=== PATIENT | male | born 1955 | race Caucasian/White ===

== ENCOUNTER 2019-04-22 21:56 | Emergency (ER) | payer MEDICARE, MEDICAID, SELFPAY ==
[2019-04-22 21:57] VITALS: BP 155/96; PULSE 103; PULSE 107; RESP 22; TEMP 36.5; O2SAT 93; O2SAT 95; BMI 39.9
--- NOTE | 2019-04-22 22:05 | EKG12_ITS ---
Test Reason : SOB Blood Pressure : / mmHG Vent. Rate : 100 BPM Atrial Rate : 100 BPM P-R Int : 168 ms QRS Dur : 132 ms QT Int : 364 ms P-R-T Axes : 048 -68 015 degrees QTc Int : 469 ms Normal sinus rhythm Possible Left atrial enlargement Right bundle branch block Left anterior fascicular block Bifascicular block Abnormal ECG Confirmed by KRAIG SINGH ([id number]), web editor ANTOINE GURROLA ([id number]) on 04/27/2019 9:21:57 AM Referred By: CHRISTIAN Confirmed By:KRAIG SINGH
[2019-04-22 22:07] VITALS: BP 149/102; PULSE 98; RESP 18; TEMP 36.5; O2SAT 94
--- NOTE | 2019-04-22 22:12 | NURSING ---
PT STATES HE IS HOMELESS AT THIS TIME AND HAS NOT BEEN TAKING HIS HOME MEDICATIONS. IS UNSURE OF EXACTLY WHICH MEDIATIONS HE IS PRESCRIBED
--- NOTE | 2019-04-22 22:27 | RAD_ITS ---
STUDY: X-RAY CHEST REASON FOR EXAM: Male, 63 years old. sob with cough and just not feeling well x 2 days TECHNIQUE: PA and lateral COMPARISON: None. FINDINGS: There is no demonstrated pleural abnormality. There is scattered mild pulmonary scarring. Normal size heart. Normal mediastinum and kathia. Normal visualized pulmonary arteries. Normal visualized aortic arch and descending thoracic aorta. Normal visualized thoracic spine. Normal visualized ribs, clavicles, and shoulders. There is no demonstrated abnormality of the visualized soft tissue structures of the upper abdomen. RAD/Chest PA and Lateral IMPRESSION: Scattered mild pulmonary scarring Electronically Signed: Hector Wu, at 22:57 EDT Tel , Service support ,
--- NOTE | 2019-04-22 22:33 | ED.VISSUMM ---
- ER Visit Summary Date of Service: 04/22/19 Chief Complaint: Cough History of Present Illness: The patient is a 63 M history of CAD with a prior CABG. History of COPD and diet-controlled diabetes. He states the last 2 days has had nonproductive cough. Chills. No fever. And today developed nausea, vomiting and diarrhea. Denies any chest pain. No leg pain or swelling. No hemoptysis. Physical Examination: Older male no acute distress vital signs stable afebrile. Pulse ox 95% on room air no signs of hypoxia. H EENT exam unremarkable. Moist posterior pharynx. No erythema or exudate. Neck nontender no JVD. No lymphadenopathy. Lungs dry cough but no rales, rhonchi or wheezing. Equal symmetrical. Heart regular rhythm rate about 100 no murmur. Abdomen soft and nontender. Normal bowel sounds no peritoneal signs. Patient is moving all 4 extremities are neurovascular intact. Calves are nontender without edema or cords. Neurologically is awake and alert with no focal motor deficits. Test Results: EKG shows a normal sinus rhythm rate of 100 no signs of AL or ischemia. Patient does have a right bundle branch block. Chest x-ray AP and lateral 2 views read by myself shows no acute abnormality. Normal cardiac silhouette. No significant cardiomegaly. No congestive heart failure. No infiltrate. Emergency Department Course and Treatment: History and exam are consistent with a viral URI. He is a cough but he also has nausea, vomiting and diarrhea. Clinically does not look dehydrated. I do not think he needs labs. Treatment Plan: Zofran as needed for nausea. Fluids and rest. Follow-up with his doctor if not improving. At this time I do not feel he needs any antibiotics. Disposition: Discharge Impression: Acute viral URI (viral syndrome) This note was generated with [email or web address] dictation software. It may contain incorrect words, spelling, and punctuation that were not noted in review of the chart prior to signing ED Disposition - Plan for ED Patient: Referrals: Hector Head DO [Primary Care Provider] -
--- NOTE | 2019-04-22 22:37 | ED.DEP ---
ED Disposition - Plan for ED Patient: Disposition: Home or Assisted Living Instructions: BRONCHITIS, No Antibiotic (Adult) Prescriptions: Ondansetron [Zofran Odt] 4 mg PO Q8H PRN PRN #7 tab PRN Reason: Nausea Prescription Printed Referrals: Hector Head DO [Primary Care Provider] - 3-5 Days if not improving Additional Instructions: Plenty of fluids and rest. [id number] cough syrup as needed. Zofran as needed for nausea. Follow-up with your doctor if not improving. Return to the ER if you are feeling worse
[2019-04-22 22:44] VITALS: BP 157/75; PULSE 102; RESP 17; O2SAT 97
== END 2019-04-22 22:50 | disposition home or self-care (01) ==
PROVIDERS: Emergency Provider Emergency Medicine; PCP Preventive Medicine Occupational Medicine
DX: J06.9 Acute upper respiratory infection, unspecified (principal); I25.10 Atherosclerotic heart disease of native coronary artery without angina pectoris; Z95.1 Presence of aortocoronary bypass graft
CPT/HCPCS: 71046; 93005; 99282

== ENCOUNTER 2019-05-17 18:28 | Inpatient (IN) | payer MEDICARE, MEDICAID, SELFPAY ==
[2019-05-17] VITALS (12 sets, daily range): BP systolic 94–116; BP diastolic 59–85; PULSE 67–84; RESP 13–23; TEMP 35.8–36.9; O2SAT 62–98; BMI 35.9; BMI 34.1
--- NOTE | 2019-05-17 18:31 | EKG12_ITS ---
Test Reason : OVERDOSE Blood Pressure : / mmHG Vent. Rate : 081 BPM Atrial Rate : 081 BPM P-R Int : 188 ms QRS Dur : 130 ms QT Int : 462 ms P-R-T Axes : 067 -64 032 degrees QTc Int : 536 ms Normal sinus rhythm Right bundle branch block Left anterior fascicular block Bifascicular block Abnormal ECG Confirmed by LEXIE MENDOZA, MATEO ([id number]), research editor ANTOINE GURROLA ([id number]) on 05/19/2019 9:36:00 AM Referred By: RAQUEL Confirmed By:ROSALIE OWEN MD
--- NOTE | 2019-05-17 18:33 | ED.VIS.GEN ---
History of Present Illness Chief Complaint: Unresponsive Informant: Patient Onset: Today Context: - - unknown onset Timing: Lasts - until Narcan given by EMS Quality: lethargic/unresponsive Current Severity: gone Maximum Severity: Severe Relieved by: narcan Narrative: Patient admits to snorting heroin prior to eating a sandwich today. Apparently while eating the sandwich he lost consciousness. Patient does remember snorting heroin, does not remember much else. Paramedics gave him 4 mg total of Narcan intranasally, after they saw his only eye was pinpoint. As a result he woke up. Patient denies complaints right now. He is difficult to understand since he is edentulous. He states he did not mean to do heroin; he thought he was doing methamphetamine, as he states he is now upset with his drug dealer. Past Medical History - Allergies and Home Meds Allergies/Adverse Reactions: Allergies Penicillins [PCN] Allergy (Verified 05/17/19 18:33) Rash Primary Care Physician: Hector Head DO [Primary Care Provider] - Smoking Status: Former smoker Drugs: Heroin Review of Systems ROS: Unable to Obtain - limited due to lethargy and edentulous ENT: Denies: Rhinorrhea, Sore throat Cardiovascular: Denies: Chest pain Respiratory: Denies: Dyspnea, Cough, Sputum Gastrointestinal: Denies: Abdominal pain, Nausea, Diarrhea Musculoskeletal: Denies: Neck pain, Back pain, Extremity Pain Neurological: Denies: Headache, Weakness, Numbness Physical Exam Vital Signs/Narrative: Vital Signs Temp Pulse Resp BP Pulse Ox 05/17/19 18:29 96.5 F L 84 18 94/59 L 62 Inital Vital Signs reviewed: Yes General: Well nourished, Well developed, Obese, Unkempt, No Acute Distress Head: Normocephalic, Atraumatic Eyes: - - Right eye pupil pinpoint ENT: Moist mucous membranes - With evidence of emesis/bits of food in his mouth and posterior oropharynx. Airway patent, no stridor, no respiratory distress. No trismus., No rhinorrhea Neck: Supple, Nontender, No lymphadenopathy Cardiovascular: Regular rate, Regular rhythm, No murmurs. Negative for: Tachycardia Respiratory: No distress, Chest nontender, Rales - Coarse breath sounds bilaterally, equal. Trachea midline. Abdomen: Soft, Nontender, Nondistended, Normal bowel sounds Extremities: Nontender, No edema Skin: Normal color, No rash, No Trauma Neurological: Alert, Oriented x3, Cranial nerves II-XII grossly intact, Normal Strength, Normal Sensation, Lethargic - Slightly Psychological: Normal affect, Normal Mood Diagnostic/Tx/Re-eval Impressions Chest X-Ray 05/17/19 18:55 IMPRESSION: Normal x-ray examination of the chest. Electronically Signed: Francois DO Esteban at 19:47 EDT Tel [phone], Service support , 05/17/19 18:55 Chest 1 View (Portable) [RAD] Stat Laboratory Results 05/17/19 05/17/19 05/17/19 18:40 18:40 18:40 WBC 6.8 RBC 4.88 Hgb 14.5 Hct 46.8 MCV 95.9 H MCH 29.7 MCHC 31.0 L RDW Std Deviation 50.8 H RDW Coeff of Julianne 14.4 Plt Count 239 MPV 12.3 H Immature Gran % (Auto) 0.300 Neut % (Auto) 39.5 L Lymph % (Auto) 36.9 [place] % (Auto) 15.5 H Eos % (Auto) 6.2 H Baso % (Auto) 1.6 H Absolute Neuts (auto) 2.7 Absolute Lymphs (auto) 2.50 Nucleated RBC % 0 Sodium 141 Potassium 3.2 L Chloride 105 Carbon Dioxide 31.0 Anion Gap 5 BUN 29 H Creatinine 2.06 H Estim Creat Clear Calc 36.91 Est GFR (MDRD) Af Amer 42 L Est GFR (MDRD) Non-Af 35 L BUN/Creatinine Ratio 14.1 Glucose 208 H Calcium 9.0 Troponin I 0.032 Ethyl Alcohol < 3.0 - Rhythm Strip Rhythm Strip: Sinus Rhythm Rate: 81 Ectopy: None - EKG Initial EKG Interpretation: Sinus Rhythm, No Acute Injury Pattern, RBBB, LAFB Prior: Unchanged - Medical Decision Making Soon after the initial evaluation patient became more lethargic and more hypoxic into the 60s. He was given 2 mg intranasal of Narcan, prior to the IV being placed. He became more alert and did not require any more Narcan throughout his ED stay for the next 2.5 hours. Labs and chest x-ray are above. We took him off of the oxygen, he quickly desatted down to 79%. He required a nonrebreather to stay at or above 90%. Given all that I suspect he probably aspirated as there is evidence of emesis in his mouth upon arrival. It is not showing up on chest x-ray. Plan is for admission and further treatment. - Critical Care Time Critical care time (excluding procedures): 30-74 minutes - 30 min, Including time spent:, Discussing w/Patient &/or Family/Documentation Billing Clerk, Discussing w/Consultants, Arranging Admission or Transfer, Performing Direct Patient Care at Bedside ED Disposition - Plan for ED Patient: Disposition: Acute Care Hospital [facility] Diagnosis: Accidental heroin overdose, Hypoxemia, Aspiration of gastric contents Referrals: Hectro Head DO [Primary Care Provider] -
[2019-05-17] MEDS: Naloxone 2 MG/2 ML Syringe NS (18:35)
--- NOTE | 2019-05-17 18:55 | RAD_ITS ---
STUDY: X-RAY CHEST REASON FOR EXAM: Male, 63 years old. Unresponsive TECHNIQUE: Frontal view COMPARISON: April 22, 2019 FINDINGS: The lungs are clear and expanded. There is no demonstrated pleural abnormality. Normal size heart. Normal mediastinum and kathia. Normal visualized pulmonary arteries. Normal visualized aortic arch and descending thoracic aorta. Normal visualized thoracic spine. Normal visualized ribs, clavicles, and shoulders. There is no demonstrated abnormality of the visualized soft tissue structures of the upper abdomen. RAD/Chest 1 View (Portable) IMPRESSION: Normal x-ray examination of the chest. Electronically Signed: Francois Orellana DO at 19:47 EDT Tel [phone], Service support ,
[2019-05-17 19:04] LABS: Absolute Neutrophil Count 2.7 X10^3/uL (2.0-7.7); Basophil# 0.11 X10^3/uL; Basophil% 1.6 % (0-1); Eosinophil# 0.42 X10^3/uL; Eosinophils% 6.2 % (0-5); Hematocrit 46.8 % (40-54); Hemoglobin 14.5 g/dL (13.0-16.5); Lymphocyte % 36.9 % (19-41); Mean Corpuscular Hgb 29.7 pg (27.0-32.0); Mean Corpuscular Volume 95.9 fL (80-94); Mean Platelet Vol. 12.3 fl (6.2-12.0); Monocyte# 1.05 X10^3/uL; Monocyte% 15.5 % (0-10); NRBC Flagged by Analyzer 0 % (0-5); Neutrophil # 2.67 X10^3/uL (2.7-7.7); Neutrophil % 39.5 % (47-70); Platelet Count 239 K/mm3 (150-450); RBC Distribution Width CV 14.4 % (11.6-14.6); RBC Distribution Width SD 50.8 fl (35.1-43.9); Red Blood Count 4.88 M/mm3 (4.6-6.2); White Blood Count 6.8 K/mm3 (4.4-11.0)
[2019-05-17 19:19] LABS: Anion Gap 5 (5-15); BUN 29 mg/dL (7-18); BUN/Creat Ratio 14.1 RATIO (10-20); Chloride 105 mmol/L (98-107); Creatinine, Serum 2.06 mg/dL (0.70-1.30); EST Glomerular Filtration Rate 35 mL/min (>60); Est Glom Filt Rate - Afr Amer 42 mL/min (>60); Estimated Creatinine Clearance 36.91 ml/min; Glucose 208 mg/dL (74-106); Potassium 3.2 mmol/L (3.5-5.1); Sodium Level 141 mmol/L (136-145)
[2019-05-17 19:32] LABS: Alcohol, Blood (Medical)-Serum < 3.0 mg/dL
--- NOTE | 2019-05-17 21:18 | ED.RN ---
pt consented to giving his car keys to his sister as she states his windows are down.
--- NOTE | 2019-05-17 21:19 | HP.PCM_ITS ---
Problem List (1) Acute respiratory failure with hypoxia Status: Acute (2) Aspiration of gastric contents Status: Acute Qualifiers: Encounter type: initial encounter Qualified Code(s): T17.910A - Gastric contents in respiratory tract, part unspecified causing asphyxiation, initial encounter (3) Accidental heroin overdose Status: Acute Qualifiers: Encounter type: initial encounter Qualified Code(s): T40.1X1A - Poisoning by heroin, accidental (unintentional), initial encounter (4) KAYLEIGH (acute kidney injury) Status: Acute (5) Hypokalemia Status: Acute (6) Hyperglycemia Status: Acute (7) Chronic pain syndrome Status: Chronic (8) Former tobacco use Status: Chronic (9) Polysubstance abuse Status: Chronic History of Present Illness Date of Admission: 05/17/19 Chief Complaint: LOC, Aspiration The patient is a 63 y/o M w/ PMHx: Chronic Pain Syndrome with Neuropathy, Polysubstance abuse, Former Tobacco use, 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 He states he does not normally use cocaine. Work-up in the ED included T 96.5, heart rate 84, BP 94/59, respiratory rate 18, initially 62% on room air with improvement to 92% on a nonrebreather, BC with WBC 6.8, hemoglobin 14.5, platelet 239 with no evidence of left shift, BMP with potassium 3.2, BUN/creatinine 29/2.06, glucose 2 8, troponin 0 0.032, ethyl alcohol less than 3, x-ray with no acute cardiopulmonary findings, EKG with sinus rhythm with right bundle branch block and a left anterior fascicular block with no acute evidence of ischemia. In the ED patient administered additional Narcan therapy. Past Medical History Past Medical History (Chronic Problems): Chronic Problems Chronic pain syndrome (Chronic) Former tobacco use (Chronic) Polysubstance abuse (Chronic) Allergies Penicillins [PCN] Allergy (Verified 05/17/19 18:33) Rash Home Medications: Ambulatory Orders Medication Instructions Recorded Gabapentin [Neurontin] 300 mg PO BID 04/22/19 Surgical History: - - Tonsillectomy, cholecystectomy, left eye surgery following trauma. Psychiatric History: Anxiety, Depression Lives: Friends Smoking Status: Former smoker Tobacco Use: Non-smoker Alcohol: None Drugs: - - Methampetamines, denies heroin but recent usage (snorted) - *Family History Maternal History Items: - - Patient notes a maternal family history of cancer, unclear type. Paternal History Items: - - Patient states he does not know his father well but denies any market heart disease, diabetes or cancer to his knowledge. Review of Systems Constitutional: Reports: Anorexia, Malaise, Weakness, Fatigue. 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 HEENT: Denies: Head Aches, Sinus Congestion, Sinus Drainage Cardiovascular: Reports: Syncope. Denies: Chest Pain, Chest Pressure, Chest Tightness, Light Headedness, Palpitations Respiratory: Reports: Shortness of Breath, Shortness of breath at rest, Shortness of breath upon exertion. Denies: Cough, Sputum production Gastrointestinal: Denies: Abdominal Pain, Nausea, Vomiting Genitourinary: Denies: Dysuria Musculoskeletal: Reports: Back Pain, Joint Pain. Denies: Joint Tenderness Skin: Denies: Rash, Wounds Neurological: Denies: Numbness, Tingling, Focal weakness Psychiatric: Reports: Anxiety, Depression. Denies: Homicidal Ideations, Suicidal Ideations Hematologic/ Lymphatic: Denies: Easy Bruising, Easy Bleeding VTE Information - Inpt Only VTE Present on Admission: No VTE Mechan Device Prophylaxis: SCD's VTE Pharm Prophylaxis ordered?: Yes Patient Problems: Active and Suspected Problems Accidental heroin overdose (Acute) Hypoxemia (Acute) Aspiration of gastric contents (Acute) Acute respiratory failure with hypoxia (Acute) KAYLEIGH (acute kidney injury) (Acute) Hypokalemia (Acute) Hyperglycemia (Acute) Subjective: Seated upright in ED bed, fatigued appearance, notes still dyspneic sensation. Objective: Physical Examination: General: Awakens to stimuli, intermittently alert, lethargic but answering questions although slow response, oriented to self, place and some recent events, remains cooperative, seated upright in the ED bed, no obvious respiratory distress but remains on nonrebreather with significant hypoxia with attempted removal. Skin: normal color, turgor, no icterus, cyanosis. HEENT: AT/NC, EOM right eye intact, left eye globe status post trauma, right pupil round and reactive, dry MM, no carotid bruits or JVD noted. Lungs: Significantly reduced breath sounds throughout, greater bases, mildly decreased effort, nonrebreather in place with no evidence of obvious distress, no rales, ronchi or wheezing. Heart: Regular rate and rhythm; no gallop, rub audible. Abdomen: soft, obese, NTTP, ND, normal BS, no HSM. Extremities: no cyanosis, clubbing, or edema. Neurological: Awakens to stimuli, intermittently alert, lethargic but answering questions although slow response, oriented to self, place and some recent events, remains cooperative, seated upright in the ED bed, no obvious respiratory distress but remains on nonrebreather with significant hypoxia with attempted removal, cognitive function suspected reduced from baseline intact; pupils equally reactive to light and accomodation; cranial nerves II-XII grossly normal, moving all 4 extremities, no focal deficits, strength moderately to severely globally Mari[place] secondary to acute presentation. Psychiatric: affect appears flat, lethargic, no acute evidence of depressive or anxiety feelings. - Physical Exam Vitals/I&O's: Vital Signs Temp Pulse Resp BP Pulse Ox 96.5 F L 72 15 95/72 92 05/17/19 18:29 05/17/19 20:01 05/17/19 20:01 05/17/19 20:01 05/17/19 20:01 Oxygen Flow Rate (L/min) 15 Oxygen Delivery Method Non-Rebreather Weight: 250 lb 3.594 oz Body Mass Index (BMI) 35.9 Laboratory Results 05/17/19 18:40: WBC 6.8, RBC 4.88, Hgb 14.5, Hct 46.8, MCV 95.9 H, MCH 29.7, MCHC 31.0 L, RDW Std Deviation 50.8 H, RDW Coeff of Julianne 14.4, Plt Count 239, MPV 12.3 H, Immature Gran % (Auto) 0.300, Neut % (Auto) 39.5 L, Lymph % (Auto) 36.9, [place] % (Auto) 15.5 H, Eos % (Auto) 6.2 H, Baso % (Auto) 1.6 H, Absolute Neuts (auto) 2.7, Absolute Lymphs (auto) 2.50, Nucleated RBC % 0 05/17/19 18:40: Sodium 141, Potassium 3.2 L, Chloride 105, Carbon Dioxide 31.0, Anion Gap 5, BUN 29 H, Creatinine 2.06 H, Estim Creat Clear Calc 36.91, Est GFR (MDRD) Af Amer 42 L, Est GFR (MDRD) Non-Af 35 L, BUN/Creatinine Ratio 14.1, Glucose 208 H, Calcium 9.0, Troponin I 0.032 05/17/19 18:40: Ethyl Alcohol < 3.0 Assessment/Plan All Active Problems Accidental heroin overdose (Acute) Hypoxemia (Acute) Aspiration of gastric contents (Acute) Acute respiratory failure with hypoxia (Acute) KAYLEIGH (acute kidney injury) (Acute) Hypokalemia (Acute) Hyperglycemia (Acute) The patient is a 63 y/o M w/ PMHx: Chronic Pain Syndrome with Neuropathy, Polysubstance abuse, Former Tobacco use, 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 He states he does not normally use cocaine. 1. Acute hypoxic respiratory failure secondary to Aspiration with suspected pneumonitis with syncopal event secondary to polysubstance abuse: Will admit to ICU, maintain on oxygen with wean as tolerated to room air, continue ATC duonebs, PRN albuterol, maintained on IV Rocephin and Flagyl given allergy history with repeat chest x-ray in a.m., HOB, IS parameters, given removal of NRB with hypoxia will maintain in the ICU to be cautious, obtain ICU consultation. 2. Suspected Acute kidney injury: Secondary to acute presentation with aspiration, polysubstance abuse with LOC,. Admission BUN/Cr 29/2.06 with creatinine clearance 36.91, prior baseline creatinine noted to be 1.0 but timeline lengthy thus could have component of underlying chronic kidney disease. Will hydrate, hold nephrotoxic medications and repeat chemistry in AM. If no improvement would plan FeNa, renal ultrasound assessment. 3. Polysubstance Abuse: Urine drug screen requested, unremarkable ethyl alcohol level, will obtain hepatitis and HIV panel. 4. Hypokalemia: Admission K+ 3.2, magnesium requested, supplementation given, repeat level in AM. 5. Former tobacco use: Encouraged continued tobacco cessation. 6. Chronic Pain Syndrome with Neuropathy: We will continue patient home gabapentin regimen with alterations given #2. 7. Hyperglycemia: Unclear if diabetic, will obtain hemoglobin A1c and in interim maintain on every 6 hours Accu-Cheks with insulin sliding scale as n.p.o. currently until respiratory status improves. 8. DVT prophylaxis: SCDs, Lovenox. Inpatient E&M: [id number] Init Hosp L3
[2019-05-17 22:40] LABS: Magnesium 2.3 mg/dL (1.6-2.6)
[2019-05-17] MEDS: 0.9% Normal Saline 1,000 ML 150 ML IV (22:46)
[2019-05-17] MEDS: Gabapentin 300 MG Capsule PO (22:47)
[2019-05-17 23:01] LABS: Hemoglobin A1c 6.6 % (4.2-6.3)
[2019-05-17 23:17] LABS: HIV - WCH Non-Reactive (Nonreactive)
[2019-05-17] MEDS: metroNIDAZOLE 500 MG/100 ML BAG 100 MG IV (23:26)
[2019-05-17] MEDS: Insulin Lispro 100 UNIT/ML INSULN.PEN SC (23:33)
[2019-05-17 23:40] LABS: Bedside Glucose 164 mg/dL (70-110)
[2019-05-18] VITALS (33 sets, daily range): BP systolic 85–124; BP diastolic 55–81; PULSE 81–98; RESP 12–21; TEMP 36.6–37.7; O2SAT 89–99
[2019-05-18 03:58] LABS: Absolute Lymphocyte Count 0.19 X10^3/uL (0.83-4.51); Absolute Neutrophil Count 7.8 X10^3/uL (2.0-7.7); Basophil# 0.03 X10^3/uL; Basophil% 0.3 % (0-1); Eosinophil# 0.03 X10^3/uL; Eosinophils% 0.3 % (0-5); Hematocrit 44.2 % (40-54); Hemoglobin 13.6 g/dL (13.0-16.5); Lymphocyte # 0.19 X10^3/ul (4.0); Lymphocyte % 2.2 % (19-41); Mean Corp Hgb Conc 30.8 g/dL (32-36); Mean Corpuscular Hgb 29.3 pg (27.0-32.0); Mean Corpuscular Volume 95.3 fL (80-94); Mean Platelet Vol. 11.8 fl (6.2-12.0); Monocyte# 0.53 X10^3/uL; Monocyte% 6.2 % (0-10); NRBC Flagged by Analyzer 0 % (0-5); Neutrophil # 7.78 X10^3/uL (2.7-7.7); Neutrophil % 90.8 % (47-70); POSITIVE DIFFERENTIAL YES; Platelet Count 187 K/mm3 (150-450); RBC Distribution Width CV 14.7 % (11.6-14.6); RBC Distribution Width SD 51.8 fl (35.1-43.9); Red Blood Count 4.64 M/mm3 (4.6-6.2); White Blood Count 8.6 K/mm3 (4.4-11.0)
[2019-05-18 04:07] LABS: Differential Indicated SCAN CRITERIA MET
[2019-05-18 04:44] LABS: ALB/GLOB Ratio 1.2 RATIO (0.9-2.4); AST(SGOT) 37 U/L (15-37); Alanine Aminotransfer ALT/SGPT 39 U/L (16-61); Albumin, Serum 3.8 g/dL (3.2-5.0); Alkaline Phosphatase 53 U/L (45-117); Anion Gap 5 (5-15); BUN 31 mg/dL (7-18); BUN/Creat Ratio 18.9 RATIO (10-20); Calcium,Total 8.4 mg/dL (8.5-10.1); Chloride 106 mmol/L (98-107); Creatinine, Serum 1.64 mg/dL (0.70-1.30); EST Glomerular Filtration Rate 45 mL/min (>60); Est Glom Filt Rate - Afr Amer 54 mL/min (>60); Estimated Creatinine Clearance 47.83 ml/min; Globulin 3.2 g/dL (2.2-4.2); Glucose 163 mg/dL (74-106); Sodium Level 141 mmol/L (136-145)
[2019-05-18] MEDS: 0.9% Normal Saline 1,000 ML 150 ML IV ×2 (05:18→17:56)
[2019-05-18] MEDS: metroNIDAZOLE 500 MG/100 ML BAG 100 MG IV (05:18)
[2019-05-18 05:25] LABS: Bedside Glucose 149 mg/dL (70-110)
--- NOTE | 2019-05-18 05:55 | RAD_ITS ---
STUDY: X-RAY CHEST REASON FOR EXAM: Male, 63 years old patient with dyspnea and cough. TECHNIQUE: Single AP portable view of the chest. COMPARISON: May 17, 2019. FINDINGS: Cardiac monitoring leads are present. The lungs are hyperexpanded. There is interstitial thickening present in both lungs. There are patchy bilateral basilar airspace consolidations and atelectasis. There is no demonstrated pleural abnormality. Normal size heart. Normal mediastinum and kathia. Normal visualized pulmonary arteries. Normal visualized aortic arch and descending thoracic aorta. Normal visualized thoracic spine. Normal visualized ribs, clavicles, and shoulders. There is no demonstrated abnormality of the visualized soft tissue structures of the upper abdomen. RAD/Chest 1 View (Portable) IMPRESSION: Increasing bilateral basilar patchy airspace disease and/or atelectasis. Electronically Signed: Avril Brambila MD at 5:17 EDT , Service support ,
--- NOTE | 2019-05-18 07:34 | PCM.CON.CC ---
Reason for Consult Date of Consultation: 05/18/19 Reason for Consultation: Acute hypoxemic respiratory failure History of Present Illness: The patient is a 63-year-old male, with a history as outlined below, who presented to the emergency department on May 16 after having become unconscious after ingesting heroin. There was concern that at the time the patient became nonresponsive that he may have aspirated on a sandwich that he was attempting to eat. EMS did provide the patient 4 mg of Narcan intranasally in route to the hospital. Shortly after his arrival to the emergency department, there is documentation that he became more lethargic and again required additional Narcan in the ED. There was also documentation that the patient had emesis in his mouth upon arrival. The patient reported to me that he does have a history of occasional methamphetamine use and believed that he was utilizing meth yesterday, rather than heroin. He denies a history of heroin dependency. He does have a prior tobacco abuse history. The patient denies a history of venous thromboembolic disease. He does report a known history of obstructive sleep apnea, for which he is noncompliant with the use of nocturnal Pap therapy. The patient is also apparently homeless and lives in a van in a friend's driveway. On presentation to the emergency department, the patient was noted to be afebrile, but did have a presenting blood pressure of 94/59 mmHg. The patient was hypoxemic on room air, requiring a nonrebreather. Laboratory evaluation revealed no evidence of a leukocytosis. Chemistry profile revealed a potassium of 3.2 along with a creatinine of 2.06. Troponin was negative. The patient's initial plain film chest x-ray was largely unremarkable without focal infiltrate or consolidation. The patient was placed on a Ventimask and administered antimicrobials. He was then admitted to the medical intensive care unit for further management. Past Medical History Past Medical History (Chronic Problems): Chronic Problems Chronic pain syndrome (Chronic) Former tobacco use (Chronic) Polysubstance abuse (Chronic) Allergies Penicillins [PCN] Allergy (Verified 05/17/19 18:33) Rash Home Medications: Ambulatory Orders Medication Instructions Recorded Gabapentin [Neurontin] 300 mg PO BID 04/22/19 Aspirin [Aspir 81] 81 mg PO 05/18/19 Escitalopram Oxalate [Lexapro] 20 mg PO DAILY 05/18/19 Finasteride 5 mg PO 05/18/19 Meloxicam 15 mg PO 05/18/19 Omeprazole 40 mg PO 05/18/19 Pravastatin [Pravachol] 40 mg PO QHS 05/18/19 Valsartan-Hctz 320-25 mg Tab PO DAILY 05/18/19 Surgical History: - - Tonsillectomy, cholecystectomy, left eye surgery following trauma. Psychiatric History: Anxiety, Depression Lives: Friends Smoking Status: Former smoker Tobacco Use: Non-smoker Alcohol: None Drugs: - - Methampetamines, denies heroin but recent usage (snorted) - *Family History Maternal History Items: - - Patient notes a maternal family history of cancer, unclear type. Paternal History Items: - - Patient states he does not know his father well but denies any market heart disease, diabetes or cancer to his knowledge. Review of Systems Constitutional: Denies: Chills, Fever Eyes: Denies: Blurred vision, Double vision HEENT: Denies: Head Aches, Sinus Congestion, Sinus Drainage Cardiovascular: Denies: Chest Pain, Palpitations Respiratory: Reports: Cough, Shortness of Breath, Sputum production, Wheezing Gastrointestinal: Denies: Abdominal Pain, Nausea, Vomiting Genitourinary: Denies: Dysuria Musculoskeletal: Reports: Shoulder Pain Skin: Denies: Rash, Wounds Neurological: Denies: Numbness, Tingling, Focal weakness Psychiatric: Denies: Anxiety, Depression, Homicidal Ideations, Suicidal Ideations Hematologic/ Lymphatic: Denies: Easy Bruising, Easy Bleeding Patient Problems: Active and Suspected Problems Accidental heroin overdose (Acute) Hypoxemia (Acute) Aspiration of gastric contents (Acute) Acute respiratory failure with hypoxia (Acute) KAYLEIGH (acute kidney injury) (Acute) Hypokalemia (Acute) Hyperglycemia (Acute) Objective: The patient's most recent lab work, culture data and imaging studies have all been personally reviewed. - Physical Exam Vitals/I&O's: Vital Signs Temp Pulse Resp BP Pulse Ox 98.8 F 90 16 107/64 92 05/18/19 04:00 05/18/19 07:00 05/18/19 07:00 05/18/19 07:00 05/18/19 07:00 Oxygen Flow Rate (L/min) 12 Oxygen Delivery Method Venturi Mask Weight: 245 lb 2.464 oz Body Mass Index (BMI) 34.1 Intake and Output for Last 24 Hours 05/16/19 05/17/19 05/18/19 23:59 23:59 23:59 Intake Total 250 / 250 1032.5 / 1032.5 Balance 250 / 250 1032.5 / 1032.5 General: Alert, No apparent distress HEENT: Atraumatic, PERRLA, Normocephalic Oral: No Gingival or Mucosal Lesions/ Ulcerations Neck: Supple, No Nodes, Trachea Midline Lungs: No rhonchi, No rales, Diminished, Wheezes Cardiovascular: Regular rate, Regular Rhythm, Normal S1, Normal S2, No murmurs Abdomen: Bowel Sounds Present, Soft, Non Tender, Obese Extremities: No clubbing, No cyanosis, No edema Skin: No breakdown Musculoskeletal: No Muscle Wasting Lymphatic: No Cervical, Supraclavicular, or Inguinal Adenopathy Neurological: - - No focal neurological deficits. Psych/Mental Status: Normal Affect, Appropriate Labs (Last 48 Hours) 05/17/19 05/17/19 05/17/19 18:40 18:40 18:40 WBC 6.8 RBC 4.88 Hgb 14.5 Hct 46.8 MCV 95.9 H MCH 29.7 MCHC 31.0 L RDW Std Deviation 50.8 H RDW Coeff of Julianne 14.4 Plt Count 239 MPV 12.3 H Immature Gran % (Auto) 0.300 Neut % (Auto) 39.5 L Lymph % (Auto) 36.9 Bell % (Auto) 15.5 H Eos % (Auto) 6.2 H Baso % (Auto) 1.6 H Absolute Neuts (auto) 2.7 Absolute Lymphs (auto) 2.50 Nucleated RBC % 0 Differential Comment Sodium 141 Potassium 3.2 L Chloride 105 Carbon Dioxide 31.0 Anion Gap 5 BUN 29 H Creatinine 2.06 H Estim Creat Clear Calc 36.91 Est GFR (MDRD) Af Amer 42 L Est GFR (MDRD) Non-Af 35 L BUN/Creatinine Ratio 14.1 Glucose 208 H Hemoglobin A1c Calcium 9.0 Magnesium Total Bilirubin AST ALT Alkaline Phosphatase Troponin I 0.032 Total Protein Albumin Globulin Albumin/Globulin Ratio Ethyl Alcohol < 3.0 Hepatitis A IgM Ab Hepatitis A Ab Total Hep Bs Antigen Hep B Core Total Ab Hep B Core IgM Ab HIV 1&2 Antibody POC Glucose 05/17/19 05/17/19 05/17/19 18:40 18:40 18:40 WBC RBC Hgb Hct MCV MCH MCHC RDW Std Deviation RDW Coeff of Julianne Plt Count MPV Immature Gran % (Auto) Neut % (Auto) Lymph % (Auto) Bell % (Auto) Eos % (Auto) Baso % (Auto) Absolute Neuts (auto) Absolute Lymphs (auto) Nucleated RBC % Differential Comment Sodium Potassium Chloride Carbon Dioxide Anion Gap BUN Creatinine Estim Creat Clear Calc Est GFR (MDRD) Af Amer Est GFR (MDRD) Non-Af BUN/Creatinine Ratio Glucose Hemoglobin A1c 6.6 H Calcium Magnesium 2.3 Total Bilirubin AST ALT Alkaline Phosphatase Troponin I Total Protein Albumin Globulin Albumin/Globulin Ratio Ethyl Alcohol Hepatitis A IgM Ab Pending Hepatitis A Ab Total Pending Hep Bs Antigen Pending Hep B Core Total Ab Pending Hep B Core IgM Ab Pending HIV 1&2 Antibody POC Glucose 05/17/19 05/17/19 05/18/19 18:40 23:29 03:30 WBC 8.6 RBC 4.64 Hgb 13.6 Hct 44.2 MCV 95.3 H MCH 29.3 MCHC 30.8 L RDW Std Deviation 51.8 H RDW Coeff of Julianne 14.7 H Plt Count 187 MPV 11.8 Immature Gran % (Auto) 0.200 Neut % (Auto) 90.8 H Lymph % (Auto) 2.2 L Bell % (Auto) 6.2 Eos % (Auto) 0.3 Baso % (Auto) 0.3 Absolute Neuts (auto) 7.8 H Absolute Lymphs (auto) 0.19 L Nucleated RBC % 0 Differential Comment Sodium Potassium Chloride Carbon Dioxide Anion Gap BUN Creatinine Estim Creat Clear Calc Est GFR (MDRD) Af Amer Est GFR (MDRD) Non-Af BUN/Creatinine Ratio Glucose Hemoglobin A1c Calcium Magnesium Total Bilirubin AST ALT Alkaline Phosphatase Troponin I Total Protein Albumin Globulin Albumin/Globulin Ratio Ethyl Alcohol Hepatitis A IgM Ab Hepatitis A Ab Total Hep Bs Antigen Hep B Core Total Ab Hep B Core IgM Ab HIV 1&2 Antibody Non-Reactive POC Glucose 164 H 05/18/19 05/18/19 03:30 05:15 WBC RBC Hgb Hct MCV MCH MCHC RDW Std Deviation RDW Coeff of Julianne Plt Count MPV Immature Gran % (Auto) Neut % (Auto) Lymph % (Auto) Bell % (Auto) Eos % (Auto) Baso % (Auto) Absolute Neuts (auto) Absolute Lymphs (auto) Nucleated RBC % Differential Comment Sodium 141 Potassium 4.0 Chloride 106 Carbon Dioxide 30.0 Anion Gap 5 BUN 31 H Creatinine 1.64 H Estim Creat Clear Calc 47.83 Est GFR (MDRD) Af Amer 54 L Est GFR (MDRD) Non-Af 45 L BUN/Creatinine Ratio 18.9 Glucose 163 H Hemoglobin A1c Calcium 8.4 L Magnesium Total Bilirubin 1.00 AST 37 ALT 39 Alkaline Phosphatase 53 Troponin I Total Protein 7.0 Albumin 3.8 Globulin 3.2 Albumin/Globulin Ratio 1.2 Ethyl Alcohol Hepatitis A IgM Ab Hepatitis A Ab Total Hep Bs Antigen Hep B Core Total Ab Hep B Core IgM Ab HIV 1&2 Antibody POC Glucose 149 H Clinical Impression(s) from Imaging Studies Chest X-Ray 05/17/19 18:55 IMPRESSION: Normal x-ray examination of the chest. Electronically Signed: Francois Orellana DO at 19:47 EDT Tel [phone], Service support , Chest X-Ray 05/18/19 05:55 IMPRESSION: Increasing bilateral basilar patchy airspace disease and/or atelectasis. Electronically Signed: Avril Brambila MD at 5:17 EDT , Service support , Current Medications Acetaminophen (Tylenol) 650 mg PO Q6H PRN PRN PRN Reason: Pain Score 1-10/Temp > 100.7 F Al Hydroxide/Mg Hydroxide (Mylanta Ii) 30 ml PO Q6H PRN PRN PRN Reason: Gastric Burning Albuterol Sulfate (Ventolin Aerosols) 2.5 mg INHALATION Q2H PRN PRN PRN Reason: SOB/Wheezing Dextrose (D50w Syringe) 0 gm IV X1 PRN; Protocol PRN Reason: Hypoglycemia Enoxaparin Sodium (Lovenox) 40 mg SC DAILY JAYLYN Gabapentin (Neurontin) 300 mg PO BID JAYLYN Last Admin: 05/17/19 22:47 Dose: 300 mg Documented by: Glucagon () 1 mg IM .X1 PRN PRN Reason: Hypoglycemia Guaifenesin (Robitussin) 10 ml PO Q4H PRN PRN PRN Reason: COUGH Hydralazine HCl (Apresoline Iv) 10 mg IV Q4H PRN PRN PRN Reason: SBP > 160 Sodium Chloride () 1,000 mls @ 150 mls/hr IV .[id number] [facility] Last Infusion: 05/18/19 06:19 Dose: 150 mls/hr Documented by: Ceftriaxone Sodium (Rocephin) 1 gm in 50 mls @ 100 mls/hr IV Q24 JAYLYN Metronidazole (Flagyl) 500 mg in 100 mls @ 100 mls/hr IV Q8 JAYLYN Last Infusion: 05/18/19 06:19 Dose: Infused Documented by: Sodium Chloride () 250 mls @ 15 mls/hr IV .[id number] PRN PRN Reason: Saline Flush Sodium Chloride () 250 mls @ 15 mls/hr IV .[id number] PRN PRN Reason: Additional IVPB Infusion Insulin Human Lispro (Humalog Kwikpen (Bkc)) 0 unit SC Q6 [facility]; Protocol Last Admin: 05/18/19 05:19 Dose: Not Given Documented by: Magnesium Hydroxide (Milk Of Magnesia) 30 ml PO DAILY PRN PRN PRN Reason: Constipation Melatonin (Melatonin) 3 mg PO QHS PRN PRN PRN Reason: INSOMNIA Ondansetron HCl (Zofran) 4 mg IV Q8H PRN PRN PRN Reason: NAUSEA/VOMITING Prochlorperazine Edisylate (Compazine Iv) 5 mg IV Q4H PRN PRN PRN Reason: Breakthrough Nausea/Vomiting Psyllium Hydrophilic Mucilloid (Metamucil) 1 packet PO DAILY PRN PRN PRN Reason: Constipation Senna/Docusate Sodium (Senokot-S, Blaire-Colace) 2 tablet PO BID PRN PRN PRN Reason: Constipation Sodium Chloride () 10 - 40 ml IV UD PRN PRN Reason: SALINE FLUSH Throat Lozenges (Cepacol Sore Throat Lozenge) 1 lozenge MUCOUS MEM Q2H PRN PRN PRN Reason: SORE THROAT Assessment/Plan Active and Suspected Problems Accidental heroin overdose (Acute) Hypoxemia (Acute) Aspiration of gastric contents (Acute) Acute respiratory failure with hypoxia (Acute) KAYLEIGH (acute kidney injury) (Acute) Hypokalemia (Acute) Hyperglycemia (Acute) RECOMMENDATIONS: 1. Check respiratory viral panel and MRSA screen. 2. Check lactate and procalcitonin. 3. Discontinue current antibiotics and transition to cefepime. If MRSA is positive, will add vancomycin. 4. Wean oxygen to maintain saturations at or above 90%. 5. Obtain CT chest. 6. Start patient empirically on BiPAP therapy 22/07 with naps and nightly. IMPRESSIONS: 1. Acute hypoxemic respiratory failure Concern for possible aspiration pneumonitis versus pneumonia, in the setting of a state of unresponsiveness due to heroin ingestion. Will obtain CT chest this morning. Antimicrobials will be transitioned to cefepime as monotherapy. Wean supplemental oxygen to maintain saturations at or above 90%. Check respiratory viral panel and obtain sputum and sent for culture. Check MRSA screen as well. 2. Acute kidney injury Likely prerenal in etiology. Creatinine is improving with IV fluids. Continue to monitor urine output. No current indication for renal replacement therapy. 3. Polysubstance abuse history Continue current supportive measures as noted above. 4. Chronic pain syndrome/obesity/tobacco dependency, now in remission/self-reported obstructive sleep apnea Complicates care, management, recovery and prognosis. Continue home medications as indicated. Recommend empiric utilization of BiPAP therapy with naps and nightly. This note was generated with [employer] dictation software. It may contain incorrect words, spelling, and punctuation that were not noted in checking the note before signing. Inpatient E&M: 30191 Init Hosp L3
--- NOTE | 2019-05-18 07:43 | CT_ITS ---
STUDY: CTA CHEST REASON FOR EXAM: Male, 63 years old. Acute respiratory failure, aspiration after overdose last night, eval for PE vs evolving pneumonia. RADIATION DOSAGE (If Supplied By Facility): CTDIvol = ( 11.47 ) mGy, DLP = ( 558.06 ) mGycm TECHNIQUE: The examination was performed with the intravenous administration of 75mL Isovue 370. Post-processing of the angiographic images was performed, with multiplanar reformation and 3D reconstruction. Individualized dose optimization techniques were used for this CT. COMPARISON: None. FINDINGS: Normal enhancement of the main pulmonary artery and right and left pulmonary arteries. Normal enhancement of the bilateral peripheral pulmonary arteries. There is no demonstrated pulmonary embolism. Normal thoracic aorta and visualized great vessels. There is no demonstrated aortic dissection. Normal heart and pericardium. Normal mediastinum. Mild enlargement of the the right hilar lymph node. Normal visualized trachea and bronchi. The lungs are well expanded. Patchy infiltrate in the posterior segment of the right upper lobe abutting the right major fissure. Mild atelectasis at the lung bases. Normal pleura. Normal chest wall structures. There are degenerative changes of thoracic spine. Normal visualized upper abdomen. CT/CTA Chest W/WO Contrast IMPRESSION: Patchy infiltrate in the posterior segment of the right upper lobe abutting the fissure. Minimal increased markings at the lung bases slightly worse on the right side with blunting of both costophrenic angles. Electronically Signed: Atremio Jarvis, at 9:43 EDT , Service support ,
[2019-05-18] MEDS: Enoxaparin 40 MG/0.4 ML Syringe SC (10:09)
--- NOTE | 2019-05-18 10:48 | CASEMGMT ---
Social Work SW attended interdisciplinary rounds. Per nurse and physician, pt lives in a van in his friend's driveway while he awaits availability from [facility]. Pt admitted with accidental heroin overdose, but did tell physician that he does not normally use heroin but does use meth occasionally and thought this drug was meth. SW to followup with pt however, at this time pt is in precautions and SW is unable to phone pt as he is currently on Bipap. Will defer seeing pt today with hopes to be able to speak with pt tomorrow. ROGER Morton
[2019-05-18 11:12] LABS: Lactic Acid 1.3 mmol/L (0.4-1.9)
[2019-05-18 11:43] LABS: Procalcitonin 1.46 ng/mL (0.00-0.09)
[2019-05-18 12:32] LABS: M R Staph aureus DNA By PCR POSITIVE (Negative); Probe Check PASS
[2019-05-18] MEDS: 0.9% Saline Lock 10 ML Syringe IV (14:39)
[2019-05-18] MEDS: Gabapentin 300 MG Capsule PO ×2 (14:40→21:09)
--- NOTE | 2019-05-18 15:41 | PCM.PROGNOTE ---
Patient Problems: Active and Suspected Problems Accidental heroin overdose (Acute) Hypoxemia (Acute) Aspiration of gastric contents (Acute) Acute respiratory failure with hypoxia (Acute) KAYLEIGH (acute kidney injury) (Acute) Hypokalemia (Acute) Hyperglycemia (Acute) Subjective: Patient was seen and examined today in ICU, I briefly talked with pulmonary medicine about his care, patient is currently on oxygen via Ventimask at an FiO2 of 0.5, he is alert and appropriate, his respiratory panel resulted this afternoon as being negative for tested pathogens. - Physical Exam Vitals/I&O's: Vital Signs Temp Pulse Resp BP Pulse Ox 99.4 F H 92 17 89/55 L 95 05/18/19 08:00 05/18/19 11:00 05/18/19 11:00 05/18/19 11:00 05/18/19 13:28 Oxygen Flow Rate (L/min) 6 Oxygen Delivery Method Nasal Cannula Weight: 111.2 kg Body Mass Index (BMI) 34.1 Intake and Output for Last 24 Hours 05/16/19 05/17/19 05/18/19 23:59 23:59 23:59 Intake Total 250 / 250 2107.5 / 2107.5 Balance 250 / 250 2107.5 / 2107.5 General: Alert, Oriented x3, Cooperative, No apparent distress, Well developed, Well nourished HEENT: Atraumatic, PERRLA, EOMI, Normocephalic Oral: Moist Mucosa Neck: Supple, Trachea Midline, Thyroid Normal Size and Texture Lungs: Clear to auscultation, Normal air movement, No wheeze, Rhonchi - Scattered expiratory rhonchi are noted bilaterally Cardiovascular: Regular rate, Regular Rhythm, Normal S1, Normal S2, No murmurs, PMI Normal Abdomen: Bowel Sounds Present, Soft, Non Tender, Non-Distended Extremities: No clubbing, No cyanosis, No edema, Capillary Refill Less than 3 Seconds Skin: No rashes, No breakdown Musculoskeletal: No Tenderness to Palpation of Joints or Extremities Neurological: Cranial nerves II-XII grossly intact, Neuro grossly intact, Sensory exam intact to light touch and pain, Coordination normal Psych/Mental Status: Normal Affect, Appropriate, Alert and oriented to time, place, person, mood and affect Microbiology Past 72 Hours 05/18/19 10:35 Mucosa - Nasopharyngeal Respiratory Panel (PCR) - Final 05/18/19 06:30 Sputum, Expectorated/Coughed Gram Stain - Final Laboratory Results 05/17/19 18:40: WBC 6.8, RBC 4.88, Hgb 14.5, Hct 46.8, MCV 95.9 H, MCH 29.7, MCHC 31.0 L, RDW Std Deviation 50.8 H, RDW Coeff of Julianne 14.4, Plt Count 239, MPV 12.3 H, Immature Gran % (Auto) 0.300, Neut % (Auto) 39.5 L, Lymph % (Auto) 36.9, [place] % (Auto) 15.5 H, Eos % (Auto) 6.2 H, Baso % (Auto) 1.6 H, Absolute Neuts (auto) 2.7, Absolute Lymphs (auto) 2.50, Nucleated RBC % 0 05/17/19 18:40: Sodium 141, Potassium 3.2 L, Chloride 105, Carbon Dioxide 31.0, Anion Gap 5, BUN 29 H, Creatinine 2.06 H, Estim Creat Clear Calc 36.91, Est GFR (MDRD) Af Amer 42 L, Est GFR (MDRD) Non-Af 35 L, BUN/Creatinine Ratio 14.1, Glucose 208 H, Calcium 9.0, Troponin I 0.032 05/17/19 18:40: Ethyl Alcohol < 3.0 05/17/19 18:40: Magnesium 2.3 05/17/19 18:40: Hemoglobin A1c 6.6 H 05/17/19 18:40: Hepatitis A IgM Ab Pending, Hepatitis A Ab Total Pending, Hep Bs Antigen Pending, Hep B Core Total Ab Pending, Hep B Core IgM Ab Pending 05/17/19 18:40: HIV 1&2 Antibody Non-Reactive 05/17/19 23:29: POC Glucose 164 H 05/18/19 03:30: WBC 8.6, RBC 4.64, Hgb 13.6, Hct 44.2, MCV 95.3 H, MCH 29.3, MCHC 30.8 L, RDW Std Deviation 51.8 H, RDW Coeff of Julianne 14.7 H, Plt Count 187, MPV 11.8, Immature Gran % (Auto) 0.200, Neut % (Auto) 90.8 H, Lymph % (Auto) 2.2 L, [place] % (Auto) 6.2, Eos % (Auto) 0.3, Baso % (Auto) 0.3, Absolute Neuts (auto) 7.8 H, Absolute Lymphs (auto) 0.19 L, Nucleated RBC % 0, Differential Comment 05/18/19 03:30: Sodium 141, Potassium 4.0, Chloride 106, Carbon Dioxide 30.0, Anion Gap 5, BUN 31 H, Creatinine 1.64 H, Estim Creat Clear Calc 47.83, Est GFR (MDRD) Af Amer 54 L, Est GFR (MDRD) Non-Af 45 L, BUN/Creatinine Ratio 18.9, Glucose 163 H, Calcium 8.4 L, Total Bilirubin 1.00, AST 37, ALT 39, Alkaline Phosphatase 53, Total Protein 7.0, Albumin 3.8, Globulin 3.2, Albumin/Globulin Ratio 1.2 05/18/19 05:15: POC Glucose 149 H 05/18/19 10:15: Lactic Acid 1.3 05/18/19 10:15: Procalcitonin 1.46 H 05/18/19 10:15: MRSA (PCR) POSITIVE H Current Medications Acetaminophen (Tylenol) 650 mg PO Q6H PRN PRN PRN Reason: Pain Score 1-10/Temp > 100.7 F Al Hydroxide/Mg Hydroxide (Mylanta Ii) 30 ml PO Q6H PRN PRN PRN Reason: Gastric Burning Albuterol Sulfate (Ventolin Aerosols) 2.5 mg INHALATION Q2H PRN PRN PRN Reason: SOB/Wheezing Dextrose (D50w Syringe) 0 gm IV X1 PRN; Protocol PRN Reason: Hypoglycemia Enoxaparin Sodium (Lovenox) 40 mg SC DAILY [facility] Last Admin: 05/18/19 10:09 Dose: 40 mg Documented by: Gabapentin (Neurontin) 300 mg PO BID [facility] Last Admin: 05/18/19 14:40 Dose: 300 mg Documented by: Glucagon () 1 mg IM .X1 PRN PRN Reason: Hypoglycemia Guaifenesin (Robitussin) 10 ml PO Q4H PRN PRN PRN Reason: COUGH Hydralazine HCl (Apresoline Iv) 10 mg IV Q4H PRN PRN PRN Reason: SBP > 160 Sodium Chloride () 1,000 mls @ 150 mls/hr IV .Q6H40M JAYLYN Last Infusion: 05/18/19 14:39 Dose: 0 mls/hr Documented by: Sodium Chloride () 250 mls @ 15 mls/hr IV .[id number] PRN PRN Reason: Saline Flush Sodium Chloride () 250 mls @ 15 mls/hr IV .[id number] PRN PRN Reason: Additional IVPB Infusion Cefepime HCl 2 gm/ Sodium (Chloride) 100 mls @ 200 mls/hr IV Q8 JAYLYN Last Admin: 05/18/19 14:39 Dose: 200 mls/hr Documented by: Vancomycin IV Pharmacy to Dose (1 ea/ Sodium Chloride) 500 mls @ 250 mls/hr IV X1 PRN; Protocol PRN Reason: Rx to Dose Vancomycin HCl 2,000 mg/ (Sodium Chloride) 540 mls @ 250 mls/hr IV X1 ONE Stop: 05/18/19 16:09 Insulin Human Lispro (Humalog Kwikpen (Bkc)) 0 unit SC [facility]; Protocol Magnesium Hydroxide (Milk Of Magnesia) 30 ml PO DAILY PRN PRN PRN Reason: Constipation Ondansetron HCl (Zofran) 4 mg IV Q8H PRN PRN PRN Reason: NAUSEA/VOMITING Prochlorperazine Edisylate (Compazine Iv) 5 mg IV Q4H PRN PRN PRN Reason: Breakthrough Nausea/Vomiting Psyllium Hydrophilic Mucilloid (Metamucil) 1 packet PO DAILY PRN PRN PRN Reason: Constipation Senna/Docusate Sodium (Senokot-S, Blaire-Colace) 2 tablet PO BID PRN PRN PRN Reason: Constipation Sodium Chloride () 10 - 40 ml IV UD PRN PRN Reason: SALINE FLUSH Last Admin: 05/18/19 14:39 Dose: 10 ml Documented by: Throat Lozenges (Cepacol Sore Throat Lozenge) 1 lozenge MUCOUS MEM Q2H PRN PRN PRN Reason: SORE THROAT Medical Necessity - Tobacco Use Smoking Status: Former smoker Tobacco Use: Non-smoker Assessment/Plan All Active Problems Accidental heroin overdose (Acute) Hypoxemia (Acute) Aspiration of gastric contents (Acute) Acute respiratory failure with hypoxia (Acute) KAYLEIGH (acute kidney injury) (Acute) Hypokalemia (Acute) Hyperglycemia (Acute) #1 acute heroin overdose-patient is alert and appropriate at this time #2 hypoxic respiratory failure secondary to #1-patient is currently on a Ventimask at this time, his oxygen saturation will be monitored, he will be given aerosol treatments #3 aspiration pneumonitis-patient CTA today showed vague infiltrates in both lungs-the emergency room physician documented that there was evidence of vomitus in the patient's mouth on examination there, patient is currently on IV antibiotics-cefepime and vancomycin #4 acute kidney injury-continue IV fluids #5 polysubstance abuse #6 hyperglycemia-etiology unclear, continue to monitor blood sugars Inpatient E&M: 91007 Subs Hosp L2
--- NOTE | 2019-05-18 15:52 | PCM.RX.CS ---
Consult Pharmacy has been consulted to manage selected antiobiotic: Vancomycin Type of Consult: New start Suspected Infection: Pneumonia Prior Doses of Antibiotics Received/Current Regimen: LOADING DOSE OF VANCOMYCIN 2000MG IV GIVEN 05/17 @ 1543 Labs: Sodium 141 mmol/L (136-145) 05/18/19 03:30 Potassium 4.0 mmol/L (3.5-5.1) 05/18/19 03:30 Chloride 106 mmol/L (98-107) 05/18/19 03:30 Carbon Dioxide 30.0 mmol/L (21.0-32.0) 05/18/19 03:30 Anion Gap 5 (5-15) 05/18/19 03:30 BUN 31 mg/dL (7-18) H 05/18/19 03:30 Creatinine 1.64 mg/dL (0.70-1.30) H 05/18/19 03:30 Est GFR (MDRD) Af Amer 54 mL/min (>60) L 05/18/19 03:30 Est GFR (MDRD) Non-Af 45 mL/min (>60) L 05/18/19 03:30 BUN/Creatinine Ratio 18.9 RATIO (10-20) 05/18/19 03:30 Glucose 163 mg/dL (74-106) H 05/18/19 03:30 Microbiology: Microbiology 05/18/19 10:35 Mucosa - Nasopharyngeal Respiratory Panel (PCR) - Final 05/18/19 06:30 Sputum, Expectorated/Coughed Gram Stain - Final Weight used for dosin.2 kg Estimated Creatinine Clearance: 47 Goal Trough: 15-20 mcg/mL Pharmacy Plan for Drug Dosin. Will start dosing regimen of 1000mg IV Q12H starting 05/18 @ 0400 (12 hours after loading dose) 2. Trough scheduled prior to the 4th dose per policy 3. Pharmacy Service will continue to monitor and adjust dosing as required. Labs to be done on [date and time ordered]: 05/20/19 @ 0331
[2019-05-18 19:46] LABS: Bedside Glucose 105 mg/dL (70-110)
[2019-05-18 22:40] LABS: Bedside Glucose 122 mg/dL (70-110)
--- NOTE | 2019-05-18 23:46 | EKG12_ITS ---
Test Reason : RHYTHM CHANGE Blood Pressure : / mmHG Vent. Rate : 134 BPM Atrial Rate : 134 BPM P-R Int : 178 ms QRS Dur : 134 ms QT Int : 330 ms P-R-T Axes : 027 -49 035 degrees QTc Int : 492 ms Sinus tachycardia Left axis deviation Non-specific intra-ventricular conduction block Abnormal ECG When compared with ECG of 17-MAY-2019 18:36, MANUAL COMPARISON REQUIRED, DATA IS UNCONFIRMED Confirmed by YOVANA MENDOZA, MED ([id number]), food editor ANTOINE GURROLA ([id number]) on 05/22/2019 11:12:34 AM Referred By: Confirmed By:MED YEN MD
[2019-05-19] VITALS (30 sets, daily range): BP systolic 94–124; BP diastolic 62–83; PULSE 70–138; RESP 14–23; TEMP 36.6–37.6; O2SAT 90–97
[2019-05-19] MEDS: Metoprolol Tartrate 5 MG/5 ML Vial IV (00:19)
[2019-05-19] MEDS: 0.9% Saline Lock 10 ML Syringe IV ×2 (00:19→17:45)
[2019-05-19 02:59] LABS: Amphetamine Urine VISTA POSITIVE (<1000 ng/mL); Barbiturate Urine VISTA NEGATIVE (< 200 ng/mL); Benzodiazepine Urine VISTA NEGATIVE (< 200 ng/mL); Cocaine Urine VISTA NEGATIVE (< 300 ng/mL); Ecstacy Urine VISTA NEGATIVE (< 500 ng/mL); Methadone Urine VISTA NEGATIVE (< 300 ng/mL); PCP Urine VISTA NEGATIVE (< 25 ng/mL); THC Urine VISTA NEGATIVE (< 50 ng/mL); Vista UDS pH Range 5
[2019-05-19] MEDS: Vancomycin IV 1,000 MG/200 ML BAG 200 MG IV ×2 (04:03→17:45)
[2019-05-19] MEDS: dilTIAZem 25 MG/5 ML Vial 20 MG IV BOLUS (04:03)
[2019-05-19 05:06] LABS: HEPATITIS B SURFACE AG Negative (Negative); Hepatitis A AB, Total Negative (Negative); Hepatitis A IgM Antibody Negative (Negative); Hepatitis B Core AB IgM Negative (Negative); Hepatitis B Core Ab Total Positive (Negative); Hepatitis C Ab >11.0 s/co ratio (0.0-0.9)
[2019-05-19 06:16] LABS: Hep B Surface Antibodies Non Reactive (.)
--- NOTE | 2019-05-19 06:33 | PN_ITS ---
Subjective: The patient was seen and examined at the bedside this morning. Events from the last 24 hours have been reviewed. The patient is currently afebrile, hemodynamically stable and maintaining appropriate oxygen saturations on 4 L/min via nasal cannula. The patient still reports the presence of a cough. Objective: The patient's most recent lab work, culture data and imaging studies have all been personally reviewed. Respiratory viral panel was negative. Sputum culture is currently pending. General: Alert, Cooperative, No apparent distress, - - Sitting in bedside recliner. HEENT: Atraumatic, PERRLA, Normocephalic Oral: No Gingival or Mucosal Lesions/ Ulcerations Neck: Supple, No Nodes, Trachea Midline Lungs: No rhonchi, No wheeze, No rales, Diminished Cardiovascular: Regular rate, Regular Rhythm, Normal S1, Normal S2 Abdomen: Bowel Sounds Present, Soft, Non Tender, Obese Extremities: No clubbing, No cyanosis, No edema Skin: No breakdown Musculoskeletal: No Muscle Wasting Lymphatic: No Cervical, Supraclavicular, or Inguinal Adenopathy Neurological: Neuro grossly intact Psych/Mental Status: Normal Affect, Appropriate Vital Signs Temp Pulse Resp BP Pulse Ox 99.7 F H 83 18 109/66 96 05/19/19 00:00 05/19/19 06:00 05/19/19 06:00 05/19/19 06:00 05/19/19 06:00 Oxygen Flow Rate (L/min) 6 Oxygen Delivery Method Nasal Cannula Weight: 245 lb 2.464 oz Body Mass Index (BMI) 34.1 Intake and Output for Last 24 Hours 05/17/19 05/18/19 05/19/19 23:59 23:59 23:59 Intake Total 250 / 250 4527.0 / 4752.0 705 / 705 Output Total 625 / 925 1600 / 1600 Balance 250 / 250 3902.0 / 3827.0 -895 / -895 Labs (Last 48 Hours) 05/17/19 05/17/19 05/17/19 18:40 18:40 18:40 WBC 6.8 RBC 4.88 Hgb 14.5 Hct 46.8 MCV 95.9 H MCH 29.7 MCHC 31.0 L RDW Std Deviation 50.8 H RDW Coeff of Julianne 14.4 Plt Count 239 MPV 12.3 H Immature Gran % (Auto) 0.300 Neut % (Auto) 39.5 L Lymph % (Auto) 36.9 [place] % (Auto) 15.5 H Eos % (Auto) 6.2 H Baso % (Auto) 1.6 H Absolute Neuts (auto) 2.7 Absolute Lymphs (auto) 2.50 Nucleated RBC % 0 Differential Comment Sodium 141 Potassium 3.2 L Chloride 105 Carbon Dioxide 31.0 Anion Gap 5 BUN 29 H Creatinine 2.06 H Estim Creat Clear Calc 36.91 Est GFR (MDRD) Af Amer 42 L Est GFR (MDRD) Non-Af 35 L BUN/Creatinine Ratio 14.1 Glucose 208 H Hemoglobin A1c Lactic Acid Calcium 9.0 Magnesium Total Bilirubin AST ALT Alkaline Phosphatase Troponin I 0.032 Total Protein Albumin Globulin Albumin/Globulin Ratio Procalcitonin Urine Opiates Screen Urine Methadone Screen Ur Barbiturates Screen Ur Phencyclidine Scrn Ur Amphetamines Screen U Methamphetamin-MDMA U Benzodiazepines Scrn Urine Cocaine Screen U Cannabinoids Screen Ur Drug Screen Comment Ethyl Alcohol < 3.0 Hepatitis A IgM Ab Hepatitis A Ab Total Hep Bs Antigen Hep B Core Total Ab Hep B Core IgM Ab Hepatitis C Ab Confirm HIV 1&2 Antibody MRSA (PCR) POC Glucose 05/17/19 05/17/19 05/17/19 18:40 18:40 18:40 WBC RBC Hgb Hct MCV MCH MCHC RDW Std Deviation RDW Coeff of Julianne Plt Count MPV Immature Gran % (Auto) Neut % (Auto) Lymph % (Auto) [place] % (Auto) Eos % (Auto) Baso % (Auto) Absolute Neuts (auto) Absolute Lymphs (auto) Nucleated RBC % Differential Comment Sodium Potassium Chloride Carbon Dioxide Anion Gap BUN Creatinine Estim Creat Clear Calc Est GFR (MDRD) Af Amer Est GFR (MDRD) Non-Af BUN/Creatinine Ratio Glucose Hemoglobin A1c 6.6 H Lactic Acid Calcium Magnesium 2.3 Total Bilirubin AST ALT Alkaline Phosphatase Troponin I Total Protein Albumin Globulin Albumin/Globulin Ratio Procalcitonin Urine Opiates Screen Urine Methadone Screen Ur Barbiturates Screen Ur Phencyclidine Scrn Ur Amphetamines Screen U Methamphetamin-MDMA U Benzodiazepines Scrn Urine Cocaine Screen U Cannabinoids Screen Ur Drug Screen Comment Ethyl Alcohol Hepatitis A IgM Ab Negative Hepatitis A Ab Total Negative Hep Bs Antigen Negative Hep B Core Total Ab Positive H Hep B Core IgM Ab Negative Hepatitis C Ab Confirm >11.0 H HIV 1&2 Antibody MRSA (PCR) POC Glucose 05/17/19 05/17/19 05/18/19 18:40 23:29 03:30 WBC 8.6 RBC 4.64 Hgb 13.6 Hct 44.2 MCV 95.3 H MCH 29.3 MCHC 30.8 L RDW Std Deviation 51.8 H RDW Coeff of Julianne 14.7 H Plt Count 187 MPV 11.8 Immature Gran % (Auto) 0.200 Neut % (Auto) 90.8 H Lymph % (Auto) 2.2 L [place] % (Auto) 6.2 Eos % (Auto) 0.3 Baso % (Auto) 0.3 Absolute Neuts (auto) 7.8 H Absolute Lymphs (auto) 0.19 L Nucleated RBC % 0 Differential Comment COMMENT Sodium Potassium Chloride Carbon Dioxide Anion Gap BUN Creatinine Estim Creat Clear Calc Est GFR (MDRD) Af Amer Est GFR (MDRD) Non-Af BUN/Creatinine Ratio Glucose Hemoglobin A1c Lactic Acid Calcium Magnesium Total Bilirubin AST ALT Alkaline Phosphatase Troponin I Total Protein Albumin Globulin Albumin/Globulin Ratio Procalcitonin Urine Opiates Screen Urine Methadone Screen Ur Barbiturates Screen Ur Phencyclidine Scrn Ur Amphetamines Screen U Methamphetamin-MDMA U Benzodiazepines Scrn Urine Cocaine Screen U Cannabinoids Screen Ur Drug Screen Comment Ethyl Alcohol Hepatitis A IgM Ab Hepatitis A Ab Total Hep Bs Antigen Hep B Core Total Ab Hep B Core IgM Ab Hepatitis C Ab Confirm HIV 1&2 Antibody Non-Reactive MRSA (PCR) POC Glucose 164 H 05/18/19 05/18/19 05/18/19 03:30 05:15 10:15 WBC RBC Hgb Hct MCV MCH MCHC RDW Std Deviation RDW Coeff of Julianne Plt Count MPV Immature Gran % (Auto) Neut % (Auto) Lymph % (Auto) [place] % (Auto) Eos % (Auto) Baso % (Auto) Absolute Neuts (auto) Absolute Lymphs (auto) Nucleated RBC % Differential Comment Sodium 141 Potassium 4.0 Chloride 106 Carbon Dioxide 30.0 Anion Gap 5 BUN 31 H Creatinine 1.64 H Estim Creat Clear Calc 47.83 Est GFR (MDRD) Af Amer 54 L Est GFR (MDRD) Non-Af 45 L BUN/Creatinine Ratio 18.9 Glucose 163 H Hemoglobin A1c Lactic Acid 1.3 Calcium 8.4 L Magnesium Total Bilirubin 1.00 AST 37 ALT 39 Alkaline Phosphatase 53 Troponin I Total Protein 7.0 Albumin 3.8 Globulin 3.2 Albumin/Globulin Ratio 1.2 Procalcitonin Urine Opiates Screen Urine Methadone Screen Ur Barbiturates Screen Ur Phencyclidine Scrn Ur Amphetamines Screen U Methamphetamin-MDMA U Benzodiazepines Scrn Urine Cocaine Screen U Cannabinoids Screen Ur Drug Screen Comment Ethyl Alcohol Hepatitis A IgM Ab Hepatitis A Ab Total Hep Bs Antigen Hep B Core Total Ab Hep B Core IgM Ab Hepatitis C Ab Confirm HIV 1&2 Antibody MRSA (PCR) POC Glucose 149 H 05/18/19 05/18/19 05/18/19 10:15 10:15 18:44 WBC RBC Hgb Hct MCV MCH MCHC RDW Std Deviation RDW Coeff of Julianne Plt Count MPV Immature Gran % (Auto) Neut % (Auto) Lymph % (Auto) [place] % (Auto) Eos % (Auto) Baso % (Auto) Absolute Neuts (auto) Absolute Lymphs (auto) Nucleated RBC % Differential Comment Sodium Potassium Chloride Carbon Dioxide Anion Gap BUN Creatinine Estim Creat Clear Calc Est GFR (MDRD) Af Amer Est GFR (MDRD) Non-Af BUN/Creatinine Ratio Glucose Hemoglobin A1c Lactic Acid Calcium Magnesium Total Bilirubin AST ALT Alkaline Phosphatase Troponin I Total Protein Albumin Globulin Albumin/Globulin Ratio Procalcitonin 1.46 H Urine Opiates Screen Urine Methadone Screen Ur Barbiturates Screen Ur Phencyclidine Scrn Ur Amphetamines Screen U Methamphetamin-MDMA U Benzodiazepines Scrn Urine Cocaine Screen U Cannabinoids Screen Ur Drug Screen Comment Ethyl Alcohol Hepatitis A IgM Ab Hepatitis A Ab Total Hep Bs Antigen Hep B Core Total Ab Hep B Core IgM Ab Hepatitis C Ab Confirm HIV 1&2 Antibody MRSA (PCR) POSITIVE H POC Glucose 105 05/18/19 05/19/19 22:33 02:15 WBC RBC Hgb Hct MCV MCH MCHC RDW Std Deviation RDW Coeff of Julianne Plt Count MPV Immature Gran % (Auto) Neut % (Auto) Lymph % (Auto) [place] % (Auto) Eos % (Auto) Baso % (Auto) Absolute Neuts (auto) Absolute Lymphs (auto) Nucleated RBC % Differential Comment Sodium Potassium Chloride Carbon Dioxide Anion Gap BUN Creatinine Estim Creat Clear Calc Est GFR (MDRD) Af Amer Est GFR (MDRD) Non-Af BUN/Creatinine Ratio Glucose Hemoglobin A1c Lactic Acid Calcium Magnesium Total Bilirubin AST ALT Alkaline Phosphatase Troponin I Total Protein Albumin Globulin Albumin/Globulin Ratio Procalcitonin Urine Opiates Screen NEGATIVE Urine Methadone Screen NEGATIVE Ur Barbiturates Screen NEGATIVE Ur Phencyclidine Scrn NEGATIVE Ur Amphetamines Screen POSITIVE H U Methamphetamin-MDMA NEGATIVE U Benzodiazepines Scrn NEGATIVE Urine Cocaine Screen NEGATIVE U Cannabinoids Screen NEGATIVE Ur Drug Screen Comment Ethyl Alcohol Hepatitis A IgM Ab Hepatitis A Ab Total Hep Bs Antigen Hep B Core Total Ab Hep B Core IgM Ab Hepatitis C Ab Confirm HIV 1&2 Antibody MRSA (PCR) POC Glucose 122 H Microbiology 05/18/19 10:35 Mucosa - Nasopharyngeal Respiratory Panel (PCR) - Final 05/18/19 06:30 Sputum, Expectorated/Coughed Gram Stain - Final Clinical Impression(s) from Imaging Studies Chest X-Ray 05/17/19 18:55 IMPRESSION: Normal x-ray examination of the chest. Electronically Signed: Francois Orellana DO at 19:47 EDT Tel [phone], Service support , Chest X-Ray 05/18/19 05:55 IMPRESSION: Increasing bilateral basilar patchy airspace disease and/or atelectasis. Electronically Signed: Avril Brambila MD at 5:17 EDT , Service support , Chest CTA 05/18/19 07:43 IMPRESSION: Patchy infiltrate in the posterior segment of the right upper lobe abutting the fissure. Minimal increased markings at the lung bases slightly worse on the right side with blunting of both costophrenic angles. Electronically Signed: Artemio Jarvis, at 9:43 EDT , Service support , Medical Necessity - Tobacco Use Smoking Status: Former smoker Tobacco Use: Non-smoker Assessment/Plan All Active Problems Accidental heroin overdose (Acute) Hypoxemia (Acute) Aspiration of gastric contents (Acute) Acute respiratory failure with hypoxia (Acute) KAYLEIGH (acute kidney injury) (Acute) Hypokalemia (Acute) Hyperglycemia (Acute) RECOMMENDATIONS: 1. Continue empiric antimicrobials, pending infectious work-up. 2. Start scheduled bronchodilators and prednisone 40 mg daily by mouth. 3. Wean supplemental oxygen to maintain saturations at or above 90%. 4. Encourage BiPAP utilization with naps and nightly. 5. Encourage incentive spirometer use and mobilize patient as tolerated. 6. The patient is medically stable for transfer out of the medical intensive care unit. IMPRESSIONS: 1. Acute hypoxemic respiratory failure Concern for possible aspiration pneumonia, based upon findings noted on CTA chest. The patient appears to be improving from a respiratory perspective on empiric antimicrobials and supplemental oxygen. We will wean his oxygen to maintain saturations at or above 90%. The patient will be started on scheduled bronchodilators and prednisone 40 mg daily, given his questionable history of COPD. He will be continued on empiric antimicrobials, pending infectious work- up. 2. Acute kidney injury Improved. Likely prerenal in etiology. Creatinine improved with supplemental IV fluid hydration. Continue to monitor urine output. No current indication for renal replacement therapy. 3. Polysubstance abuse history Continue current supportive measures as noted above. 4. Chronic pain syndrome/obesity/tobacco dependency, now in remission/self- reported obstructive sleep apnea Complicates care, management, recovery and prognosis. Continue home medications as indicated. Recommend empiric utilization of BiPAP therapy with naps and nightly. This note was generated with [employer] dictation software. It may contain incorrect words, spelling, and punctuation that were not noted in checking the note before signing. Inpatient E&M: [id number] [facility] L3
[2019-05-19 07:10] LABS: Bedside Glucose 124 mg/dL (70-110)
[2019-05-19] MEDS: Escitalopram Oxalate 20 MG Tablet PO (08:44)
[2019-05-19] MEDS: Enoxaparin 40 MG/0.4 ML Syringe SC (08:44)
[2019-05-19] MEDS: Finasteride 5 MG Tablet PO (08:44)
[2019-05-19] MEDS: Aspirin E.C. 81 MG Tablet PO (08:44)
[2019-05-19] MEDS: Gabapentin 300 MG Capsule PO ×2 (08:44→22:47)
--- NOTE | 2019-05-19 08:59 | CASEMGMT ---
LEOLA CM Chart review. Presentation: Resp Failure, polysubstance abuse. Pt is on 5-6L NC presently. No home oxygen use. Was on Bipap on admission. Difficult home situation as pt is reportedly living in a van. Pt admitted to snorting heroin, then became unresponsive. Social work to see pt for substance abuse and dc planning. PCP: Dr. Head. Call to office. Pt is still active with practice, but has been no show for last appointments. Insurance: [facility] Prescription Coverage: yes DC Planning: Per SW. Andres LUND RN ACM
[2019-05-19] MEDS: Acetaminophen 325 MG Tablet 650 MG PO (10:26)
[2019-05-19] MEDS: Ipratropium/Albuterol Sulfate 3 ML AMPUL.NEB INHALATION ×2 (11:16→19:12)
--- NOTE | 2019-05-19 11:20 | CASEMGMT ---
Social Work Note SW attempted to meet with pt. Pt currently receiving breathing treatments. SW will follow up with pt later today. SW reviewed chart. Pt had accidental OD on Heroin. Pt had told staff that he only usually uses meth and didn't know he was using heroin. Pt is also staying in his van in his friends driveway while he waits for his metro. SW to speak with pt. Toshia Flores ADMINISTRATIVE FELLOW, TUBING MACHINE OPERATOR
[2019-05-19] MEDS: predniSONE 20 MG Tablet 40 MG PO (11:28)
--- NOTE | 2019-05-19 11:38 | CASEMGMT ---
Addendum entered by Toshia Flores 05/19/19 11:59: Pt also informed this worker that he is not going to use any more drugs when he discharges from [facility]. Original Note: Social Work Assessment Referral Date: 05/18/2019 Date of Assessment 05/19/2019. Reason for referral: Substance abuse Referred by: Personal Status: SW met with pt to complete initial assessment. Pt is alert and orientated x3. SW introduced self and role at [facility]. Pt able to participate in assessment at this time, but barely opened his eyes during conversation. Pt states that he lives with friends in a two story home with about two steps to enter the home. Pt states that he was previously independent with ADLs and still drives. Pt states that his PCP is Dr. Hector Head and his pharmacy is [facility]. Pt denied any DME in the home, denied wearing oxygen at home. Pt is currently on 4 Liters of oxygen. SW informed pt that this worker was updated that he was living in a van in his friends driveway. Pt confirms that he was living in his van in his friends driveway but states that his Metro got approved and he will be moving into his home when he leaves [facility]. SW offered to provide pt with list of homeless shelters and additional housing resources, pt denied. Pt states that his friends are good support for him and that his friends do not use any substances. Mental Health History: Pt states that he has history of anxiety and depression. Pt states that he currently takes medications for his anxiety and depression and they are prescribed through his PCP. Pt denied any history of any suicidal thoughts/plans/ideations. Pt denied any current suicidal thoughts/plans/ideations. Pt states that his OD was NOT a suicide attempt. Substance Abuse History: Pt's toxicology reports indicate that pt tested positive for amphetamines. Per previous notes, pt states that he normally uses only methamphetamine and was under the impression that he was using meth and not heroin when he OD. SW spoke with pt regarding substance abuse history. Pt confirms that he has history of using meth. Pt states that he was clean from meth for about a month until this recent time that he used. Pt confirms that he thought he was only taking meth and not taking heroin. SW asked pt what led him to using again. Pt states I was told that someone had meth and that I could have some of it. Pt denied any history of using heroin. Pt states that he used to be in counseling up until about 4-5 months ago. Pt states that he was going to [facility] and was seeing a counselor named Francois. SW asked pt about why he left counseling. Pt states I was just done, felt like I didn't need it anymore. SW asked pt if he felt that he needed to resume counseling services and pt denied. SW offered to provide pt with counseling resources and pt denied. Pt states his plan is to return home at discharge. Denied any concerns with going home at this time. Pt denied any counseling resources and housing resources. Pt denied any current suicidal thoughts/plan/ideations and states that his OD was NOT a suicide attempt. Plan: Home, monitor for home oxygen Toshia Flores LEAD ETL DEVELOPER, DRYCLEANER
[2019-05-19 11:50] LABS: Bedside Glucose 118 mg/dL (70-110)
[2019-05-19 11:57] LABS: Absolute Lymphocyte Count 0.58 X10^3/uL (0.83-4.51); Absolute Neutrophil Count 10.3 X10^3/uL (2.0-7.7); Basophil# 0.04 X10^3/uL; Basophil% 0.3 % (0-1); Eosinophil# 0.52 X10^3/uL; Eosinophils% 4.2 % (0-5); Hematocrit 40.5 % (40-54); Hemoglobin 12.3 g/dL (13.0-16.5); Lymphocyte # 0.58 X10^3/ul (4.0); Lymphocyte % 4.7 % (19-41); Mean Corp Hgb Conc 30.4 g/dL (32-36); Mean Corpuscular Hgb 29.4 pg (27.0-32.0); Mean Corpuscular Volume 96.9 fL (80-94); Mean Platelet Vol. 12.2 fl (6.2-12.0); Monocyte# 0.84 X10^3/uL; Monocyte% 6.8 % (0-10); NRBC Flagged by Analyzer 0 % (0-5); Neutrophil # 10.34 X10^3/uL (2.7-7.7); Neutrophil % 83.5 % (47-70); POSITIVE DIFFERENTIAL YES; Platelet Count 146 K/mm3 (150-450); RBC Distribution Width CV 14.8 % (11.6-14.6); RBC Distribution Width SD 53.3 fl (35.1-43.9); Red Blood Count 4.18 M/mm3 (4.6-6.2); White Blood Count 12.4 K/mm3 (4.4-11.0)
[2019-05-19 11:58] LABS: Differential Indicated SCAN CRITERIA MET
[2019-05-19 12:03] LABS: Anion Gap 4 (5-15); BUN 22 mg/dL (7-18); BUN/Creat Ratio 20.8 RATIO (10-20); Chloride 104 mmol/L (98-107); Creatinine, Serum 1.06 mg/dL (0.70-1.30); EST Glomerular Filtration Rate 74 mL/min (>60); Est Glom Filt Rate - Afr Amer 90 mL/min (>60); Glucose 118 mg/dL (74-106); Potassium 4.1 mmol/L (3.5-5.1); Sodium Level 139 mmol/L (136-145)
--- NOTE | 2019-05-19 14:39 | PCM.HP.ID ---
Problem List (1) Hypoxemia Status: Acute Reason for Consult: aspiration Consulted by: Dr. Hill History of Present Illness: The patient is a 63 year old M with meth use, presented to ED 05/16 with overdose after accidentally snorting heroin. Thought to have aspirated on his food during that episode. Found to be hypoxic, admitted to icu, on vanc/cefepime this AM. Plan is for transfer out to the floor, pt unable to provide history due to lethargy. ROS unobtainable due to mental status. - Medical History Past Medical History (Chronic Problems): Chronic Problems Chronic pain syndrome (Chronic) Former tobacco use (Chronic) Polysubstance abuse (Chronic) Allergies/Adverse Reactions: Allergies Penicillins [PCN] Allergy (Verified 05/17/19 18:33) Rash Home Medications: Ambulatory Orders Medication Instructions Recorded Gabapentin [Neurontin] 300 mg PO BID 04/22/19 Aspirin [Aspir 81] 81 mg PO 05/18/19 Escitalopram Oxalate [Lexapro] 20 mg PO DAILY 05/18/19 Finasteride 5 mg PO 05/18/19 Meloxicam 15 mg PO 05/18/19 Omeprazole 40 mg PO 05/18/19 Pravastatin [Pravachol] 40 mg PO QHS 05/18/19 Valsartan-Hctz 320-25 mg Tab PO DAILY 05/18/19 - Social History SMOKING STATUS:: Former smoker Vital Signs Temp Pulse Resp BP Pulse Ox 98.0 F 76 16 110/83 H 94 05/19/19 14:00 05/19/19 14:00 05/19/19 14:00 05/19/19 14:00 05/19/19 14:00 Oxygen Flow Rate (L/min) 4 Oxygen Delivery Method Nasal Cannula Weight: 116.6 kg Body Mass Index (BMI) 34.1 Microbiology Past 72 Hours 05/18/19 06:30 Gram Stain - Final Sputum, Expectorated/Coughed Respiratory Culture - Preliminary Staphylococcus aureus Gram negative cocco bacillus 05/18/19 10:35 Respiratory Panel (PCR) - Final Mucosa - Nasopharyngeal Laboratory Tests Past 24 Hrs 05/17/19 05/18/19 05/19/19 18:40 03:30 02:15 WBC RBC Hgb Hct MCV MCH MCHC RDW Std Deviation RDW Coeff of Julianne Plt Count MPV Immature Gran % (Auto) Neut % (Auto) Lymph % (Auto) [place] % (Auto) Eos % (Auto) Baso % (Auto) Absolute Neuts (auto) Absolute Lymphs (auto) Nucleated RBC % Differential Comment COMMENT Sodium Potassium Chloride Carbon Dioxide Anion Gap BUN Creatinine Estim Creat Clear Calc Est GFR (MDRD) Af Amer Est GFR (MDRD) Non-Af BUN/Creatinine Ratio Glucose Calcium Urine Opiates Screen NEGATIVE Urine Methadone Screen NEGATIVE Ur Barbiturates Screen NEGATIVE Ur Phencyclidine Scrn NEGATIVE Ur Amphetamines Screen POSITIVE H U Methamphetamin-MDMA NEGATIVE U Benzodiazepines Scrn NEGATIVE Urine Cocaine Screen NEGATIVE U Cannabinoids Screen NEGATIVE Ur Drug Screen Comment Hepatitis A IgM Ab Negative Hepatitis A Ab Total Negative Hep Bs Antigen Negative Hep B Core Total Ab Positive H Hep B Core IgM Ab Negative Hepatitis C Ab Confirm >11.0 H 05/19/19 05/19/19 11:40 11:40 WBC 12.4 H RBC 4.18 L Hgb 12.3 L Hct 40.5 MCV 96.9 H MCH 29.4 MCHC 30.4 L RDW Std Deviation 53.3 H RDW Coeff of Julianne 14.8 H Plt Count 146 L MPV 12.2 H Immature Gran % (Auto) 0.500 Neut % (Auto) 83.5 H Lymph % (Auto) 4.7 L [place] % (Auto) 6.8 Eos % (Auto) 4.2 Baso % (Auto) 0.3 Absolute Neuts (auto) 10.3 H Absolute Lymphs (auto) 0.58 L Nucleated RBC % 0 Differential Comment COMMENT Sodium 139 Potassium 4.1 Chloride 104 Carbon Dioxide 31.0 Anion Gap 4 L BUN 22 H Creatinine 1.06 Estim Creat Clear Calc 74.00 Est GFR (MDRD) Af Amer 90 Est GFR (MDRD) Non-Af 74 BUN/Creatinine Ratio 20.8 H Glucose 118 H Calcium 9.0 Urine Opiates Screen Urine Methadone Screen Ur Barbiturates Screen Ur Phencyclidine Scrn Ur Amphetamines Screen U Methamphetamin-MDMA U Benzodiazepines Scrn Urine Cocaine Screen U Cannabinoids Screen Ur Drug Screen Comment Hepatitis A IgM Ab Hepatitis A Ab Total Hep Bs Antigen Hep B Core Total Ab Hep B Core IgM Ab Hepatitis C Ab Confirm - Other Studies Radiology: [] reviewed Other Studies: [] Route of nutrition/ use of supplements: [] Nutritional Intake: [] IV Site: [] Sierra Catheter: [] - Physical Exam General: Lethargic - wakes briefly to physical stim HEENT: Atraumatic, PERRLA, EOMI Neck: Supple, No Nodes Lungs: Diminished Cardiovascular: Regular rate, Regular Rhythm, No murmurs Abdomen: Soft, Non Tender, Non-Distended Extremities: No edema Skin: No rashes IV Site: Peripheral, without redness Musculoskeletal: No Tenderness to Palpation of Joints or Extremities Neurological: Cranial nerves II-XII grossly intact - Assessment/Plan Antibiotics: [] Assessment/Plan: [] Active and Suspected Problems Accidental heroin overdose (Acute) Hypoxemia (Acute) Aspiration of gastric contents (Acute) Acute respiratory failure with hypoxia (Acute) KAYLEIGH (acute kidney injury) (Acute) Hypokalemia (Acute) Hyperglycemia (Acute) acute hypoxic resp failure with drug overdose and aspiration pneumonia - sputum cx with staph aureus and GNR, suspected haemophilus. Narrow abx to vanc/ceftriaxone. No fever here. Cr improving. PCT was 1.4. HIV neg. Hep B core (+); would need hep B SAb to prove if it's a cleared infection. Hep C Ab (+), but has had neg PCRs in the distant past; could be at risk for reinfection. May be a candidate for po abx like doxy and omnicef pending further cx data. Will follow, thank you. D/w Dr. Holley and Dr. Hill.
--- NOTE | 2019-05-19 15:13 | PN_ITS ---
Patient Problems: Active and Suspected Problems Accidental heroin overdose (Acute) Hypoxemia (Acute) Aspiration of gastric contents (Acute) Acute respiratory failure with hypoxia (Acute) KAYLEIGH (acute kidney injury) (Acute) Hypokalemia (Acute) Hyperglycemia (Acute) Subjective: Patient was seen and examined today, according to critical care he is stable for transfer to PCU. I had infectious diseases to see the patient to see if we could de-escalate his antibiotic coverage, his antibiotics were changed to vancomycin and Rocephin. Patient does not complain of any shortness of breath or chest discomfort to this examiner. - Physical Exam Vitals/I&O's: Vital Signs Temp Pulse Resp BP Pulse Ox 98.0 F 76 16 110/83 H 94 05/19/19 14:00 05/19/19 14:00 05/19/19 14:00 05/19/19 14:00 05/19/19 14:00 Oxygen Flow Rate (L/min) 4 Oxygen Delivery Method Nasal Cannula Weight: 116.6 kg Body Mass Index (BMI) 34.1 Intake and Output for Last 24 Hours 05/17/19 05/18/19 05/19/19 23:59 23:59 23:59 Intake Total 250 / 250 4527.0 / 4752.0 1465 / 1465 Output Total 625 / 925 2700 / 2700 Balance 250 / 250 3902.0 / 3827.0 -1235 / -1235 General: Alert, Oriented x3, Cooperative, No apparent distress, Well developed HEENT: Atraumatic, PERRLA, EOMI, Normocephalic Oral: Moist Mucosa Neck: Supple, No JVD, Trachea Midline, Thyroid Normal Size and Texture Lungs: Clear to auscultation, Normal air movement, No rhonchi, No wheeze, No rales Cardiovascular: Regular rate, Regular Rhythm, Normal S1, Normal S2, No murmurs, PMI Normal, No rub noted Abdomen: Bowel Sounds Present, Soft, Non Tender, Non-Distended Extremities: No clubbing, No cyanosis, No edema, Capillary Refill Less than 3 Seconds Skin: No rashes, No breakdown Musculoskeletal: No Tenderness to Palpation of Joints or Extremities Neurological: Cranial nerves II-XII grossly intact, Neuro grossly intact, Sensory exam intact to light touch and pain Psych/Mental Status: Normal Affect, Appropriate, Alert and oriented to time, place, person, mood and affect Microbiology Past 72 Hours 05/18/19 06:30 Sputum, Expectorated/Coughed Gram Stain - Final 05/18/19 06:30 Sputum, Expectorated/Coughed Respiratory Culture - Preliminary Staphylococcus aureus Gram negative cocco bacillus 05/18/19 10:35 Mucosa - Nasopharyngeal Respiratory Panel (PCR) - Final Laboratory Results 05/17/19 18:40: Hepatitis A IgM Ab Negative, Hepatitis A Ab Total Negative, Hep Bs Antigen Negative, Hep B Core Total Ab Positive H, Hep B Core IgM Ab Negative, Hepatitis C Ab Confirm >11.0 H 05/18/19 03:30: Differential Comment COMMENT 05/18/19 18:44: POC Glucose 105 05/18/19 22:33: POC Glucose 122 H 05/19/19 02:15: Urine Opiates Screen NEGATIVE, Urine Methadone Screen NEGATIVE, Ur Barbiturates Screen NEGATIVE, Ur Phencyclidine Scrn NEGATIVE, Ur Amphetamines Screen POSITIVE H, U Methamphetamin-MDMA NEGATIVE, U Benzodiazepines Scrn NEGATIVE, Urine Cocaine Screen NEGATIVE, U Cannabinoids Screen NEGATIVE, Ur Drug Screen Comment 05/19/19 07:04: POC Glucose 124 H 05/19/19 11:19: POC Glucose 118 H 05/19/19 11:40: WBC 12.4 H, RBC 4.18 L, Hgb 12.3 L, Hct 40.5, MCV 96.9 H, MCH 29.4, MCHC 30.4 L, RDW Std Deviation 53.3 H, RDW Coeff of Julianne 14.8 H, Plt Count 146 L, MPV 12.2 H, Immature Gran % (Auto) 0.500, Neut % (Auto) 83.5 H, Lymph % (Auto) 4.7 L, [place] % (Auto) 6.8, Eos % (Auto) 4.2, Baso % (Auto) 0.3, Absolute Neuts (auto) 10.3 H, Absolute Lymphs (auto) 0.58 L, Nucleated RBC % 0, Differential Comment COMMENT 05/19/19 11:40: Sodium 139, Potassium 4.1, Chloride 104, Carbon Dioxide 31.0, Anion Gap 4 L, BUN 22 H, Creatinine 1.06, Estim Creat Clear Calc 74.00, Est GFR (MDRD) Af Amer 90, Est GFR (MDRD) Non-Af 74, BUN/Creatinine Ratio 20.8 H, Glucose 118 H, Calcium 9.0 Current Medications Acetaminophen (Tylenol) 650 mg PO Q6H PRN PRN PRN Reason: Pain Score 1-10/Temp > 100.7 F Last Admin: 05/19/19 10:26 Dose: 650 mg Documented by: Albuterol Sulfate (Ventolin Aerosols) 2.5 mg INHALATION Q2H PRN PRN PRN Reason: SOB/Wheezing Albuterol/Ipratropium (Duoneb) 3 ml INHALATION Q4HWA.RT [facility] Last Admin: 05/19/19 11:16 Dose: 3 ml Documented by: Aspirin (Ecotrin) 81 mg PO DAILY [facility] Last Admin: 05/19/19 08:44 Dose: 81 mg Documented by: Dextrose (D50w Syringe) 0 gm IV X1 PRN; Protocol PRN Reason: Hypoglycemia Enoxaparin Sodium (Lovenox) 40 mg SC DAILY [facility] Last Admin: 05/19/19 08:44 Dose: 40 mg Documented by: Escitalopram Oxalate (Lexapro) 20 mg PO DAILY [facility] Last Admin: 05/19/19 08:44 Dose: 20 mg Documented by: Finasteride (Proscar) 5 mg PO DAILY [facility] Last Admin: 05/19/19 08:44 Dose: 5 mg Documented by: Gabapentin (Neurontin) 300 mg PO BID [facility] Last Admin: 05/19/19 08:44 Dose: 300 mg Documented by: Glucagon () 1 mg IM .X1 PRN PRN Reason: Hypoglycemia Guaifenesin (Robitussin) 10 ml PO Q4H PRN PRN PRN Reason: COUGH Sodium Chloride () 250 mls @ 15 mls/hr IV .[id number] PRN PRN Reason: Saline Flush Sodium Chloride () 250 mls @ 15 mls/hr IV .[id number] PRN PRN Reason: Additional IVPB Infusion Cefepime HCl 2 gm/ Sodium (Chloride) 100 mls @ 200 mls/hr IV Q8 [facility] Last Infusion: 05/19/19 15:00 Dose: Infused Documented by: Vancomycin IV Pharmacy to Dose (1 ea/ Sodium Chloride) 500 mls @ 250 mls/hr IV X1 PRN; Protocol PRN Reason: Rx to Dose Vancomycin HCl (Vancomycin) 1,000 mg in 200 mls @ 200 mls/hr IV Q12H [facility] Last Infusion: 05/19/19 06:52 Dose: Infused Documented by: Insulin Human Lispro (Humalog Kwikpen (Bkc)) 0 unit SC [facility]; Protocol Last Admin: 05/19/19 11:28 Dose: Not Given Documented by: Ondansetron HCl (Zofran) 4 mg IV Q8H PRN PRN PRN Reason: NAUSEA/VOMITING Pravastatin Sodium (Pravachol) 40 mg PO QHS [facility] Prednisone () 40 mg PO DAILY@0800 [facility] Last Admin: 05/19/19 11:28 Dose: 40 mg Documented by: Prochlorperazine Edisylate (Compazine Iv) 5 mg IV Q4H PRN PRN PRN Reason: Breakthrough Nausea/Vomiting Senna/Docusate Sodium (Senokot-S, Blaire-Colace) 2 tablet PO BID PRN PRN PRN Reason: Constipation Sodium Chloride () 10 - 40 ml IV UD PRN PRN Reason: SALINE FLUSH Last Admin: 05/19/19 00:19 Dose: 10 ml Documented by: Medical Necessity - Tobacco Use Smoking Status: Former smoker Tobacco Use: Non-smoker Assessment/Plan All Active Problems Accidental heroin overdose (Acute) Hypoxemia (Acute) Aspiration of gastric contents (Acute) Acute respiratory failure with hypoxia (Acute) KAYLEIGH (acute kidney injury) (Acute) Hypokalemia (Acute) Hyperglycemia (Acute) #1 acute heroin overdose-patient is alert and appropriate at this time #2 hypoxic respiratory failure secondary to #1-patient is currently on nasal cannula O2 at this time #3 aspiration pneumonitis-patient's sputum culture resulted positive for staph aureus and a gram-negative wisam suggestive of Haemophilus-I had infectious diseases see the patient and a de-escalated antibiotic coverage to Rocephin and vancomycin. #4 acute kidney injury-creatinine is normal today #5 polysubstance abuse #6 hepatitis B core antibody positive-patient will need follow-up as an outpatient concerning additional testing Inpatient E&M: [id number] [facility] L2
[2019-05-19] MEDS: Insulin Lispro 100 UNIT/ML INSULN.PEN SC ×2 (17:47→22:48)
[2019-05-19 17:55] LABS: Bedside Glucose 186 mg/dL (70-110)
--- NOTE | 2019-05-19 17:56 | NURSING ---
RN returned Karen James, patient's sister phone call. With verbal consent from patient, Karen updated on patient's condition.
[2019-05-19] MEDS: Pravastatin 40 MG Tablet PO (22:49)
[2019-05-19 23:36] LABS: Bedside Glucose 191 mg/dL (70-110)
[2019-05-20] VITALS (14 sets, daily range): BP systolic 119–139; BP diastolic 67–75; PULSE 58–87; RESP 14–20; TEMP 36.3–36.9; O2SAT 93–98
[2019-05-20] MEDS: Vancomycin IV 1,000 MG/200 ML BAG 200 MG IV (05:02)
--- NOTE | 2019-05-20 06:29 | PCM.RX.CS ---
Consult Pharmacy has been consulted to manage selected antiobiotic: Vancomycin Type of Consult: Follow-up Prior Doses of Antibiotics Received/Current Regimen: Medications Vancomycin HCl (Vancomycin) 1,000 mg in 200 mls @ 200 mls/hr IV Q12H JAYLYN Last Admin: 05/20/19 06:02 Dose: Infused Documented by: Labs: Sodium 139 mmol/L (136-145) 05/19/19 11:40 Potassium 4.1 mmol/L (3.5-5.1) 05/19/19 11:40 Chloride 104 mmol/L (98-107) 05/19/19 11:40 Carbon Dioxide 31.0 mmol/L (21.0-32.0) 05/19/19 11:40 Anion Gap 4 (5-15) L 05/19/19 11:40 BUN 22 mg/dL (7-18) H 05/19/19 11:40 Creatinine 1.06 mg/dL (0.70-1.30) 05/19/19 11:40 Est GFR (MDRD) Af Amer 90 mL/min (>60) 05/19/19 11:40 Est GFR (MDRD) Non-Af 74 mL/min (>60) 05/19/19 11:40 BUN/Creatinine Ratio 20.8 RATIO (10-20) H 05/19/19 11:40 Glucose 118 mg/dL (74-106) H 05/19/19 11:40 Vancomycin Trough 11.0 ug/mL (5.0-15.0) 05/20/19 03:30 Microbiology: Microbiology 05/18/19 06:30 Sputum, Expectorated/Coughed Gram Stain - Final 05/18/19 06:30 Sputum, Expectorated/Coughed Respiratory Culture - Preliminary Staphylococcus aureus Gram negative cocco bacillus 05/18/19 10:35 Mucosa - Nasopharyngeal Respiratory Panel (PCR) - Final Weight used for dosin kg Goal Trough: 15-20 mcg/mL Pharmacy Plan for Drug Dosing: Vancomycin trough below goal. Renal function greatly improved from admission. Increase to 1500mg IV q12h and recheck after 4 doses. Pharmacy Service will continue to monitor and adjust dosing as required. Follow-Up Labs: Trough Vancomycin - 05/21 @ 0030
[2019-05-20] MEDS: Ipratropium/Albuterol Sulfate 3 ML AMPUL.NEB INHALATION ×3 (06:54→20:06)
[2019-05-20 07:46] LABS: Bedside Glucose 130 mg/dL (70-110)
--- NOTE | 2019-05-20 08:05 | PN_ITS ---
Patient Problems: Active and Suspected Problems Accidental heroin overdose (Acute) Hypoxemia (Acute) Aspiration of gastric contents (Acute) Acute respiratory failure with hypoxia (Acute) KAYLEIGH (acute kidney injury) (Acute) Hypokalemia (Acute) Hyperglycemia (Acute) Subjective: The patient was seen and examined at the bedside this morning. Events from the last 24 hours have been reviewed. The patient is currently afebrile, hemodynamically stable and maintaining appropriate oxygen saturations on 4 L/min via nasal cannula. The patient tolerated BiPAP last night. Objective: The patient's most recent lab work, culture data and imaging studies have all been personally reviewed. - Physical Exam Vitals/I&O's: Vital Signs Temp Pulse Resp BP Pulse Ox 97.4 F L 74 20 H 126/74 H 94 05/20/19 05:04 05/20/19 07:21 05/20/19 06:56 05/20/19 05:04 05/20/19 06:56 Oxygen Flow Rate (L/min) 4 Oxygen Delivery Method Nasal Cannula Weight: 248 lb 7.375 oz Body Mass Index (BMI) 34.1 Intake and Output for Last 24 Hours 05/18/19 05/19/19 05/20/19 23:59 23:59 23:59 Intake Total 4527.0 / 4752.0 2085 / 2085 200 / 200 Output Total 625 / 925 2700 / 2700 0 / 0 Balance 3902.0 / 3827.0 -615 / -615 200 / 200 General: Alert, No apparent distress HEENT: Atraumatic, Normocephalic Oral: No Gingival or Mucosal Lesions/ Ulcerations Neck: Supple, No Nodes, Trachea Midline Lungs: Diminished Cardiovascular: Regular rate, Regular Rhythm, Normal S1, Normal S2 Abdomen: Bowel Sounds Present, Soft, Non Tender, Obese Extremities: No clubbing, No cyanosis, No edema Skin: No breakdown Musculoskeletal: No Muscle Wasting Lymphatic: No Cervical, Supraclavicular, or Inguinal Adenopathy Neurological: Cranial nerves II-XII grossly intact, Neuro grossly intact Psych/Mental Status: Normal Affect, Appropriate Labs (Last 48 Hours) 05/17/19 05/18/19 05/18/19 18:40 03:30 10:15 WBC RBC Hgb Hct MCV MCH MCHC RDW Std Deviation RDW Coeff of Julianne Plt Count MPV Immature Gran % (Auto) Neut % (Auto) Lymph % (Auto) [place] % (Auto) Eos % (Auto) Baso % (Auto) Absolute Neuts (auto) Absolute Lymphs (auto) Nucleated RBC % Differential Comment COMMENT Sodium Potassium Chloride Carbon Dioxide Anion Gap BUN Creatinine Estim Creat Clear Calc Est GFR (MDRD) Af Amer Est GFR (MDRD) Non-Af BUN/Creatinine Ratio Glucose Lactic Acid 1.3 Calcium Procalcitonin Vancomycin Trough Urine Opiates Screen Urine Methadone Screen Ur Barbiturates Screen Ur Phencyclidine Scrn Ur Amphetamines Screen U Methamphetamin-MDMA U Benzodiazepines Scrn Urine Cocaine Screen U Cannabinoids Screen Ur Drug Screen Comment Hepatitis A IgM Ab Negative Hepatitis A Ab Total Negative Hep Bs Antigen Negative Hep B Core Total Ab Positive H Hep B Core IgM Ab Negative Hepatitis C Ab Confirm >11.0 H MRSA (PCR) POC Glucose 05/18/19 05/18/19 05/18/19 10:15 10:15 18:44 WBC RBC Hgb Hct MCV MCH MCHC RDW Std Deviation RDW Coeff of Julianne Plt Count MPV Immature Gran % (Auto) Neut % (Auto) Lymph % (Auto) [place] % (Auto) Eos % (Auto) Baso % (Auto) Absolute Neuts (auto) Absolute Lymphs (auto) Nucleated RBC % Differential Comment Sodium Potassium Chloride Carbon Dioxide Anion Gap BUN Creatinine Estim Creat Clear Calc Est GFR (MDRD) Af Amer Est GFR (MDRD) Non-Af BUN/Creatinine Ratio Glucose Lactic Acid Calcium Procalcitonin 1.46 H Vancomycin Trough Urine Opiates Screen Urine Methadone Screen Ur Barbiturates Screen Ur Phencyclidine Scrn Ur Amphetamines Screen U Methamphetamin-MDMA U Benzodiazepines Scrn Urine Cocaine Screen U Cannabinoids Screen Ur Drug Screen Comment Hepatitis A IgM Ab Hepatitis A Ab Total Hep Bs Antigen Hep B Core Total Ab Hep B Core IgM Ab Hepatitis C Ab Confirm MRSA (PCR) POSITIVE H POC Glucose 105 05/18/19 05/19/19 05/19/19 22:33 02:15 07:04 WBC RBC Hgb Hct MCV MCH MCHC RDW Std Deviation RDW Coeff of Julianne Plt Count MPV Immature Gran % (Auto) Neut % (Auto) Lymph % (Auto) [place] % (Auto) Eos % (Auto) Baso % (Auto) Absolute Neuts (auto) Absolute Lymphs (auto) Nucleated RBC % Differential Comment Sodium Potassium Chloride Carbon Dioxide Anion Gap BUN Creatinine Estim Creat Clear Calc Est GFR (MDRD) Af Amer Est GFR (MDRD) Non-Af BUN/Creatinine Ratio Glucose Lactic Acid Calcium Procalcitonin Vancomycin Trough Urine Opiates Screen NEGATIVE Urine Methadone Screen NEGATIVE Ur Barbiturates Screen NEGATIVE Ur Phencyclidine Scrn NEGATIVE Ur Amphetamines Screen POSITIVE H U Methamphetamin-MDMA NEGATIVE U Benzodiazepines Scrn NEGATIVE Urine Cocaine Screen NEGATIVE U Cannabinoids Screen NEGATIVE Ur Drug Screen Comment Hepatitis A IgM Ab Hepatitis A Ab Total Hep Bs Antigen Hep B Core Total Ab Hep B Core IgM Ab Hepatitis C Ab Confirm MRSA (PCR) POC Glucose 122 H 124 H 05/19/19 05/19/19 05/19/19 11:19 11:40 11:40 WBC 12.4 H RBC 4.18 L Hgb 12.3 L Hct 40.5 MCV 96.9 H MCH 29.4 MCHC 30.4 L RDW Std Deviation 53.3 H RDW Coeff of Julianne 14.8 H Plt Count 146 L MPV 12.2 H Immature Gran % (Auto) 0.500 Neut % (Auto) 83.5 H Lymph % (Auto) 4.7 L [place] % (Auto) 6.8 Eos % (Auto) 4.2 Baso % (Auto) 0.3 Absolute Neuts (auto) 10.3 H Absolute Lymphs (auto) 0.58 L Nucleated RBC % 0 Differential Comment COMMENT Sodium 139 Potassium 4.1 Chloride 104 Carbon Dioxide 31.0 Anion Gap 4 L BUN 22 H Creatinine 1.06 Estim Creat Clear Calc 74.00 Est GFR (MDRD) Af Amer 90 Est GFR (MDRD) Non-Af 74 BUN/Creatinine Ratio 20.8 H Glucose 118 H Lactic Acid Calcium 9.0 Procalcitonin Vancomycin Trough Urine Opiates Screen Urine Methadone Screen Ur Barbiturates Screen Ur Phencyclidine Scrn Ur Amphetamines Screen U Methamphetamin-MDMA U Benzodiazepines Scrn Urine Cocaine Screen U Cannabinoids Screen Ur Drug Screen Comment Hepatitis A IgM Ab Hepatitis A Ab Total Hep Bs Antigen Hep B Core Total Ab Hep B Core IgM Ab Hepatitis C Ab Confirm MRSA (PCR) POC Glucose 118 H 05/19/19 05/19/19 05/20/19 17:43 22:45 03:30 WBC RBC Hgb Hct MCV MCH MCHC RDW Std Deviation RDW Coeff of Julianne Plt Count MPV Immature Gran % (Auto) Neut % (Auto) Lymph % (Auto) [place] % (Auto) Eos % (Auto) Baso % (Auto) Absolute Neuts (auto) Absolute Lymphs (auto) Nucleated RBC % Differential Comment Sodium Potassium Chloride Carbon Dioxide Anion Gap BUN Creatinine Estim Creat Clear Calc Est GFR (MDRD) Af Amer Est GFR (MDRD) Non-Af BUN/Creatinine Ratio Glucose Lactic Acid Calcium Procalcitonin Vancomycin Trough 11.0 Urine Opiates Screen Urine Methadone Screen Ur Barbiturates Screen Ur Phencyclidine Scrn Ur Amphetamines Screen U Methamphetamin-MDMA U Benzodiazepines Scrn Urine Cocaine Screen U Cannabinoids Screen Ur Drug Screen Comment Hepatitis A IgM Ab Hepatitis A Ab Total Hep Bs Antigen Hep B Core Total Ab Hep B Core IgM Ab Hepatitis C Ab Confirm MRSA (PCR) POC Glucose 186 H 191 H 05/20/19 07:00 WBC RBC Hgb Hct MCV MCH MCHC RDW Std Deviation RDW Coeff of Julianne Plt Count MPV Immature Gran % (Auto) Neut % (Auto) Lymph % (Auto) [place] % (Auto) Eos % (Auto) Baso % (Auto) Absolute Neuts (auto) Absolute Lymphs (auto) Nucleated RBC % Differential Comment Sodium Potassium Chloride Carbon Dioxide Anion Gap BUN Creatinine Estim Creat Clear Calc Est GFR (MDRD) Af Amer Est GFR (MDRD) Non-Af BUN/Creatinine Ratio Glucose Lactic Acid Calcium Procalcitonin Vancomycin Trough Urine Opiates Screen Urine Methadone Screen Ur Barbiturates Screen Ur Phencyclidine Scrn Ur Amphetamines Screen U Methamphetamin-MDMA U Benzodiazepines Scrn Urine Cocaine Screen U Cannabinoids Screen Ur Drug Screen Comment Hepatitis A IgM Ab Hepatitis A Ab Total Hep Bs Antigen Hep B Core Total Ab Hep B Core IgM Ab Hepatitis C Ab Confirm MRSA (PCR) POC Glucose 130 H Microbiology 05/18/19 06:30 Sputum, Expectorated/Coughed Gram Stain - Final 05/18/19 06:30 Sputum, Expectorated/Coughed Respiratory Culture - Preliminary Meth. resistant Staph. aureus Gram negative cocco bacillus 05/18/19 10:35 Mucosa - Nasopharyngeal Respiratory Panel (PCR) - Final Clinical Impression(s) from Imaging Studies Chest X-Ray 05/17/19 18:55 IMPRESSION: Normal x-ray examination of the chest. Electronically Signed: Francois Orellana DO at 19:47 EDT Tel [phone], Service support , Chest X-Ray 05/18/19 05:55 IMPRESSION: Increasing bilateral basilar patchy airspace disease and/or atelectasis. Electronically Signed: Avril Brambila MD at 5:17 EDT , Service support , Chest CTA 05/18/19 07:43 IMPRESSION: Patchy infiltrate in the posterior segment of the right upper lobe abutting the fissure. Minimal increased markings at the lung bases slightly worse on the right side with blunting of both costophrenic angles. Electronically Signed: Artemio Jarvis, at 9:43 EDT , Service support , Current Medications Acetaminophen (Tylenol) 650 mg PO Q6H PRN PRN PRN Reason: Pain Score 1-10/Temp > 100.7 F Last Admin: 05/19/19 10:26 Dose: 650 mg Documented by: Albuterol Sulfate (Ventolin Aerosols) 2.5 mg INHALATION Q2H PRN PRN PRN Reason: SOB/Wheezing Albuterol/Ipratropium (Duoneb) 3 ml INHALATION Q4HWA.RT [facility] Last Admin: 05/20/19 06:54 Dose: 3 ml Documented by: Aspirin (Ecotrin) 81 mg PO DAILY [facility] Last Admin: 05/19/19 08:44 Dose: 81 mg Documented by: Dextrose (D50w Syringe) 0 gm IV X1 PRN; Protocol PRN Reason: Hypoglycemia Enoxaparin Sodium (Lovenox) 40 mg SC DAILY [facility] Last Admin: 05/19/19 08:44 Dose: 40 mg Documented by: Escitalopram Oxalate (Lexapro) 20 mg PO DAILY [facility] Last Admin: 05/19/19 08:44 Dose: 20 mg Documented by: Finasteride (Proscar) 5 mg PO DAILY [facility] Last Admin: 05/19/19 08:44 Dose: 5 mg Documented by: Gabapentin (Neurontin) 300 mg PO BID [facility] Last Admin: 05/19/19 22:47 Dose: 300 mg Documented by: Glucagon () 1 mg IM .X1 PRN PRN Reason: Hypoglycemia Guaifenesin (Robitussin) 10 ml PO Q4H PRN PRN PRN Reason: COUGH Sodium Chloride () 250 mls @ 15 mls/hr IV .[id number] PRN PRN Reason: Saline Flush Sodium Chloride () 250 mls @ 15 mls/hr IV .[id number] PRN PRN Reason: Additional IVPB Infusion Vancomycin IV Pharmacy to Dose (1 ea/ Sodium Chloride) 500 mls @ 250 mls/hr IV X1 PRN; Protocol PRN Reason: Rx to Dose Ceftriaxone Sodium 2 gm/ (Sodium Chloride) 50 mls @ 100 mls/hr IV Q24 [facility] Last Infusion: 05/19/19 20:43 Dose: Infused Documented by: Vancomycin HCl 1,500 mg/ (Sodium Chloride) 530 mls @ 250 mls/hr IV Q12H JAYLYN Insulin Human Lispro (Humalog Kwikpen (Bkc)) 0 unit SC [facility]; Protocol Last Admin: 05/20/19 07:02 Dose: Not Given Documented by: Ondansetron HCl (Zofran) 4 mg IV Q8H PRN PRN PRN Reason: NAUSEA/VOMITING Pravastatin Sodium (Pravachol) 40 mg PO QHS [facility] Last Admin: 05/19/19 22:49 Dose: 40 mg Documented by: Prednisone () 40 mg PO DAILY@0800 [facility] Last Admin: 05/19/19 11:28 Dose: 40 mg Documented by: Sodium Chloride () 10 - 40 ml IV UD PRN PRN Reason: SALINE FLUSH Last Admin: 05/19/19 17:45 Dose: 10 ml Documented by: Medical Necessity - Tobacco Use Smoking Status: Former smoker Tobacco Use: Non-smoker Assessment/Plan All Active Problems Accidental heroin overdose (Acute) Hypoxemia (Acute) Aspiration of gastric contents (Acute) Acute respiratory failure with hypoxia (Acute) KAYLEIGH (acute kidney injury) (Acute) Hypokalemia (Acute) Hyperglycemia (Acute) RECOMMENDATIONS: 1. Continue empiric antimicrobials, per infectious diseases recommendations. 2. Continue bronchodilators and prednisone. 3. Wean supplemental oxygen to maintain saturations at or above 90%. 4. Encourage BiPAP utilization with naps and nightly. 5. Encourage incentive spirometer use and mobilize patient as tolerated. IMPRESSIONS: 1. Acute hypoxemic respiratory failure Concern for possible aspiration pneumonia, based upon findings noted on CTA chest. The patient appears to be improving from a respiratory perspective on empiric antimicrobials and supplemental oxygen. We will wean his oxygen to maintain saturations at or above 90%. The patient will be continued on scheduled bronchodilators and prednisone 40 mg daily, given his questionable history of COPD. 2. Acute kidney injury Improved. Likely prerenal in etiology. Creatinine improved with supplemental IV fluid hydration. Continue to monitor urine output. No current indication for renal replacement therapy. 3. Polysubstance abuse history Continue current supportive measures as noted above. 4. Chronic pain syndrome/obesity/tobacco dependency, now in remission/self- reported obstructive sleep apnea Complicates care, management, recovery and prognosis. Continue home medications as indicated. Recommend empiric utilization of BiPAP therapy with naps and nightly. This note was generated with [employer] dictation software. It may contain incorrect words, spelling, and punctuation that were not noted in checking the note before signing. Inpatient E&M: 86712 [facility]s Hosp L2
[2019-05-20] MEDS: Acetaminophen 325 MG Tablet 650 MG PO (08:15)
[2019-05-20] MEDS: Aspirin E.C. 81 MG Tablet PO (10:40)
[2019-05-20] MEDS: Enoxaparin 40 MG/0.4 ML Syringe SC (10:40)
[2019-05-20] MEDS: predniSONE 20 MG Tablet 40 MG PO (10:40)
[2019-05-20] MEDS: 0.9% Saline Lock 10 ML Syringe IV ×2 (10:40→21:22)
[2019-05-20] MEDS: Finasteride 5 MG Tablet PO (10:40)
[2019-05-20] MEDS: Escitalopram Oxalate 20 MG Tablet PO (10:40)
[2019-05-20] MEDS: Gabapentin 300 MG Capsule PO ×2 (10:40→21:16)
--- NOTE | 2019-05-20 11:19 | PCM.PROGNOTE ---
Patient Problems: Active and Suspected Problems Accidental heroin overdose (Acute) Hypoxemia (Acute) Aspiration of gastric contents (Acute) Acute respiratory failure with hypoxia (Acute) KAYLEIGH (acute kidney injury) (Acute) Hypokalemia (Acute) Hyperglycemia (Acute) Subjective: Patient was seen and examined today, he does not complain of any shortness of breath or chest discomfort, he is still on nasal cannula oxygen, sputum culture resulted positive for MRSA-it is sensitive to doxycycline and clindamycin. - Physical Exam Vitals/I&O's: Vital Signs Temp Pulse Resp BP Pulse Ox 98.3 F 58 L 16 119/67 93 05/20/19 10:36 05/20/19 10:36 05/20/19 10:36 05/20/19 10:36 05/20/19 10:36 Oxygen Flow Rate (L/min) 4 Oxygen Delivery Method Nasal Cannula Weight: 112.7 kg Body Mass Index (BMI) 34.1 Intake and Output for Last 24 Hours 05/18/19 05/19/19 05/20/19 23:59 23:59 23:59 Intake Total 4527.0 / 4752.0 2085 / 2085 200 / 200 Output Total 625 / 925 2700 / 2700 0 / 0 Balance 3902.0 / 3827.0 -615 / -615 200 / 200 General: Alert, Oriented x3, Cooperative, No apparent distress, Well developed HEENT: Atraumatic, PERRLA, EOMI, Normocephalic Oral: Moist Mucosa Neck: Supple, No JVD, Negative Carotid Bruits, Trachea Midline, Thyroid Normal Size and Texture Lungs: Clear to auscultation, Normal air movement, No rhonchi, No wheeze Cardiovascular: Regular rate, Regular Rhythm, Normal S1, Normal S2, No murmurs, PMI Normal, No rub noted, No Gallop Abdomen: Bowel Sounds Present, Soft, Non Tender, Non-Distended, No hernias noted Extremities: No clubbing, No cyanosis, No edema, Capillary Refill Less than 3 Seconds Skin: No rashes, No breakdown Musculoskeletal: No Tenderness to Palpation of Joints or Extremities Neurological: Cranial nerves II-XII grossly intact, Neuro grossly intact, Sensory exam intact to light touch and pain, Coordination normal Psych/Mental Status: Normal Affect, Appropriate, Alert and oriented to time, place, person, mood and affect Microbiology Past 72 Hours 05/18/19 06:30 Sputum, Expectorated/Coughed Gram Stain - Final 05/18/19 06:30 Sputum, Expectorated/Coughed Respiratory Culture - Preliminary Meth. resistant Staph. aureus Gram negative cocco bacillus 05/18/19 10:35 Mucosa - Nasopharyngeal Respiratory Panel (PCR) - Final Laboratory Results 05/19/19 11:19: POC Glucose 118 H 05/19/19 11:40: WBC 12.4 H, RBC 4.18 L, Hgb 12.3 L, Hct 40.5, MCV 96.9 H, MCH 29.4, MCHC 30.4 L, RDW Std Deviation 53.3 H, RDW Coeff of Julianne 14.8 H, Plt Count 146 L, MPV 12.2 H, Immature Gran % (Auto) 0.500, Neut % (Auto) 83.5 H, Lymph % (Auto) 4.7 L, [place] % (Auto) 6.8, Eos % (Auto) 4.2, Baso % (Auto) 0.3, Absolute Neuts (auto) 10.3 H, Absolute Lymphs (auto) 0.58 L, Nucleated RBC % 0, Differential Comment COMMENT 05/19/19 11:40: Sodium 139, Potassium 4.1, Chloride 104, Carbon Dioxide 31.0, Anion Gap 4 L, BUN 22 H, Creatinine 1.06, Estim Creat Clear Calc 74.00, Est GFR (MDRD) Af Amer 90, Est GFR (MDRD) Non-Af 74, BUN/Creatinine Ratio 20.8 H, Glucose 118 H, Calcium 9.0 05/19/19 17:43: POC Glucose 186 H 05/19/19 22:45: POC Glucose 191 H 05/20/19 03:30: Vancomycin Trough 11.0 05/20/19 07:00: POC Glucose 130 H Current Medications Acetaminophen (Tylenol) 650 mg PO Q6H PRN PRN PRN Reason: Pain Score 1-10/Temp > 100.7 F Last Admin: 05/20/19 08:15 Dose: 650 mg Documented by: Albuterol Sulfate (Ventolin Aerosols) 2.5 mg INHALATION Q2H PRN PRN PRN Reason: SOB/Wheezing Albuterol/Ipratropium (Duoneb) 3 ml INHALATION Q4HWA.RT [facility] Last Admin: 05/20/19 06:54 Dose: 3 ml Documented by: Aspirin (Ecotrin) 81 mg PO DAILY [facility] Last Admin: 05/20/19 10:40 Dose: 81 mg Documented by: Dextrose (D50w Syringe) 0 gm IV X1 PRN; Protocol PRN Reason: Hypoglycemia Enoxaparin Sodium (Lovenox) 40 mg SC DAILY [facility] Last Admin: 05/20/19 10:40 Dose: 40 mg Documented by: Escitalopram Oxalate (Lexapro) 20 mg PO DAILY [facility] Last Admin: 05/20/19 10:40 Dose: 20 mg Documented by: Finasteride (Proscar) 5 mg PO DAILY [facility] Last Admin: 05/20/19 10:40 Dose: 5 mg Documented by: Gabapentin (Neurontin) 300 mg PO BID [facility] Last Admin: 05/20/19 10:40 Dose: 300 mg Documented by: Glucagon () 1 mg IM .X1 PRN PRN Reason: Hypoglycemia Guaifenesin (Robitussin) 10 ml PO Q4H PRN PRN PRN Reason: COUGH Sodium Chloride () 250 mls @ 15 mls/hr IV .[id number] PRN PRN Reason: Saline Flush Sodium Chloride () 250 mls @ 15 mls/hr IV .[id number] PRN PRN Reason: Additional IVPB Infusion Vancomycin IV Pharmacy to Dose (1 ea/ Sodium Chloride) 500 mls @ 250 mls/hr IV X1 PRN; Protocol PRN Reason: Rx to Dose Ceftriaxone Sodium 2 gm/ (Sodium Chloride) 50 mls @ 100 mls/hr IV Q24 [facility] Last Admin: 05/20/19 10:46 Dose: 100 mls/hr Documented by: Vancomycin HCl 1,500 mg/ (Sodium Chloride) 530 mls @ 250 mls/hr IV Q12H [facility] Insulin Human Lispro (Humalog Kwikpen (Bkc)) 0 unit SC ACHS [facility]; Protocol Last Admin: 05/20/19 07:02 Dose: Not Given Documented by: Ondansetron HCl (Zofran) 4 mg IV Q8H PRN PRN PRN Reason: NAUSEA/VOMITING Pravastatin Sodium (Pravachol) 40 mg PO QHS [facility] Last Admin: 05/19/19 22:49 Dose: 40 mg Documented by: Prednisone () 40 mg PO DAILY@0800 [facility] Last Admin: 05/20/19 10:40 Dose: 40 mg Documented by: Sodium Chloride () 10 - 40 ml IV UD PRN PRN Reason: SALINE FLUSH Last Admin: 05/20/19 10:40 Dose: 10 ml Documented by: Medical Necessity - Tobacco Use Smoking Status: Former smoker Tobacco Use: Non-smoker Assessment/Plan All Active Problems Accidental heroin overdose (Acute) Hypoxemia (Acute) Aspiration of gastric contents (Acute) Acute respiratory failure with hypoxia (Acute) KAYLEIGH (acute kidney injury) (Acute) Hypokalemia (Acute) Hyperglycemia (Acute) #1 acute heroin overdose-patient is alert and appropriate at this time #2 hypoxic respiratory failure secondary to #1-patient is currently on nasal cannula O2 at this time #3 aspiration pneumonitis-patient's sputum culture resulted positive for MRSA and a gram-negative wisam suggestive of Haemophilus-I had infectious diseases see the patient and a de-escalated antibiotic coverage to Rocephin and vancomycin yesterday. #4 acute kidney injury-creatinine is normal today #5 polysubstance abuse #6 hepatitis B core antibody positive-patient will need follow-up as an outpatient concerning additional testing Inpatient E&M: 85521 Subs Hosp L2
[2019-05-20 12:01] LABS: Bedside Glucose 107 mg/dL (70-110)
[2019-05-20 16:35] LABS: Bedside Glucose 165 mg/dL (70-110)
[2019-05-20] MEDS: Insulin Lispro 100 UNIT/ML INSULN.PEN SC ×2 (16:42→21:17)
[2019-05-20] MEDS: Pravastatin 40 MG Tablet PO (21:17)
[2019-05-20 22:25] LABS: Bedside Glucose 194 mg/dL (70-110)
[2019-05-21] VITALS (16 sets, daily range): BP systolic 142–154; BP diastolic 71–102; PULSE 64–83; RESP 14–20; TEMP 36.7–37.4; O2SAT 30–96
[2019-05-21 06:56] LABS: Bedside Glucose 99 mg/dL (70-110)
[2019-05-21] MEDS: Ipratropium/Albuterol Sulfate 3 ML AMPUL.NEB INHALATION ×4 (07:44→19:28)
[2019-05-21] MEDS: Acetaminophen 325 MG Tablet 650 MG PO ×2 (08:35→15:25)
--- NOTE | 2019-05-21 08:39 | PCM.PN.PUL ---
Patient Problems: Active and Suspected Problems Accidental heroin overdose (Acute) Hypoxemia (Acute) Aspiration of gastric contents (Acute) Acute respiratory failure with hypoxia (Acute) KAYLEIGH (acute kidney injury) (Acute) Hypokalemia (Acute) Hyperglycemia (Acute) Subjective: The patient was seen and examined at the bedside this morning. Events from the last 24 hours have been reviewed. The patient is currently afebrile, hemodynamically stable and maintaining appropriate oxygen saturations on 4 L/min via nasal cannula. No overnight issues were identified. Objective: The patient's most recent lab work, culture data and imaging studies have all been personally reviewed. Sputum culture was positive for MRSA and Haemophilus influenza. - Physical Exam Vitals/I&O's: Vital Signs Temp Pulse Resp BP Pulse Ox 98.3 F 82 18 152/71 H 96 05/21/19 04:00 05/21/19 07:44 05/21/19 07:44 05/21/19 04:00 05/21/19 04:00 Oxygen Flow Rate (L/min) 4 Oxygen Delivery Method Nasal Cannula Weight: 249 lb 5.485 oz Body Mass Index (BMI) 34.1 Intake and Output for Last 24 Hours 05/19/19 05/20/19 05/21/19 23:59 23:59 23:59 Intake Total 2085 / 2085 1590 / 1590 680 / 680 Output Total 2700 / 2700 0 / 0 Balance -615 / -615 1590 / 1590 680 / 680 General: Alert, Cooperative, No apparent distress, - - Sitting in bedside recliner. HEENT: Atraumatic, Normocephalic Oral: No Gingival or Mucosal Lesions/ Ulcerations Neck: Supple, No Nodes, Trachea Midline Lungs: No rhonchi, No wheeze, No rales, Diminished Cardiovascular: Regular rate, Regular Rhythm, Normal S1, Normal S2, No murmurs Abdomen: Bowel Sounds Present, Soft, Non Tender, Obese Extremities: No clubbing, No cyanosis, No edema Skin: No breakdown Musculoskeletal: No Tenderness to Palpation of Joints or Extremities Lymphatic: No Cervical, Supraclavicular, or Inguinal Adenopathy Neurological: Neuro grossly intact Psych/Mental Status: Normal Affect, Appropriate Labs (Last 48 Hours) 05/19/19 05/19/19 05/19/19 11:19 11:40 11:40 WBC 12.4 H RBC 4.18 L Hgb 12.3 L Hct 40.5 MCV 96.9 H MCH 29.4 MCHC 30.4 L RDW Std Deviation 53.3 H RDW Coeff of Julianne 14.8 H Plt Count 146 L MPV 12.2 H Immature Gran % (Auto) 0.500 Neut % (Auto) 83.5 H Lymph % (Auto) 4.7 L [place] % (Auto) 6.8 Eos % (Auto) 4.2 Baso % (Auto) 0.3 Absolute Neuts (auto) 10.3 H Absolute Lymphs (auto) 0.58 L Nucleated RBC % 0 Differential Comment COMMENT Sodium 139 Potassium 4.1 Chloride 104 Carbon Dioxide 31.0 Anion Gap 4 L BUN 22 H Creatinine 1.06 Estim Creat Clear Calc 74.00 Est GFR (MDRD) Af Amer 90 Est GFR (MDRD) Non-Af 74 BUN/Creatinine Ratio 20.8 H Glucose 118 H Calcium 9.0 Vancomycin Trough POC Glucose 118 H 05/19/19 05/19/19 05/20/19 17:43 22:45 03:30 WBC RBC Hgb Hct MCV MCH MCHC RDW Std Deviation RDW Coeff of Julianne Plt Count MPV Immature Gran % (Auto) Neut % (Auto) Lymph % (Auto) [place] % (Auto) Eos % (Auto) Baso % (Auto) Absolute Neuts (auto) Absolute Lymphs (auto) Nucleated RBC % Differential Comment Sodium Potassium Chloride Carbon Dioxide Anion Gap BUN Creatinine Estim Creat Clear Calc Est GFR (MDRD) Af Amer Est GFR (MDRD) Non-Af BUN/Creatinine Ratio Glucose Calcium Vancomycin Trough 11.0 POC Glucose 186 H 191 H 05/20/19 05/20/19 05/20/19 07:00 11:44 16:30 WBC RBC Hgb Hct MCV MCH MCHC RDW Std Deviation RDW Coeff of Julianne Plt Count MPV Immature Gran % (Auto) Neut % (Auto) Lymph % (Auto) [place] % (Auto) Eos % (Auto) Baso % (Auto) Absolute Neuts (auto) Absolute Lymphs (auto) Nucleated RBC % Differential Comment Sodium Potassium Chloride Carbon Dioxide Anion Gap BUN Creatinine Estim Creat Clear Calc Est GFR (MDRD) Af Amer Est GFR (MDRD) Non-Af BUN/Creatinine Ratio Glucose Calcium Vancomycin Trough POC Glucose 130 H 107 165 H 05/20/19 05/21/19 21:00 06:41 WBC RBC Hgb Hct MCV MCH MCHC RDW Std Deviation RDW Coeff of Julianne Plt Count MPV Immature Gran % (Auto) Neut % (Auto) Lymph % (Auto) [place] % (Auto) Eos % (Auto) Baso % (Auto) Absolute Neuts (auto) Absolute Lymphs (auto) Nucleated RBC % Differential Comment Sodium Potassium Chloride Carbon Dioxide Anion Gap BUN Creatinine Estim Creat Clear Calc Est GFR (MDRD) Af Amer Est GFR (MDRD) Non-Af BUN/Creatinine Ratio Glucose Calcium Vancomycin Trough POC Glucose 194 H 99 Microbiology 05/18/19 06:30 Sputum, Expectorated/Coughed Gram Stain - Final 05/18/19 06:30 Sputum, Expectorated/Coughed Respiratory Culture - Final Meth. resistant Staph. aureus Haemophilus influenzae Clinical Impression(s) from Imaging Studies Chest X-Ray 05/17/19 18:55 IMPRESSION: Normal x-ray examination of the chest. Electronically Signed: Francois Orellana DO at 19:47 EDT Tel [phone], Service support , Chest X-Ray 05/18/19 05:55 IMPRESSION: Increasing bilateral basilar patchy airspace disease and/or atelectasis. Electronically Signed: Avril Brambila MD at 5:17 EDT , Service support , Chest CTA 05/18/19 07:43 IMPRESSION: Patchy infiltrate in the posterior segment of the right upper lobe abutting the fissure. Minimal increased markings at the lung bases slightly worse on the right side with blunting of both costophrenic angles. Electronically Signed: Artemio Jarvis, at 9:43 EDT , Service support , Current Medications Acetaminophen (Tylenol) 650 mg PO Q6H PRN PRN PRN Reason: Pain Score 1-10/Temp > 100.7 F Last Admin: 05/21/19 08:35 Dose: 650 mg Documented by: Albuterol Sulfate (Ventolin Aerosols) 2.5 mg INHALATION Q2H PRN PRN PRN Reason: SOB/Wheezing Albuterol/Ipratropium (Duoneb) 3 ml INHALATION Q4HWA.RT [facility] Last Admin: 05/21/19 07:44 Dose: 3 ml Documented by: Aspirin (Ecotrin) 81 mg PO DAILY [facility] Last Admin: 05/20/19 10:40 Dose: 81 mg Documented by: Dextrose (D50w Syringe) 0 gm IV X1 PRN; Protocol PRN Reason: Hypoglycemia Enoxaparin Sodium (Lovenox) 40 mg SC DAILY [facility] Last Admin: 05/20/19 10:40 Dose: 40 mg Documented by: Escitalopram Oxalate (Lexapro) 20 mg PO DAILY [facility] Last Admin: 05/20/19 10:40 Dose: 20 mg Documented by: Finasteride (Proscar) 5 mg PO DAILY [facility] Last Admin: 05/20/19 10:40 Dose: 5 mg Documented by: Gabapentin (Neurontin) 300 mg PO BID [facility] Last Admin: 05/20/19 21:16 Dose: 300 mg Documented by: Glucagon () 1 mg IM .X1 PRN PRN Reason: Hypoglycemia Guaifenesin (Robitussin) 10 ml PO Q4H PRN PRN PRN Reason: COUGH Sodium Chloride () 250 mls @ 15 mls/hr IV .[id number] PRN PRN Reason: Saline Flush Sodium Chloride () 250 mls @ 15 mls/hr IV .[id number] PRN PRN Reason: Additional IVPB Infusion Vancomycin IV Pharmacy to Dose (1 ea/ Sodium Chloride) 500 mls @ 250 mls/hr IV X1 PRN; Protocol PRN Reason: Rx to Dose Ceftriaxone Sodium 2 gm/ (Sodium Chloride) 50 mls @ 100 mls/hr IV Q24 [facility] Last Infusion: 05/20/19 11:16 Dose: Infused Documented by: Vancomycin HCl 1,500 mg/ (Sodium Chloride) 530 mls @ 250 mls/hr IV Q12H [facility] Last Infusion: 05/21/19 03:41 Dose: Infused Documented by: Insulin Human Lispro (Humalog Kwikpen (Bkc)) 0 unit SC ACHS [facility]; Protocol Last Admin: 05/21/19 06:45 Dose: Not Given Documented by: Ondansetron HCl (Zofran) 4 mg IV Q8H PRN PRN PRN Reason: NAUSEA/VOMITING Pravastatin Sodium (Pravachol) 40 mg PO QHS [facility] Last Admin: 05/20/19 21:17 Dose: 40 mg Documented by: Prednisone () 40 mg PO DAILY@0800 [facility] Last Admin: 05/20/19 10:40 Dose: 40 mg Documented by: Sodium Chloride () 10 - 40 ml IV UD PRN PRN Reason: SALINE FLUSH Last Admin: 05/20/19 21:22 Dose: 10 ml Documented by: Medical Necessity - Tobacco Use Smoking Status: Former smoker Tobacco Use: Non-smoker Assessment/Plan All Active Problems Accidental heroin overdose (Acute) Hypoxemia (Acute) Aspiration of gastric contents (Acute) Acute respiratory failure with hypoxia (Acute) KAYLEIGH (acute kidney injury) (Acute) Hypokalemia (Acute) Hyperglycemia (Acute) RECOMMENDATIONS: 1. Continue empiric antimicrobials, per infectious diseases recommendations. 2. Continue bronchodilators and prednisone. 3. Wean supplemental oxygen to maintain saturations at or above 90%. 4. Encourage BiPAP utilization with naps and nightly. 5. Encourage incentive spirometer use and mobilize patient as tolerated. IMPRESSIONS: 1. Acute hypoxemic respiratory failure Concern for pneumonia, based upon findings noted on CTA chest. The patient appears to be improving from a respiratory perspective on empiric antimicrobials and supplemental oxygen. We will wean his oxygen to maintain saturations at or above 90%. The patient will be continued on scheduled bronchodilators and prednisone 40 mg daily, given his questionable history of COPD. 2. Acute kidney injury Improved. Likely prerenal in etiology. Creatinine improved with supplemental IV fluid hydration. Continue to monitor urine output. No current indication for renal replacement therapy. 3. Polysubstance abuse history Continue current supportive measures as noted above. 4. Chronic pain syndrome/obesity/tobacco dependency, now in remission/self-reported obstructive sleep apnea Complicates care, management, recovery and prognosis. Continue home medications as indicated. Recommend empiric utilization of BiPAP therapy with naps and nightly. This note was generated with [employer] software. It may contain incorrect words, spelling, and punctuation that were not noted in checking the note before signing. Inpatient E&M: [id number] [facility] Hosp L2
[2019-05-21] MEDS: 0.9% Saline Lock 10 ML Syringe IV (09:48)
[2019-05-21] MEDS: Aspirin E.C. 81 MG Tablet PO (09:49)
[2019-05-21] MEDS: Gabapentin 300 MG Capsule PO ×2 (09:49→21:25)
[2019-05-21] MEDS: Finasteride 5 MG Tablet PO (09:49)
[2019-05-21] MEDS: predniSONE 20 MG Tablet 40 MG PO (09:49)
[2019-05-21] MEDS: Enoxaparin 40 MG/0.4 ML Syringe SC (09:49)
[2019-05-21] MEDS: Escitalopram Oxalate 20 MG Tablet PO (09:49)
[2019-05-21 11:20] LABS: Bedside Glucose 136 mg/dL (70-110)
--- NOTE | 2019-05-21 14:27 | PN_ITS ---
Patient Problems: Active and Suspected Problems Accidental heroin overdose (Acute) Hypoxemia (Acute) Aspiration of gastric contents (Acute) Acute respiratory failure with hypoxia (Acute) KAYLEIGH (acute kidney injury) (Acute) Hypokalemia (Acute) Hyperglycemia (Acute) Subjective: Patient was seen and examined today, he does not complain of any shortness of breath or chest discomfort, he continues to appear sleepy. Patient has been afebrile, his oxygen requirement has remained at 4 L via nasal cannula. I talked to the patient briefly again today about his living situation-he maintains that he will have a place to live when he is discharged from the hospital, he plans on moving on to a trailer with his friend. I told him that m ost likely he will need oxygen set up at home and that he will probably be stable for discharge tomorrow unless his medical condition worsens. I have decided to keep him on his present antibiotic coverage until he is seen by infectious diseases tomorrow. Objective: General: Alert, Oriented x3, Cooperative, No apparent distress, Well developed HEENT: Atraumatic, PERRLA, EOMI, Normocephalic Oral: Moist Mucosa Neck: Supple, No JVD, Negative Carotid Bruits, Trachea Midline, Thyroid Normal Size and Texture Lungs: Clear to auscultation, Normal air movement, No rhonchi, No wheeze Cardiovascular: Regular rate, Regular Rhythm, Normal S1, Normal S2, No murmurs, PMI Normal, No rub noted, No Gallop Abdomen: Bowel Sounds Present, Soft, Non Tender, Non-Distended, No hernias noted Extremities: No clubbing, No cyanosis, No edema, Capillary Refill Less than 3 Seconds Skin: No rashes, No breakdown Musculoskeletal: No Tenderness to Palpation of Joints or Extremities Neurological: Cranial nerves II-XII grossly intact, Neuro grossly intact, Sensory exam intact to light touch and pain, Coordination normal Psych/Mental Status: Normal Affect, Appropriate, Alert and oriented to time, place, person, mood and affect - Physical Exam Vitals/I&O's: Vital Signs Temp Pulse Resp BP Pulse Ox 99.3 F H 74 18 154/89 H 92 05/21/19 09:45 05/21/19 11:44 05/21/19 11:44 05/21/19 09:45 05/21/19 11:44 Oxygen Flow Rate (L/min) 4 Oxygen Delivery Method Nasal Cannula Weight: 113.1 kg Body Mass Index (BMI) 34.1 Intake and Output for Last 24 Hours 05/19/19 05/20/19 05/21/19 23:59 23:59 23:59 Intake Total 2085 / 2085 1590 / 1590 1210 / 1210 Output Total 2700 / 2700 0 / 0 475 / 475 Balance -615 / -615 1590 / 1590 735 / 735 Microbiology Past 72 Hours 05/18/19 06:30 Sputum, Expectorated/Coughed Gram Stain - Final 05/18/19 06:30 Sputum, Expectorated/Coughed Respiratory Culture - Final Meth. resistant Staph. aureus Haemophilus influenzae 05/18/19 10:35 Mucosa - Nasopharyngeal Respiratory Panel (PCR) - Final Laboratory Results 05/20/19 16:30: POC Glucose 165 H 05/20/19 21:00: POC Glucose 194 H 05/21/19 06:41: POC Glucose 99 05/21/19 11:08: POC Glucose 136 H Current Medications Acetaminophen (Tylenol) 650 mg PO Q6H PRN PRN PRN Reason: Pain Score 1-10/Temp > 100.7 F Last Admin: 05/21/19 08:35 Dose: 650 mg Documented by: Albuterol Sulfate (Ventolin Aerosols) 2.5 mg INHALATION Q2H PRN PRN PRN Reason: SOB/Wheezing Albuterol/Ipratropium (Duoneb) 3 ml INHALATION Q4HWA.RT [facility] Last Admin: 05/21/19 11:43 Dose: 3 ml Documented by: Aspirin (Ecotrin) 81 mg PO DAILY [facility] Last Admin: 05/21/19 09:49 Dose: 81 mg Documented by: Dextrose (D50w Syringe) 0 gm IV X1 PRN; Protocol PRN Reason: Hypoglycemia Enoxaparin Sodium (Lovenox) 40 mg SC DAILY [facility] Last Admin: 05/21/19 09:49 Dose: 40 mg Documented by: Escitalopram Oxalate (Lexapro) 20 mg PO DAILY [facility] Last Admin: 05/21/19 09:49 Dose: 20 mg Documented by: Finasteride (Proscar) 5 mg PO DAILY [facility] Last Admin: 05/21/19 09:49 Dose: 5 mg Documented by: Gabapentin (Neurontin) 300 mg PO BID [facility] Last Admin: 05/21/19 09:49 Dose: 300 mg Documented by: Glucagon () 1 mg IM .X1 PRN PRN Reason: Hypoglycemia Guaifenesin (Robitussin) 10 ml PO Q4H PRN PRN PRN Reason: COUGH Sodium Chloride () 250 mls @ 15 mls/hr IV .[id number] PRN PRN Reason: Saline Flush Sodium Chloride () 250 mls @ 15 mls/hr IV .[id number] PRN PRN Reason: Additional IVPB Infusion Vancomycin IV Pharmacy to Dose (1 ea/ Sodium Chloride) 500 mls @ 250 mls/hr IV X1 PRN; Protocol PRN Reason: Rx to Dose Ceftriaxone Sodium 2 gm/ (Sodium Chloride) 50 mls @ 100 mls/hr IV Q24 [facility] Last Infusion: 05/21/19 10:19 Dose: Infused Documented by: Vancomycin HCl 1,500 mg/ (Sodium Chloride) 530 mls @ 250 mls/hr IV Q12H [facility] Last Admin: 05/21/19 12:11 Dose: 250 mls/hr Documented by: Insulin Human Lispro (Humalog Kwikpen (Bkc)) 0 unit SC ACHS [facility]; Protocol Last Admin: 05/21/19 11:09 Dose: Not Given Documented by: Ondansetron HCl (Zofran) 4 mg IV Q8H PRN PRN PRN Reason: NAUSEA/VOMITING Pravastatin Sodium (Pravachol) 40 mg PO QHS [facility] Last Admin: 05/20/19 21:17 Dose: 40 mg Documented by: Prednisone () 40 mg PO DAILY@0800 [facility] Last Admin: 05/21/19 09:49 Dose: 40 mg Documented by: Sodium Chloride () 10 - 40 ml IV UD PRN PRN Reason: SALINE FLUSH Last Admin: 05/21/19 09:48 Dose: 10 ml Documented by: Medical Necessity - Tobacco Use Smoking Status: Former smoker Tobacco Use: Non-smoker Assessment/Plan All Active Problems Accidental heroin overdose (Acute) Hypoxemia (Acute) Aspiration of gastric contents (Acute) Acute respiratory failure with hypoxia (Acute) KAYLEIGH (acute kidney injury) (Acute) Hypokalemia (Acute) Hyperglycemia (Acute) #1 acute heroin overdose-patient is alert and appropriate at this time #2 hypoxic respiratory failure secondary to #1-patient is currently on nasal cannula O2 at this time, it is my opinion that the patient will need home O2 set up if he goes home tomorrow. #3 aspiration pneumonia-patient's sputum culture resulted positive for MRSA and Haemophilus-factious diseases will decide what antibiotic coverage the patient will need when he is discharged, I suspect that if the patient remains stable he will be able to be discharged tomorrow #4 acute kidney injury-creatinine is normal today #5 polysubstance abuse #6 hepatitis B core antibody positive-patient will need follow-up as an outpatient concerning additional testing Inpatient E&M: 95078 Subs Hosp L2
[2019-05-21] MEDS: Insulin Lispro 100 UNIT/ML INSULN.PEN SC ×2 (16:34→21:29)
[2019-05-21 17:06] LABS: Bedside Glucose 189 mg/dL (70-110)
[2019-05-21 19:36] LABS: Bedside Glucose 224 mg/dL (70-110)
[2019-05-21] MEDS: Pravastatin 40 MG Tablet PO (21:25)
[2019-05-21 22:15] LABS: Bedside Glucose 164 mg/dL (70-110)
[2019-05-22] VITALS (9 sets, daily range): BP systolic 134–166; BP diastolic 76–93; PULSE 66–89; RESP 14–19; TEMP 36.6–37.1; O2SAT 87–96
--- NOTE | 2019-05-22 02:28 | NURSING ---
Vancomycin late and not given at this time, waiting for lab results on vanc. trough. Lab had to wait for blood to clot per Melo.
[2019-05-22 02:39] LABS: Vancomycin, Trough Level 12.5 ug/mL (5.0-15.0)
--- NOTE | 2019-05-22 04:14 | PCM.RX.CS ---
Consult Pharmacy has been consulted to manage selected antiobiotic: Vancomycin Type of Consult: Follow-up Labs: Sodium 139 mmol/L (136-145) 05/19/19 11:40 Potassium 4.1 mmol/L (3.5-5.1) 05/19/19 11:40 Chloride 104 mmol/L (98-107) 05/19/19 11:40 Carbon Dioxide 31.0 mmol/L (21.0-32.0) 05/19/19 11:40 Anion Gap 4 (5-15) L 05/19/19 11:40 BUN 22 mg/dL (7-18) H 05/19/19 11:40 Creatinine 1.06 mg/dL (0.70-1.30) 05/19/19 11:40 Est GFR (MDRD) Af Amer 90 mL/min (>60) 05/19/19 11:40 Est GFR (MDRD) Non-Af 74 mL/min (>60) 05/19/19 11:40 BUN/Creatinine Ratio 20.8 RATIO (10-20) H 05/19/19 11:40 Glucose 118 mg/dL (74-106) H 05/19/19 11:40 Vancomycin Trough 12.5 ug/mL (5.0-15.0) 05/22/19 00:30 Microbiology: Microbiology 05/18/19 06:30 Sputum, Expectorated/Coughed Gram Stain - Final 05/18/19 06:30 Sputum, Expectorated/Coughed Respiratory Culture - Final Meth. resistant Staph. aureus Haemophilus influenzae 05/18/19 10:35 Mucosa - Nasopharyngeal Respiratory Panel (PCR) - Final Weight used for dosin kg Goal Trough: 15-20 mcg/mL Pharmacy Plan for Drug Dosing: Trough below goal. Increase to 2000mg IV q12h and recheck prior to 4th dose. Pharmacy Service will continue to monitor and adjust dosing as required. Follow-Up Labs: Trough Vancomycin - 05/22 @ 0217
[2019-05-22] MEDS: 0.9% Saline Lock 10 ML Syringe IV (06:13)
--- NOTE | 2019-05-22 06:18 | NURSING ---
Tried to wean pt. down to 2L O2 NC. from 4L, p ox 86%. 89% on 3L. Placed pt. back on 4L O2 NC.
[2019-05-22 06:36] LABS: Bedside Glucose 99 mg/dL (70-110)
[2019-05-22] MEDS: Ipratropium/Albuterol Sulfate 3 ML AMPUL.NEB INHALATION ×2 (07:20→10:22)
[2019-05-22 08:53] LABS: Absolute Lymphocyte Count 0.77 X10^3/uL (0.83-4.51); Absolute Neutrophil Count 6.5 X10^3/uL (2.0-7.7); Basophil# 0.05 X10^3/uL; Basophil% 0.6 % (0-1); Eosinophil# 0.19 X10^3/uL; Eosinophils% 2.2 % (0-5); Hemoglobin 12.8 g/dL (13.0-16.5); Lymphocyte # 0.77 X10^3/ul (4.0); Lymphocyte % 8.9 % (19-41); Mean Corp Hgb Conc 31.2 g/dL (32-36); Mean Corpuscular Hgb 29.4 pg (27.0-32.0); Mean Platelet Vol. 11.3 fl (6.2-12.0); Monocyte# 1.06 X10^3/uL; Monocyte% 12.3 % (0-10); NRBC Flagged by Analyzer 0 % (0-5); Neutrophil # 6.48 X10^3/uL (2.7-7.7); Platelet Count 195 K/mm3 (150-450); RBC Distribution Width CV 13.9 % (11.6-14.6); RBC Distribution Width SD 48.3 fl (35.1-43.9); Red Blood Count 4.36 M/mm3 (4.6-6.2); White Blood Count 8.6 K/mm3 (4.4-11.0)
[2019-05-22] MEDS: predniSONE 20 MG Tablet 40 MG PO (08:58)
[2019-05-22] MEDS: Aspirin E.C. 81 MG Tablet PO (08:58)
[2019-05-22] MEDS: Enoxaparin 40 MG/0.4 ML Syringe SC (08:58)
[2019-05-22] MEDS: Gabapentin 300 MG Capsule PO (08:58)
[2019-05-22] MEDS: Finasteride 5 MG Tablet PO (08:59)
[2019-05-22] MEDS: Escitalopram Oxalate 20 MG Tablet PO (09:01)
[2019-05-22 09:20] LABS: ALB/GLOB Ratio 0.8 RATIO (0.9-2.4); AST(SGOT) 12 U/L (15-37); Alanine Aminotransfer ALT/SGPT 18 U/L (16-61); Albumin, Serum 2.9 g/dL (3.2-5.0); Alkaline Phosphatase 49 U/L (45-117); Anion Gap 4 (5-15); BUN 19 mg/dL (7-18); BUN/Creat Ratio 20.8 RATIO (10-20); Calcium,Total 9.2 mg/dL (8.5-10.1); Chloride 104 mmol/L (98-107); Creatinine, Serum 0.92 mg/dL (0.70-1.30); EST Glomerular Filtration Rate 88 mL/min (>60); Est Glom Filt Rate - Afr Amer 107 mL/min (>60); Estimated Creatinine Clearance 85.26 ml/min; Globulin 3.6 g/dL (2.2-4.2); Glucose 183 mg/dL (74-106); Potassium 3.6 mmol/L (3.5-5.1); Protein, Total 6.5 g/dL (6.4-8.2); Sodium Level 139 mmol/L (136-145)
[2019-05-22] MEDS: Insulin Lispro 100 UNIT/ML INSULN.PEN SC (11:08)
[2019-05-22 11:11] LABS: Bedside Glucose 166 mg/dL (70-110)
--- NOTE | 2019-05-22 14:14 | CASEMGMT ---
Addendum entered by Toshia James 05/22/19 16:03: Discharge summary faxed at this time and oxygen tank delivered by [facility]. Anastasia RN GALINA Addendum entered by Toshia James 05/22/19 15:47: Call back from Danuta, pt's friend, and she gives this RN CM pt's updated address at this time. Address updated in [employer] and new facesheet faxed to [facility] at this time. This RN CM will fax discharge summary once obtained. Danuta asks for pt's RN to call her when pt ready for discharge and Jonathan BHAGAT updated at this time, voices understanding. Anastasia BHAGAT CM Original Note: Per pt, he will be moving into a mobile home provided by [employer] at discharge and he states that his roommate, Danuta, already moved in and will be picking him up to take them there at discharge. Pt does qualify for 4 liters continous at discharge and states he would like [facility] for this at this time. Referral faxed to [facility] at this time and [facility]. Pt states he does not know new address yet as he has not been there and states to call Danuta, roommate, for this information at this time. Danuta's contact info on chart: [phone]. This RN CM attempted to call her without success at this time but did leave message for her to call this RN CM back when able to verify new address. This RN CM will update chart and [facility] when obtained. Pt states no further questions/concerns/needs at this time. Pt declines need for further therapy at this time. Anastasia BHAGAT CM
--- NOTE | 2019-05-22 14:16 | DCINST_ITS ---
- Discharge Diagnoses Current Active Problems: Current Active and Chronic Problems Accidental heroin overdose (Acute) Hypoxemia (Acute) Aspiration of gastric contents (Acute) Acute respiratory failure with hypoxia (Acute) KAYLEIGH (acute kidney injury) (Acute) Hypokalemia (Acute) Hyperglycemia (Acute) Chronic pain syndrome (Chronic) Former tobacco use (Chronic) Polysubstance abuse (Chronic) Reason(s) for Visit for Discharge Instructions: Pneumonia, drug overdose You will use the following diet at home:: Calorie/Carbohydrate Controlled (specify 1200, 1400, etc) - 1800 calories, Cardiac Your food should be the consistency of: Regular Your liquids should be the consistency of: Regular/Thin Discharge Activity: Return to Normal Activity Instructions: ED Overdose Opiate, What Is Pneumonia?, Using Oxygen at Home, Treating Pneumonia Additional Instructions: Complete his antibiotics. Continue to use your oxygen all the time. Do not smoke whilst on oxygen. Follow-up with your primary care doctor and pulmonology within 2 weeks. Allergies/Adverse Reactions: Allergies Penicillins [PCN] Allergy (Verified 05/17/19 18:33) Rash Medications to take at Discharge Gabapentin [Neurontin] 300 mg PO BID 04/22/19 Aspirin [Aspir 81] 81 mg PO 05/18/19 Escitalopram Oxalate [Lexapro] 20 mg PO DAILY 05/18/19 Finasteride 5 mg PO 05/18/19 Pravastatin [Pravachol] 40 mg PO QHS 05/18/19 Valsartan-Hctz 320-25 mg Tab PO DAILY 05/18/19 Acetaminophen [Tylenol Tablet] 650 mg PO Q6H PRN PRN tablet 05/22/19 Cefdinir [Omnicef [equiv]] 300 mg PO Q12 #6 cap 05/22/19 Doxycycline 100 mg PO BID #6 cap 05/22/19 Guaifenesin [Robitussin] 10 ml PO Q4H PRN PRN #1 bottle 05/22/19 The following prescriptions were given: Doxycycline 100 mg PO BID #6 cap Transmission Status: [facility] to [id number] Cefdinir [Omnicef [equiv]] 300 mg PO Q12 #6 cap Transmission Status: [id number] Guaifenesin [Robitussin] 10 ml PO Q4H PRN PRN #1 bottle PRN Reason: COUGH Transmission Status: [id number] Primary Care Physician: Hector Head DO [Primary Care Provider] - Please follow up with your Primary Care Physician in: within 1-2 weeks Test Results: Test results from this visit will be discussed in further detail at your follow- up appointment, if applicable. Please Follow Up With: Raymundo Holley DO When: within 2 weeks Proposed Discharge Date: 05/22/19
--- NOTE | 2019-05-22 14:20 | PCM.DC.SUM ---
Discharge Date and Diagnosis - Problem List Patient Problems: Active and Suspected Problems Accidental heroin overdose (Acute) Hypoxemia (Acute) Aspiration of gastric contents (Acute) Acute respiratory failure with hypoxia (Acute) KAYLEIGH (acute kidney injury) (Acute) Hypokalemia (Acute) Hyperglycemia (Acute) Date of Admission: 05/17/19 Date of Discharge: 05/22/19 - Primary Discharge Diagnosis Active and Suspected Problems Acute hypoxic respiratory failure Accidental heroin overdose (Acute) Aspiration of gastric contents (Acute) Aspiration pneumonia Acute kidney injury Hypokalemia (Acute) - Secondary Discharge Diagnosis Chronic Problems Chronic pain syndrome (Chronic) Former tobacco use (Chronic) Polysubstance abuse (Chronic) Hospital Course and Treatment Imaging Results: Clinical Impression(s) from Imaging Studies Chest X-Ray 05/17/19 18:55 IMPRESSION: Normal x-ray examination of the chest. Electronically Signed: Francois Orellana DO at 19:47 EDT Tel [phone], Service support , Chest X-Ray 05/18/19 05:55 IMPRESSION: Increasing bilateral basilar patchy airspace disease and/or atelectasis. Electronically Signed: Avril Brambila MD at 5:17 EDT , Service support , Chest CTA 05/18/19 07:43 IMPRESSION: Patchy infiltrate in the posterior segment of the right upper lobe abutting the fissure. Minimal increased markings at the lung bases slightly worse on the right side with blunting of both costophrenic angles. Electronically Signed: Artemio Jarvis, at 9:43 EDT , Service support , ID Critical care/pulmonology Operations: None Procedures: None Summary of Care Provided: The patient is a 63 year old M with past medical history of chronic pain syndrome, polysubstance use, who presented to the ED on 05/17/19 having recently snorted heroine prior to eating a sandwich. He apparently lost consciousness whilst eating the sandwich. Paramedics were called. Patient received 4 mg of Narcan intranasally. He was brought to the emergency room. His management was acute hypoxic respiratory failure secondary to aspiration pneumonitis/pneumonia. He was also found to have acute kidney injury with a creatinine of 2.06. His prior baseline creatinine was 1.0. His urine tox was positive for amphetamines. His respiratory panel was negative. Sputum cultures grew MRSA and Haemophilus influenzae. ID and pulmonology were consulted. His creatinine came back to normal with IV fluids. He was managed on IV antibiotics and switched to oral omnicef and doxycycline for 3 more days. Patient's hepatitis profile came back positive for Hep C and Hep B core Total Ab positive. Patient will need to follow-up with this in the outpatient. He was also evaluated for oxygen as he was persistently on 4L. He qualified for home oxygen at discharge; on 4L oxygen. He will need to follow-up with pulmonology within 1-2 weeks. Patient Problems: Active and Suspected Problems Accidental heroin overdose (Acute) Hypoxemia (Acute) Aspiration of gastric contents (Acute) Acute respiratory failure with hypoxia (Acute) KAYLEIGH (acute kidney injury) (Acute) Hypokalemia (Acute) Hyperglycemia (Acute) Subjective: On the day of discharge, patient was seen and examined. He denied any fever or chills. He feels improved. Remains on 4 L of oxygen. - Physical Exam Vitals/I&O's: Vital Signs Temp Pulse Resp BP Pulse Ox 98.8 F 79 19 H 138/78 H 92 05/22/19 08:54 05/22/19 10:22 05/22/19 10:22 05/22/19 08:54 05/22/19 13:54 Oxygen Flow Rate (L/min) [ 4 AMBULATION with Oxygen] Oxygen Flow Rate (L/min) 4 Oxygen Delivery Method Nasal Cannula Weight: 112 kg Body Mass Index (BMI) 34.1 Intake and Output for Last 24 Hours 05/20/19 05/21/19 05/22/19 23:59 23:59 23:59 Intake Total 1590 / 1590 2490 / 2490 1580 / 1580 Output Total 0 / 0 1325 / 1325 Balance 1590 / 1590 1165 / 1165 1580 / 1580 General: Alert, Oriented x3, Cooperative, No apparent distress, - - on 4L oxygen HEENT: Atraumatic, PERRLA, EOMI, Normocephalic Oral: Moist Mucosa Neck: Supple Lungs: Clear to auscultation, Normal air movement Cardiovascular: Regular rate, Regular Rhythm, Normal S1, Normal S2, No murmurs Abdomen: Bowel Sounds Present, Soft, Non Tender, Non-Distended, No Hepato-splenomegaly Extremities: No edema Skin: No rashes, No breakdown Musculoskeletal: No Tenderness to Palpation of Joints or Extremities Lymphatic: No Cervical, Supraclavicular, or Inguinal Adenopathy Neurological: Cranial nerves II-XII grossly intact, Neuro grossly intact Psych/Mental Status: Normal Affect, Appropriate Microbiology Past 72 Hours 05/18/19 06:30 Sputum, Expectorated/Coughed Gram Stain - Final 05/18/19 06:30 Sputum, Expectorated/Coughed Respiratory Culture - Final Meth. resistant Staph. aureus Haemophilus influenzae Laboratory Results 05/21/19 16:32: POC Glucose 189 H 05/21/19 19:33: POC Glucose 224 H 05/21/19 21:28: POC Glucose 164 H 05/22/19 00:30: Vancomycin Trough 12.5 05/22/19 06:30: POC Glucose 99 05/22/19 08:35: WBC 8.6, RBC 4.36 L, Hgb 12.8 L, Hct 41.0, MCV 94.0, MCH 29.4, MCHC 31.2 L, RDW Std Deviation 48.3 H, RDW Coeff of Julianne 13.9, Plt Count 195, MPV 11.3, Immature Gran % (Auto) 1.000 H, Neut % (Auto) 75.0 H, Lymph % (Auto) 8.9 L, [place] % (Auto) 12.3 H, Eos % (Auto) 2.2, Baso % (Auto) 0.6, Absolute Neuts (auto) 6.5, Absolute Lymphs (auto) 0.77 L, Nucleated RBC % 0 05/22/19 08:35: Sodium 139, Potassium 3.6, Chloride 104, Carbon Dioxide 31.0, Anion Gap 4 L, BUN 19 H, Creatinine 0.92, Estim Creat Clear Calc 85.26, Est GFR (MDRD) Af Amer 107, Est GFR (MDRD) Non-Af 88, BUN/Creatinine Ratio 20.8 H, Glucose 183 H, Calcium 9.2, Total Bilirubin 0.30, AST 12 L, ALT 18, Alkaline Phosphatase 49, Total Protein 6.5, Albumin 2.9 L, Globulin 3.6, Albumin/Globulin Ratio 0.8 L 05/22/19 11:07: POC Glucose 166 H Current Medications Acetaminophen (Tylenol) 650 mg PO Q6H PRN PRN PRN Reason: Pain Score 1-10/Temp > 100.7 F Last Admin: 05/21/19 15:25 Dose: 650 mg Documented by: Albuterol Sulfate (Ventolin Aerosols) 2.5 mg INHALATION Q2H PRN PRN PRN Reason: SOB/Wheezing Albuterol/Ipratropium (Duoneb) 3 ml INHALATION Q4HWA.RT JAYLYN Last Admin: 05/22/19 10:22 Dose: 3 ml Documented by: Aspirin (Ecotrin) 81 mg PO DAILY [facility] [place] Last Admin: 05/22/19 08:58 Dose: 81 mg Documented by: Cefdinir (Omnicef [Equiv]) 300 mg PO Q12 [facility] [place] Dextrose (D50w Syringe) 0 gm IV X1 PRN; Protocol PRN Reason: Hypoglycemia Doxycycline Monohydrate (Doxycycline) 100 mg PO BID [facility] [place] Enoxaparin Sodium (Lovenox) 40 mg SC DAILY [facility] [place] Last Admin: 05/22/19 08:58 Dose: 40 mg Documented by: Escitalopram Oxalate (Lexapro) 20 mg PO DAILY [facility] [place] Last Admin: 05/22/19 09:01 Dose: 20 mg Documented by: Finasteride (Proscar) 5 mg PO DAILY [facility] Last Admin: 05/22/19 08:59 Dose: 5 mg Documented by: Gabapentin (Neurontin) 300 mg PO BID [facility] [place] Last Admin: 05/22/19 08:58 Dose: 300 mg Documented by: Glucagon () 1 mg IM .X1 PRN PRN Reason: Hypoglycemia Guaifenesin (Robitussin) 10 ml PO Q4H PRN PRN PRN Reason: COUGH Sodium Chloride () 250 mls @ 15 mls/hr IV .[id number] PRN PRN Reason: Saline Flush Last Infusion: 05/22/19 06:24 Dose: 15 mls/hr Documented by: Sodium Chloride () 250 mls @ 15 mls/hr IV .[id number] PRN PRN Reason: Additional IVPB Infusion Insulin Human Lispro (Humalog Kwikpen (Bkc)) 0 unit SC ACHS [facility] [place]; Protocol Last Admin: 05/22/19 11:08 Dose: 1 units Documented by: Ondansetron HCl (Zofran) 4 mg IV Q8H PRN PRN PRN Reason: NAUSEA/VOMITING Pravastatin Sodium (Pravachol) 40 mg PO QHS [facility] [place] Last Admin: 05/21/19 21:25 Dose: 40 mg Documented by: Prednisone () 40 mg PO DAILY@0800 [facility] Last Admin: 05/22/19 08:58 Dose: 40 mg Documented by: Sodium Chloride () 10 - 40 ml IV UD PRN PRN Reason: SALINE FLUSH Last Admin: 05/22/19 06:13 Dose: 20 ml Documented by: Discharge Diet: Low fat/ Low Cholesterol, 2000 mg Sodium Diet, Carb Control Diet Discharge Activity: Return to Normal Activity Home Medications: Medications to take at Discharge Gabapentin [Neurontin] 300 mg PO BID 04/22/19 Aspirin [Aspir 81] 81 mg PO 05/18/19 Escitalopram Oxalate [Lexapro] 20 mg PO DAILY 05/18/19 Finasteride 5 mg PO 05/18/19 Pravastatin [Pravachol] 40 mg PO QHS 05/18/19 Valsartan-Hctz 320-25 mg Tab PO DAILY 05/18/19 Acetaminophen [Tylenol Tablet] 650 mg PO Q6H PRN PRN tab 05/22/19 Cefdinir [Omnicef [equiv]] 300 mg PO Q12 #6 cap 05/22/19 Doxycycline 100 mg PO BID #6 cap 05/22/19 Guaifenesin [Robitussin] 10 ml PO Q4H PRN PRN #1 bottle 05/22/19 Following Prescrptions Were Given to Patient: Doxycycline 100 mg PO BID #6 cap Transmission Status: [id number] Cefdinir [Omnicef [equiv]] 300 mg PO Q12 #6 cap Transmission Status: Received by [id number] Guaifenesin [Robitussin] 10 ml PO Q4H PRN PRN #1 bottle PRN Reason: COUGH Transmission Status: Re[facility] by [id number] Primary Care Physician: Hector Head DO [Primary Care Provider] - Please follow up with your Primary Care Physician in: within 1-2 weeks Please Follow Up With: Brown,Raymundo, DO When: within 2 weeks Patient Instructions: What Is Pneumonia?, Using Oxygen at Home, Treating Pneumonia, ED Overdose Opiate Disposition: Home Minutes spent on discharge:: 40 Patient Condition:: Stable Medical Necessity - Tobacco Use Smoking Status: Former smoker Tobacco Use: Non-smoker Meaningful Use Info Meaningful Use Diagnoses (Choose all that apply): None applicable Inpatient E&M: 65285 Disch Hosp
--- NOTE | 2019-05-22 14:28 | PCA ---
Spoke with Rose Marie at 's office to schedule follow up apt, she asked that we have the patient call to schedule because they are trying to do telehealth only and the patient would need to download an thor if they are able.
--- NOTE | 2019-05-22 14:41 | PN_ITS ---
Patient Problems: Active and Suspected Problems Accidental heroin overdose (Acute) Hypoxemia (Acute) Aspiration of gastric contents (Acute) Acute respiratory failure with hypoxia (Acute) KAYLEIGH (acute kidney injury) (Acute) Hypokalemia (Acute) Hyperglycemia (Acute) Subjective: Patient did okay overnight. No acute issues were reported. Patient is still requiring 4 L nasal cannula to maintain saturations, but states that he feels that he is improving. Patient does have a cough that is intermittently productive. - Physical Exam Vitals/I&O's: Vital Signs Temp Pulse Resp BP Pulse Ox 37.1 C 79 19 H 138/78 H 92 05/22/19 08:54 05/22/19 10:22 05/22/19 10:22 05/22/19 08:54 05/22/19 13:54 Oxygen Flow Rate (L/min) [ 4 AMBULATION with Oxygen] Oxygen Flow Rate (L/min) 4 Oxygen Delivery Method Nasal Cannula Weight: 112 kg Body Mass Index (BMI) 34.1 Intake and Output for Last 24 Hours 05/20/19 05/21/19 05/22/19 23:59 23:59 23:59 Intake Total 1590 / 1590 2490 / 2490 1703.75 / 1703.75 Output Total 0 / 0 1325 / 1325 Balance 1590 / 1590 1165 / 1165 1703.75 / 1703.75 General: Alert, Oriented x3, Cooperative, No apparent distress, - - Obese. Patient was sleeping on my arrival and did have apneas HEENT: Atraumatic, PERRLA, EOMI, Normocephalic, - - Slight scleral injection without icterus. 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 Oral: Moist Mucosa, No Gingival or Mucosal Lesions/ Ulcerations Neck: Supple, No JVD, No Nodes, Trachea Midline Lungs: No rhonchi, No wheeze, No rales, Diminished Cardiovascular: Regular rate, Regular Rhythm, Normal S1, Normal S2, No murmurs, No rub noted, No Gallop Abdomen: Bowel Sounds Present, Soft, Non Tender, Non-Distended Extremities: No clubbing, No cyanosis, No edema Skin: No rashes, No breakdown Musculoskeletal: No Tenderness to Palpation of Joints or Extremities Lymphatic: No Cervical, Supraclavicular, or Inguinal Adenopathy Neurological: Cranial nerves II-XII grossly intact, Neuro grossly intact, Motor Exam 5/5 strength throughout Psych/Mental Status: Normal Affect, Appropriate Microbiology Past 72 Hours 05/18/19 06:30 Sputum, Expectorated/Coughed Gram Stain - Final 05/18/19 06:30 Sputum, Expectorated/Coughed Respiratory Culture - Final Meth. resistant Staph. aureus Haemophilus influenzae Laboratory Results 05/21/19 16:32: POC Glucose 189 H 05/21/19 19:33: POC Glucose 224 H 05/21/19 21:28: POC Glucose 164 H 05/22/19 00:30: Vancomycin Trough 12.5 05/22/19 06:30: POC Glucose 99 05/22/19 08:35: WBC 8.6, RBC 4.36 L, Hgb 12.8 L, Hct 41.0, MCV 94.0, MCH 29.4, MCHC 31.2 L, RDW Std Deviation 48.3 H, RDW Coeff of Julianne 13.9, Plt Count 195, MPV 11.3, Immature Gran % (Auto) 1.000 H, Neut % (Auto) 75.0 H, Lymph % (Auto) 8.9 L , [place] % (Auto) 12.3 H, Eos % (Auto) 2.2, Baso % (Auto) 0.6, Absolute Neuts (auto) 6.5, Absolute Lymphs (auto) 0.77 L, Nucleated RBC % 0 05/22/19 08:35: Sodium 139, Potassium 3.6, Chloride 104, Carbon Dioxide 31.0, Anion Gap 4 L, BUN 19 H, Creatinine 0.92, Estim Creat Clear Calc 85.26, Est GFR (MDRD) Af Amer 107, Est GFR (MDRD) Non-Af 88, BUN/Creatinine Ratio 20.8 H, Glucose 183 H, Calcium 9.2, Total Bilirubin 0.30, AST 12 L, ALT 18, Alkaline Phosphatase 49, Total Protein 6.5, Albumin 2.9 L, Globulin 3.6, Albumin/Globulin Ratio 0.8 L 05/22/19 11:07: POC Glucose 166 H Current Medications Acetaminophen (Tylenol) 650 mg PO Q6H PRN PRN PRN Reason: Pain Score 1-10/Temp > 100.7 F Last Admin: 05/21/19 15:25 Dose: 650 mg Documented by: Albuterol Sulfate (Ventolin Aerosols) 2.5 mg INHALATION Q2H PRN PRN PRN Reason: SOB/Wheezing Albuterol/Ipratropium (Duoneb) 3 ml INHALATION Q4HWA.RT [facility] Last Admin: 05/22/19 10:22 Dose: 3 ml Documented by: Aspirin (Ecotrin) 81 mg PO DAILY [facility] Last Admin: 05/22/19 08:58 Dose: 81 mg Documented by: Cefdinir (Omnicef [Equiv]) 300 mg PO Q12 [facility] Dextrose (D50w Syringe) 0 gm IV X1 PRN; Protocol PRN Reason: Hypoglycemia Doxycycline Monohydrate (Doxycycline) 100 mg PO BID [facility] Enoxaparin Sodium (Lovenox) 40 mg SC DAILY [facility] Last Admin: 05/22/19 08:58 Dose: 40 mg Documented by: Escitalopram Oxalate (Lexapro) 20 mg PO DAILY [facility] Last Admin: 05/22/19 09:01 Dose: 20 mg Documented by: Finasteride (Proscar) 5 mg PO DAILY [facility] Last Admin: 05/22/19 08:59 Dose: 5 mg Documented by: Gabapentin (Neurontin) 300 mg PO BID [facility] Last Admin: 05/22/19 08:58 Dose: 300 mg Documented by: Glucagon () 1 mg IM .X1 PRN PRN Reason: Hypoglycemia Guaifenesin (Robitussin) 10 ml PO Q4H PRN PRN PRN Reason: COUGH Sodium Chloride () 250 mls @ 15 mls/hr IV .[id number] PRN PRN Reason: Saline Flush Last Infusion: 05/22/19 14:39 Dose: 0 mls/hr Documented by: Sodium Chloride () 250 mls @ 15 mls/hr IV .[id number] PRN PRN Reason: Additional IVPB Infusion Insulin Human Lispro (Humalog Kwikpen (Bkc)) 0 unit SC ACHS [facility]; Protocol Last Admin: 05/22/19 11:08 Dose: 1 units Documented by: Ondansetron HCl (Zofran) 4 mg IV Q8H PRN PRN PRN Reason: NAUSEA/VOMITING Pravastatin Sodium (Pravachol) 40 mg PO QHS [facility] Last Admin: 05/21/19 21:25 Dose: 40 mg Documented by: Prednisone () 40 mg PO DAILY@0800 [facility] Last Admin: 05/22/19 08:58 Dose: 40 mg Documented by: Sodium Chloride () 10 - 40 ml IV UD PRN PRN Reason: SALINE FLUSH Last Admin: 05/22/19 06:13 Dose: 20 ml Documented by: Medical Necessity - Tobacco Use Smoking Status: Former smoker Tobacco Use: Non-smoker Assessment/Plan All Active Problems Accidental heroin overdose (Acute) Hypoxemia (Acute) Aspiration of gastric contents (Acute) Acute respiratory failure with hypoxia (Acute) KAYLEIGH (acute kidney injury) (Acute) Hypokalemia (Acute) Hyperglycemia (Acute) RECOMMENDATIONS: 1. Continue empiric antimicrobials, per infectious diseases recommendations. 2. Continue bronchodilators and prednisone. Wean prednisone over the next 12 to 14 days 3. Wean supplemental oxygen to maintain saturations at or above 90%. Encourage compliance with supplemental oxygen on discharge 4. Encourage BiPAP utilization with naps and nightly. 5. Encourage incentive spirometer use and mobilize patient as tolerated. IMPRESSIONS: 1. Acute hypoxemic respiratory failure Concern for pneumonia, based upon findings noted on CTA chest. The patient appears to be improving from a respiratory perspective on empiric antimicrobials and supplemental oxygen. We will wean his oxygen to maintain saturations at or above 90%. Prednisone can be weaned over the next 12 to 14 days. Patient can follow-up with a virtual visit at the pulmonary office in 2 to 3 weeks. Will likely need a repeat walking oximetry and complete PFT as an outpatient. 2. Acute kidney injury Improved. Likely prerenal in etiology. Creatinine improved with s upplemental IV fluid hydration. Continue to monitor urine output. No current indication for renal replacement therapy. 3. Polysubstance abuse history Continue current supportive measures as noted above. 4. Chronic pain syndrome/obesity/tobacco dependency, now in remission/self- reported obstructive sleep apnea Complicates care, management, recovery and prognosis. Continue home medications as indicated. Recommend empiric utilization of BiPAP therapy with naps and nightly. This can be initiated in earnest after a sleep study as an outpatient. Inpatient E&M: 66147 [facility] Hosp L2
--- NOTE | 2019-05-22 15:03 | PN.ID_ITS ---
Patient Problems: Active and Suspected Problems Accidental heroin overdose (Acute) Hypoxemia (Acute) Aspiration of gastric contents (Acute) Acute respiratory failure with hypoxia (Acute) KAYLEIGH (acute kidney injury) (Acute) Hypokalemia (Acute) Hyperglycemia (Acute) Subjective: Feeling better, no fever, breathing improved - Physical Exam Vitals/I&O's: Vital Signs Temp Pulse Resp BP Pulse Ox 98.8 F 79 19 H 138/78 H 92 05/22/19 08:54 05/22/19 10:22 05/22/19 10:22 05/22/19 08:54 05/22/19 13:54 Oxygen Flow Rate (L/min) [ 4 AMBULATION with Oxygen] Oxygen Flow Rate (L/min) 4 Oxygen Delivery Method Nasal Cannula Weight: 112 kg Body Mass Index (BMI) 34.1 Intake and Output for Last 24 Hours 05/20/19 05/21/19 05/22/19 23:59 23:59 23:59 Intake Total 1590 / 1590 2490 / 2490 1703.75 / 1703.75 Output Total 0 / 0 1325 / 1325 Balance 1590 / 1590 1165 / 1165 1703.75 / 1703.75 General: Alert, Cooperative, No apparent distress Lungs: Clear to auscultation, Normal air movement Cardiovascular: Regular rate, Regular Rhythm Abdomen: Soft, Non Tender, Non-Distended Skin: No rashes Microbiology Past 72 Hours 05/18/19 06:30 Sputum, Expectorated/Coughed Gram Stain - Final 05/18/19 06:30 Sputum, Expectorated/Coughed Respiratory Culture - Final Meth. resistant Staph. aureus Haemophilus influenzae Laboratory Results 05/21/19 16:32: POC Glucose 189 H 05/21/19 19:33: POC Glucose 224 H 05/21/19 21:28: POC Glucose 164 H 05/22/19 00:30: Vancomycin Trough 12.5 05/22/19 06:30: POC Glucose 99 05/22/19 08:35: WBC 8.6, RBC 4.36 L, Hgb 12.8 L, Hct 41.0, MCV 94.0, MCH 29.4, MCHC 31.2 L, RDW Std Deviation 48.3 H, RDW Coeff of Julianne 13.9, Plt Count 195, MPV 11.3, Immature Gran % (Auto) 1.000 H, Neut % (Auto) 75.0 H, Lymph % (Auto) 8.9 L , [place] % (Auto) 12.3 H, Eos % (Auto) 2.2, Baso % (Auto) 0.6, Absolute Neuts (auto) 6.5, Absolute Lymphs (auto) 0.77 L, Nucleated RBC % 0 05/22/19 08:35: Sodium 139, Potassium 3.6, Chloride 104, Carbon Dioxide 31.0, Anion Gap 4 L, BUN 19 H, Creatinine 0.92, Estim Creat Clear Calc 85.26, Est GFR (MDRD) Af Amer 107, Est GFR (MDRD) Non-Af 88, BUN/Creatinine Ratio 20.8 H, Glucose 183 H, Calcium 9.2, Total Bilirubin 0.30, AST 12 L, ALT 18, Alkaline Phosphatase 49, Total Protein 6.5, Albumin 2.9 L, Globulin 3.6, Albumin/Globulin Ratio 0.8 L 05/22/19 11:07: POC Glucose 166 H Current Medications Acetaminophen (Tylenol) 650 mg PO Q6H PRN PRN PRN Reason: Pain Score 1-10/Temp > 100.7 F Last Admin: 05/21/19 15:25 Dose: 650 mg Documented by: Albuterol Sulfate (Ventolin Aerosols) 2.5 mg INHALATION Q2H PRN PRN PRN Reason: SOB/Wheezing Albuterol/Ipratropium (Duoneb) 3 ml INHALATION Q4HWA.RT [facility] Last Admin: 05/22/19 10:22 Dose: 3 ml Documented by: Aspirin (Ecotrin) 81 mg PO DAILY [facility] Last Admin: 05/22/19 08:58 Dose: 81 mg Documented by: Cefdinir (Omnicef [Equiv]) 300 mg PO Q12 [facility] Dextrose (D50w Syringe) 0 gm IV X1 PRN; Protocol PRN Reason: Hypoglycemia Doxycycline Monohydrate (Doxycycline) 100 mg PO BID [facility] Enoxaparin Sodium (Lovenox) 40 mg SC DAILY [facility] Last Admin: 05/22/19 08:58 Dose: 40 mg Documented by: Escitalopram Oxalate (Lexapro) 20 mg PO DAILY [facility] Last Admin: 05/22/19 09:01 Dose: 20 mg Documented by: Finasteride (Proscar) 5 mg PO DAILY [facility] Last Admin: 05/22/19 08:59 Dose: 5 mg Documented by: Gabapentin (Neurontin) 300 mg PO BID [facility] Last Admin: 05/22/19 08:58 Dose: 300 mg Documented by: Glucagon () 1 mg IM .X1 PRN PRN Reason: Hypoglycemia Guaifenesin (Robitussin) 10 ml PO Q4H PRN PRN PRN Reason: COUGH Sodium Chloride () 250 mls @ 15 mls/hr IV .[id number] PRN PRN Reason: Saline Flush Last Infusion: 05/22/19 14:39 Dose: 0 mls/hr Documented by: Sodium Chloride () 250 mls @ 15 mls/hr IV .[id number] PRN PRN Reason: Additional IVPB Infusion Insulin Human Lispro (Humalog Kwikpen (Bkc)) 0 unit SC ACHS [facility]; Protocol Last Admin: 05/22/19 11:08 Dose: 1 units Documented by: Ondansetron HCl (Zofran) 4 mg IV Q8H PRN PRN PRN Reason: NAUSEA/VOMITING Pravastatin Sodium (Pravachol) 40 mg PO QHS [facility] Last Admin: 05/21/19 21:25 Dose: 40 mg Documented by: Prednisone () 40 mg PO DAILY@0800 [facility] Last Admin: 05/22/19 08:58 Dose: 40 mg Documented by: Sodium Chloride () 10 - 40 ml IV UD PRN PRN Reason: SALINE FLUSH Last Admin: 05/22/19 06:13 Dose: 20 ml Documented by: Medical Necessity - Tobacco Use Smoking Status: Former smoker Tobacco Use: Non-smoker Route of nutrition/ use of supplements: [] Nutritional Intake: [] IV Site: [] [place] Catheter: [] - Assessment/Plan Antibiotics: [] Assessment/Plan: [] Active and Suspected Problems Accidental heroin overdose (Acute) Hypoxemia (Acute) Aspiration of gastric contents (Acute) Acute respiratory failure with hypoxia (Acute) KAYLEIGH (acute kidney injury) (Acute) Hypokalemia (Acute) Hyperglycemia (Acute) acute hypoxic resp failure with drug overdose and aspiration pneumonia - sputum cx with MRSA and haemophilus. Ok for d/c home on 3 more days of doxy and omnicef. Will follow as needed
[2019-05-22] MEDS: Doxycycline 100 MG CAPSULE PO (15:09)
[2019-05-22] MEDS: Cefdinir 300 MG Capsule PO (15:09)
--- NOTE | 2019-05-23 14:47 | CASEMGMT ---
RN CM Discharge F/U Phone Call LACE: 13 Strata: 3 Discharge date: 05/22/2019 Call date: 05/23/2019 Call time: [id number] Attempted to reach pt without success at this time, message left for pt to call this RN CM back if/when able. S[place]en RN CM Admission dx: Acute resp failure, aspiration
== END 2019-05-22 16:52 | disposition home or self-care (01) | DRG 917 ==
LOC: ED 21:33 → ICU 21:35 → PCU 05-19 14:57
PROVIDERS: Internal Medicine; Internal Medicine Critical Care Medicine; Internal Medicine Infectious Disease; Admitting Provider Family Medicine; Emergency Provider Emergency Medicine; PCP Preventive Medicine Occupational Medicine; Visit Provider Internal Medicine
DX: T40.1X1A Poisoning by heroin, accidental (unintentional), initial encounter (principal); J96.01 Acute respiratory failure with hypoxia; J69.0 Pneumonitis due to inhalation of food and vomit; N17.9 Acute kidney failure, unspecified; B19.10 Unspecified viral hepatitis B without hepatic coma; T17.818A Gastric contents in other parts of respiratory tract causing other injury, initial encounter; F11.10 Opioid abuse, uncomplicated; G89.4 Chronic pain syndrome; E87.6 Hypokalemia; R55 Syncope and collapse; T17.918A Gastric contents in respiratory tract, part unspecified causing other injury, initial encounter; R73.9 Hyperglycemia, unspecified; E66.9 Obesity, unspecified; B95.62 Methicillin resistant Staphylococcus aureus infection as the cause of diseases classified elsewhere; B96.3 Hemophilus influenzae [H. influenzae] as the cause of diseases classified elsewhere; G62.9 Polyneuropathy, unspecified; F41.9 Anxiety disorder, unspecified; F32.9 Major depressive disorder, single episode, unspecified; G47.33 Obstructive sleep apnea (adult) (pediatric); Z68.34 Body mass index [BMI] 34.0-34.9, adult; Z71.3 Dietary counseling and surveillance; Z87.891 Personal history of nicotine dependence; Z91.19 Patient's noncompliance with other medical treatment and regimen; Z59.0 Homelessness; X58.XXXA Exposure to other specified factors, initial encounter
CPT/HCPCS: 36415; 71045; 71275; 80048; 80053; 80202; 80307; 80320; 82962; 83036; 83605; 83735; 84145; 84484; 85025; 86703; 86704; 86705; 86706; 86708; 86709; 86803; 87070; 87077; 87186; 87205; 87340; 87633; 87641; 93005; 94002; 94003; 94640; 97802; 99251; 99285; J7030; J7040; J7050; Q9967; A4216; G0463; G0480; J0696

== ENCOUNTER → 2019-08-23 09:36 | Outpatient (CLI) | payer MEDICARE, MEDICAID, SELFPAY ==
[2019-05-17 22:13] VITALS: BMI 34.1
--- NOTE | 2019-08-23 09:43 | RAD_ITS ---
STUDY: X-RAY - LUMBAR SPINE REASON FOR EXAM: Male, 64 years old. LOWER BACK PAIN X AWHILE NOW, NO RADIATION DOWN LEGS TECHNIQUE: 5 view(s) of the lumbar spine were obtained. COMPARISON: None FINDINGS: Normal lumbar lordosis. There is no substantial scoliosis. There is a normal alignment of the vertebrae. There is multilevel endplate spondylosis of the lumbar vertebrae. There is multi-level degenerative disc disease with multi-level disc space narrowing. There is no demonstrated fracture. The soft tissue structures are unremarkable. RAD/L/S Spine Min 4 Views IMPRESSION: Degenerative changes of the spine, as detailed above. Electronically Signed: Lennox Burton MD at 18:48 EDT , Service support ,
== END ==
PROVIDERS: PCP Preventive Medicine Occupational Medicine; Referring Provider Chiropractor; Visit Provider Chiropractor
DX: S33.5XXA Sprain of ligaments of lumbar spine, initial encounter (principal)
CPT/HCPCS: 72110

== ENCOUNTER 2020-10-25 16:33 | Inpatient (IN) | payer MEDICARE, MEDICAID, SELFPAY ==
[2020-10-25] VITALS (9 sets, daily range): BP systolic 144–167; BP diastolic 98–125; PULSE 79–89; RESP 16–22; TEMP 36.2–37.2; O2SAT 90–100; BMI 36.9; BMI 36.4
--- NOTE | 2020-10-25 17:13 | EKG12_ITS ---
Test Reason : Blood Pressure : / mmHG Vent. Rate : 076 BPM Atrial Rate : 076 BPM P-R Int : 176 ms QRS Dur : 146 ms QT Int : 418 ms P-R-T Axes : 037 -67 -02 degrees QTc Int : 470 ms Normal sinus rhythm Right bundle branch block Left anterior fascicular block Bifascicular block Abnormal ECG Confirmed by YOVANA MENDOZA, MED ([id number]), manuscript editor LENA LOERNZO ([id number]) on 10/29/2020 1:40:54 PM Referred By: ANNIE Confirmed By:MED YEN MD
--- NOTE | 2020-10-25 17:14 | EDS_ITS ---
HPI History of Present Illness Chief Complaint: Shortness of Breath Informant: patient Narrative Narrative: 65-year-old male presents the emergency room with cough and shortness of breath of 3-day duration. Patient is a poor historian. He notes diarrhea, runny nose, sore throat, sweats, dyspnea dyspnea on exertion cough with occasional sputum production. He states he is a former smoker and that I have bad lungs. Patient did not receive a Covid vaccination. He denies any new medications. Nursing notes the patient ambulating back from triage is 83% on room air he does not wear supplemental oxygen at home. He notes that he has been eating and drinking normally. No change in taste or smell [facility] Medical History (Updated 10/25/20 @ 21:[address] Rajiv Portillo DO) Accidental heroin overdose Acute respiratory failure with hypoxia KAYLEIGH (acute kidney injury) Aspiration of gastric contents Chronic pain syndrome Former tobacco use Hyperglycemia Hypokalemia Hypoxemia Polysubstance abuse Home Medications gabapentin 300 mg PO BID 04/22/19 [History Last Taken Unknown] Valsartan-Hctz 320-25 mg Tab PO DAILY 05/18/19 [History Last Taken Unknown] aspirin 81 mg PO 05/18/19 [History Last Taken Unknown] escitalopram oxalate 20 mg PO DAILY 05/18/19 [History Last Taken Unknown] finasteride 5 mg PO 05/18/19 [History Last Taken Unknown] pravastatin 40 mg PO QHS 05/18/19 [History Last Taken Unknown] acetaminophen 650 mg PO Q6H PRN PRN tab 05/22/19 [Rx Last Taken Unknown] cefdinir 300 mg PO Q12 #6 cap 05/22/19 [Rx Last Taken Unknown] doxycycline monohydrate 100 mg PO BID #6 cap 05/22/19 [Rx Last Taken Unknown] guaifenesin 10 ml PO Q4H PRN PRN #1 bottle 05/22/19 [Rx Last Taken Unknown] Allergy/AdvReac Type Severity Reaction Status Date / Time Penicillins [PCN] Allergy Rash Verified 10/25/20 16:34 Social History (Updated 10/25/20 @ 17:[address] Rajiv Portillo DO) Smoking Status: Former smoker substance use type: former substance user [facility] ED Constitutional Constitutional ED: Reports sweats; Denies chills or weight loss Eyes Eyes: Denies change in vision or diplopia ENT ENT ED: Reports rhinorrhea and sore throat; Denies ear pain Cardiovascular Cardiovascular: Denies chest pain, orthopnea, palpitations or racing heartbeat Respiratory/Chest Respiratory/Chest: Reports cough, dyspnea, dyspnea on exertion and sputum; Denies orthopnea Gastrointestinal Gastrointestinal: Reports diarrhea; Denies abdominal pain, nausea or vomiting Genitourinary Genitourinary ED: Denies dysuria, hematuria or urinary frequency Musculoskeletal Musculoskeletal: Reports myalgias; Denies arthralgias Integumentary Denies abscess or rash Neurologic Neurologic: Reports headache(s); Denies weakness Psychiatric Psychiatric: Denies anxiety, depression, suicidal ideation or suicidal thoughts Endocrine Endocrinology: Denies polydipsia, polyphagia or polyuria Allergic/Immunologic Allergic/Immunologic ED: Denies mouth swelling, tongue swelling or urticaria EXAM Physical Exam Const Vital Signs: 10/25/20 16:34 10/25/20 17:01 10/25/20 17:13 Temperature 99.0 F 99.0 F Temperature Source Oral Oral Pulse Rate 82 82 Respiratory Rate 22 H 22 H Respiratory Pattern Blood Pressure 144/98 H 144/98 H Blood Pressure Mean 113 113 Pulse Ox 90 90 95 Oxygen Delivery Method Room Air Room Air Nasal Cannula Oxygen Flow Rate (L/min) 5 10/25/20 17:30 10/25/20 18:00 10/25/20 19:00 Temperature 97.2 F L 98.5 F Temperature Source Temporal Oral Pulse Rate 89 79 84 Respiratory Rate 20 H 16 16 Respiratory Pattern Normal Blood Pressure 154/98 H 167/107 H Blood Pressure Mean 116 127 Pulse Ox 97 100 Oxygen Delivery Method Nasal Cannula Nasal Cannula Oxygen Flow Rate (L/min) 5 5 10/25/20 20:02 Temperature 98.5 F Temperature Source Oral Pulse Rate 84 Respiratory Rate 18 Respiratory Pattern Blood Pressure 166/125 H Blood Pressure Mean 138 Pulse Ox 98 Oxygen Delivery Method Nasal Cannula Oxygen Flow Rate (L/min) 5 Positive well nourished, well developed and obese General Appearance ED: well developed Nutritional Appearance: obese HEENT Reports normocephalic, head/scalp atraumatic and moist mucous membranes Eyes PERRL and EOMs intact bilaterally Neck no lymphadenopathy, supple and no JVD Resp normal respiratory effort Auscultation: rhonchi and wheezes expiratory wheezes Cardio regular rate, regular rhythm and no murmurs GI normal to inspection, nondistended, normoactive bowel sounds and non-tender Palpation: soft Back/Spine no CVA tenderness and normal ROM Extremity normal to inspection General Extremety ED: Negative for edema General Extremity: Negative for edema Neuro oriented x3 and CN's II-XII intact bilaterally Sensorium / Orientation: alert Motor Exam: strength 5/5 throughout Psych mental status grossly normal Mood & Affect: Negative for depressed or tearful Skin no rashes or lesions noted and no wounds MDM MDM MDM Narrative Medical decision making narrative: Patient received supplemental oxygen. His white count is 5.9. Lactic acid 1.4. Troponin of 11. Rapid Covid was negative as was the Covid PCR. My interpretation of the chest x-ray is no consolidation. Because of the profound hypoxemia and the lack of seeing something definitive to explain the hypoxemia a CTA of the chest was obtained. This demonstrated possible lingular developing pneumonia as well as possible viral pneumonia. Patient received albuterol MDI as well as Solu-Medrol because of the possibility of a developing pneumonia despite his lack of fever and white count went ahead and administered Rocephin and azithromycin. Patient will require admission. Lab Data Attestation: I reviewed the patient's lab results. Labs: Laboratory Results - last 24 hr 10/25/20 10/25/20 10/25/20 17:15 17:15 17:15 WBC 5.9 RBC 5.41 Hgb 16.0 Hct 51.2 MCV 94.6 H MCH 29.6 MCHC 31.3 L RDW Std Deviation 46.8 H RDW Coeff of Julianne 13.3 Plt Count 203 MPV 11.3 Immature Gran % (Auto) 0.300 Neut % (Auto) 62.3 Lymph % (Auto) 20.6 [place] % (Auto) 12.4 H Eos % (Auto) 3.7 Baso % (Auto) 0.7 Absolute Neuts (auto) 3.7 Absolute Lymphs (auto) 1.21 Nucleated RBC % 0 Sodium 138 Potassium 3.6 Chloride 101 Carbon Dioxide 34.0 H Anion Gap 3 L BUN 8 Creatinine 0.95 Estim Creat Clear Calc 75.45 Est GFR (MDRD) Af Amer 101 Est GFR (MDRD) Non-Af 84 BUN/Creatinine Ratio 8.4 L Glucose 122 H Lactic Acid 1.4 Calcium 9.1 Total Bilirubin 0.20 AST 22 ALT 38 Alkaline Phosphatase 55 Troponin I High Sens 11 Total Protein 7.7 Albumin 3.6 Globulin 4.1 Albumin/Globulin Ratio 0.9 COVID-19 (SHAHID) 10/25/20 18:20 WBC RBC Hgb Hct MCV MCH MCHC RDW Std Deviation RDW Coeff of Julianne Plt Count MPV Immature Gran % (Auto) Neut % (Auto) Lymph % (Auto) [place] % (Auto) Eos % (Auto) Baso % (Auto) Absolute Neuts (auto) Absolute Lymphs (auto) Nucleated RBC % Sodium Potassium Chloride Carbon Dioxide Anion Gap BUN Creatinine Estim Creat Clear Calc Est GFR (MDRD) Af Amer Est GFR (MDRD) Non-Af BUN/Creatinine Ratio Glucose Lactic Acid Calcium Total Bilirubin AST ALT Alkaline Phosphatase Troponin I High Sens Total Protein Albumin Globulin Albumin/Globulin Ratio COVID-19 (SHAHID) Not Detected Radiography Diagnostic Testing: Radiology Impression Chest X-Ray 10/25/20 17:17 IMPRESSION: Lower lung interstitial opacities, unclear etiology. Consider CT. For viral pneumonia is in the differential diagnosis. Electronically Signed: Dahlia Andre MD at 18:09 EDT Tel , Service support , Chest CTA 10/25/20 18:30 IMPRESSION: 1. Mild patchy interstitial fibrotic-appearing opacities are present in the bilateral lower lobes and in the lingula. There is however a small lobular area of groundglass edema with interstitial thickening in the posterior aspect of the right lung base suspicious or developing pneumonia. The remaining lung mejia are clear. 2. No demonstrated pulmonary embolism or arterial dissection. Electronically Signed: Demetrius Mendez MD at 20:14 EDT , Service support , EKG Initial EKG: Attestation: I personally reviewed and interpreted this EKG as follows: Comments: Normal sinus rhythm ventricular rate of 76 bpm. Noted right bundle branch block and left anterior fascicular block. Discharge Plan Dx/Rx/DC Orders Clinical Impression: Acute respiratory failure with hypoxia Disposition Disposition: Acute Care Hospital [facility]
--- NOTE | 2020-10-25 17:17 | RAD_ITS ---
STUDY: X-RAY CHEST REASON FOR EXAM: Male, 65 years old. cough TECHNIQUE: Frontal portable view of the chest COMPARISON: 18 May 2019 FINDINGS: There are coarse nodular/linear lower lung opacities. There is no pneumothorax, pulmonary edema or cardiomegaly. There are surgical clips in the left mediastinum related to bypass. RAD/Chest 1 View (Portable) IMPRESSION: Lower lung interstitial opacities, unclear etiology. Consider CT. For viral pneumonia is in the differential diagnosis. Electronically Signed: Dahlia Andre MD at 18:09 EDT Tel , Service support ,
[2020-10-25 17:38] LABS: Absolute Lymphocyte Count 1.21 X10^3/uL (0.83-4.51); Absolute Neutrophil Count 3.7 X10^3/uL (2.0-7.7); Basophil# 0.04 X10^3/uL; Basophil% 0.7 % (0-1); Eosinophil# 0.22 X10^3/uL; Eosinophils% 3.7 % (0-5); Hematocrit 51.2 % (40-54); Lymphocyte # 1.21 X10^3/ul (0.83-4.51); Lymphocyte % 20.6 % (19-41); Mean Corp Hgb Conc 31.3 g/dL (32-36); Mean Corpuscular Hgb 29.6 pg (27.0-32.0); Mean Corpuscular Volume 94.6 fL (80-94); Mean Platelet Vol. 11.3 fl (6.2-12.0); Monocyte# 0.73 X10^3/uL; Monocyte% 12.4 % (0-10); NRBC Flagged by Analyzer 0 % (0-5); Neutrophil # 3.66 X10^3/uL (2.7-7.7); Neutrophil % 62.3 % (47-70); Platelet Count 203 K/mm3 (150-450); RBC Distribution Width CV 13.3 % (11.6-14.6); RBC Distribution Width SD 46.8 fl (35.1-43.9); Red Blood Count 5.41 M/mm3 (4.6-6.2); White Blood Count 5.9 K/mm3 (4.4-11.0)
[2020-10-25 17:51] LABS: ALB/GLOB Ratio 0.9 RATIO (0.9-2.4); AST(SGOT) 22 U/L (15-37); Alanine Aminotransfer ALT/SGPT 38 U/L (16-61); Albumin, Serum 3.6 g/dL (3.2-5.0); Alkaline Phosphatase 55 U/L (45-117); Anion Gap 3 (5-15); BUN 8 mg/dL (7-18); BUN/Creat Ratio 8.4 RATIO (10-20); Calcium,Total 9.1 mg/dL (8.5-10.1); Chloride 101 mmol/L (98-107); Creatinine, Serum 0.95 mg/dL (0.70-1.30); EST Glomerular Filtration Rate 84 mL/min (>60); Est Glom Filt Rate - Afr Amer 101 mL/min (>60); Estimated Creatinine Clearance 75.45 ml/min; Globulin 4.1 g/dL (2.2-4.2); Glucose 122 mg/dL (74-106); Potassium 3.6 mmol/L (3.5-5.1); Protein, Total 7.7 g/dL (6.4-8.2); Sodium Level 138 mmol/L (136-145); Troponin-I HS 11 pg/mL (3.0-78.0)
[2020-10-25 18:00] LABS: Lactic Acid 1.4 mmol/L (0.4-1.9)
--- NOTE | 2020-10-25 18:30 | CT_ITS ---
STUDY: CTA CHEST REASON FOR EXAM: Male, 65 years old. pulmonary embolism RADIATION DOSAGE (If Supplied By Facility): CTDIvol = ( 14.98 ) mGy, DLP = ( 492.99 ) mGycm TECHNIQUE: The examination was performed with the intravenous administration of IV 100mL [id number]-[id number]. Post-processing of the angiographic images was performed, with multiplanar reformation and 3D reconstruction. Individualized dose optimization techniques were used for this CT. COMPARISON: None. FINDINGS: Mild patchy interstitial fibrotic-appearing opacities are present in the bilateral lower lobes and in the lingula. There is however a small lobular area of groundglass edema with interstitial thickening in the posterior aspect of the right lung base suspicious or developing pneumonia. The remaining lung mejia are clear. Normal enhancement of the main pulmonary artery and right and left pulmonary arteries. Normal enhancement of the bilateral peripheral pulmonary arteries. There is no demonstrated pulmonary embolism. Normal thoracic aorta and visualized great vessels. There is no demonstrated aortic dissection. Normal heart and pericardium. Normal mediastinum. Normal hilar regions. Normal visualized trachea and bronchi. The lungs are well expanded. Normal pleura. Normal chest wall structures. There are degenerative changes of thoracic spine. Nodularity of the liver surface with slight subcapsular retraction is compatible with mild cirrhosis. Punctate calcific densities are seen in the left lobe of the liver, question postsurgical clips versus parenchymal calcifications. No mass is seen. The remaining visualized upper abdominal structures are normal. CT/CTA Chest W/WO Contrast IMPRESSION: 1. Mild patchy interstitial fibrotic-appearing opacities are present in the bilateral lower lobes and in the lingula. There is however a small lobular area of groundglass edema with interstitial thickening in the posterior aspect of the right lung base suspicious or developing pneumonia. The remaining lung mejia are clear. 2. No demonstrated pulmonary embolism or arterial dissection. Electronically Signed: Demetrius Mendez MD at 20:14 EDT , Service support ,
[2020-10-25] MEDS: MethylPREDNISolone 125 MG/2 ML Vial IV (21:00)
--- NOTE | 2020-10-25 21:36 | PCM.HP.STD ---
HPI - General General Date of Admission: 10/25/20 Date of Service: 10/25/20 Chief Complaint: sob HPI Narrative JOSE CARLOS HERNANDEZ, is a 65 M with a significant history of polysubstance abuse who presents at the emergency department with 3-day history of progressive worsening shortness of breath. Associated with symptom is some occasional productive cough. He had rhinorrhea and has still resolved. He reports a sore throat and headache. He reported that multiple family members have had pneumonia but none tested positive for Covid. He denies any history of COVID-19 infection. He is unvaccinated for the COVID-19. [facility] Medical History Accidental heroin overdose Acute respiratory failure with hypoxia KAYLEIGH (acute kidney injury) Aspiration of gastric contents Chronic pain syndrome Former tobacco use Hyperglycemia Hypokalemia Hypoxemia Polysubstance abuse Home Medications gabapentin 300 mg PO BID 04/22/19 [History Last Taken Unknown] Valsartan-Hctz 320-25 mg Tab PO DAILY 05/18/19 [History Last Taken Unknown] aspirin 81 mg PO 05/18/19 [History Last Taken Unknown] escitalopram oxalate 20 mg PO DAILY 05/18/19 [History Last Taken Unknown] finasteride 5 mg PO 05/18/19 [History Last Taken Unknown] pravastatin 40 mg PO QHS 05/18/19 [History Last Taken Unknown] acetaminophen 650 mg PO Q6H PRN PRN tab 05/22/19 [Rx Last Taken Unknown] cefdinir 300 mg PO Q12 #6 cap 05/22/19 [Rx Last Taken Unknown] doxycycline monohydrate 100 mg PO BID #6 cap 05/22/19 [Rx Last Taken Unknown] guaifenesin 10 ml PO Q4H PRN PRN #1 bottle 05/22/19 [Rx Last Taken Unknown] Allergy/AdvReac Type Severity Reaction Status Date / Time Penicillins [PCN] Allergy Rash Verified 10/25/20 16:34 Family History (Updated 10/25/20 @ 21:[address] Dany Doherty MD) Other Hypertension Surgical History H/O: knee surgery Social History Smoking Status: Former smoker substance use type: former substance user ROS ROS Narrative Constitutional: Reports chills. Denies anorexia and change in weight Eyes: Denies blurry vision, change in eye color, change in vision, discharge from eye(s), double vision, erythema, eye pain, loss of vision or other HEENT: Reports headache and sore throat. Denies abnormal hearing, dysphagia, ear pain, epistaxis, hearing loss, or other Cardiovascular: Denies chest pain or palpitations. Denies dyspnea on exertion, orthopnea and paroxysmal nocturnal dyspnea Respiratory/Chest: Reports cough. Reports phlegm production. Reports chest rattling. Gastrointestinal: Denies abdominal pain, coffee ground emesis, constipation, diarrhea, dyspepsia, hematemesis, hematochezia, loose stools, melena, nausea, vomiting or other Genitourinary: Denies burning urination, difficulty urinating, dysuria, hematuria, nocturia, urinary frequency, urinary hesitancy, urinary incontinence, urinary urgency or other Musculoskeletal: Reports back pain (chronic). Denies arthralgias, joint pain, joint stiffness, joint swelling, myalgias, neck pain or other Neurologic: Denies abnormal gait, abnormal speech, confusion, disequilibrium, dizziness, focal weakness, headache(s), numbness, paresthesias, seizure-like activity, seizures, syncope, tingling, tremor(s) or other Psychiatric: Denies anxiety, depression, homicidal ideation, suicidal ideation or other Endocrinology: Denies change in body appearance, cold intolerance, excessive sweating, heat intolerance, polydipsia, polyuria or other Hematologic/Lymphatic: Denies anemia, easy bleeding, easy bruising, lymphadenopathy or other Integumentary: Denies rashes Allergic/Immunologic: Denies rhinitis, hives, eczema, asthma or other Vital Signs Vital Signs Vital Signs: 10/25/20 16:34 10/25/20 17:01 10/25/20 17:13 Temperature 99.0 F 99.0 F Temperature Source Oral Oral Pulse Rate 82 82 Respiratory Rate 22 H 22 H Respiratory Pattern Blood Pressure 144/98 H 144/98 H Blood Pressure Mean 113 113 Pulse Ox 90 90 95 Oxygen Delivery Method Room Air Room Air Nasal Cannula Oxygen Flow Rate (L/min) 5 10/25/20 17:30 10/25/20 18:00 10/25/20 19:00 Temperature 97.2 F L 98.5 F Temperature Source Temporal Oral Pulse Rate 89 79 84 Respiratory Rate 20 H 16 16 Respiratory Pattern Normal Blood Pressure 154/98 H 167/107 H Blood Pressure Mean 116 127 Pulse Ox 97 100 Oxygen Delivery Method Nasal Cannula Nasal Cannula Oxygen Flow Rate (L/min) 5 5 10/25/20 20:02 Temperature 98.5 F Temperature Source Oral Pulse Rate 84 Respiratory Rate 18 Respiratory Pattern Blood Pressure 166/125 H Blood Pressure Mean 138 Pulse Ox 98 Oxygen Delivery Method Nasal Cannula Oxygen Flow Rate (L/min) 5 Weight Weight: 113.443 kg Body Mass Index (BMI) 36.9 Physical Exam Narrative Physical exam: General: Well-nourished, well-developed. Head: Normocephalic, atraumatic, no tenderness Eyes: PERRLA, EOMI ENT, no trauma, moist mucous membranes, no rhinorrhea Neck: Nontender, full range of motion, no spinal tenderness, deformities, step-off CVS: Regular rate and rhythm. S1-S2 present. No murmur, gallop or rub. Respiratory : Rhonchi and wheezes. Chest wall nontender. Abdomen: Soft, nontender, nondistended, normal bowel sounds, no masses : Deferred Back: Nontender, no CVA tenderness, no midline spinal tenderness, deformities, step-offs Extremities: Nontender full range of motion, no trauma Skin: Normal color, no trauma, abrasions Neuro: Alert, oriented, cranial nerves II through XII grossly intact. Psychiatry: Normal mood. Normal affect. Not depressed. Not anxious. Results Lab / Micro Data Result Diagrams: 10/25/20 17:15 10/25/20 17:15 Labs: Laboratory Results - last 24 hr 10/25/20 17:15: WBC 5.9, RBC 5.41, Hgb 16.0, Hct 51.2, MCV 94.6 H, MCH 29.6, MCHC 31.3 L, RDW Std Deviation 46.8 H, RDW Coeff of Julianne 13.3, Plt Count 203, MPV 11.3, Immature Gran % (Auto) 0.300, Neut % (Auto) 62.3, Lymph % (Auto) 20.6, [place] % (Auto) 12.4 H, Eos % (Auto) 3.7, Baso % (Auto) 0.7, Absolute Neuts (auto) 3.7, Absolute Lymphs (auto) 1.21, Nucleated RBC % 0 10/25/20 17:15: Sodium 138, Potassium 3.6, Chloride 101, Carbon Dioxide 34.0 H, Anion Gap 3 L, BUN 8, Creatinine 0.95, Estim Creat Clear Calc 75.45, Est GFR (MDRD) Af Amer 101, Est GFR (MDRD) Non-Af 84, BUN/Creatinine Ratio 8.4 L, Glucose 122 H, Calcium 9.1, Total Bilirubin 0.20, AST 22, ALT 38, Alkaline Phosphatase 55, Troponin I High Sens 11, Total Protein 7.7, Albumin 3.6, Globulin 4.1, Albumin/Globulin Ratio 0.9 10/25/20 17:15: Lactic Acid 1.4 10/25/20 18:20: COVID-19 (SHAHID) Not Detected Micro: Microbiology 10/25/20 17:18 Nasal Secretion SARS-CoV-2 Antigen (Rapid) - Final Radiology Impression Chest X-Ray 10/25/20 17:17 IMPRESSION: Lower lung interstitial opacities, unclear etiology. Consider CT. For viral pneumonia is in the differential diagnosis. Electronically Signed: Dahlia Andre MD at 18:09 EDT Tel , Service support , Chest CTA 10/25/20 18:30 IMPRESSION: 1. Mild patchy interstitial fibrotic-appearing opacities are present in the bilateral lower lobes and in the lingula. There is however a small lobular area of groundglass edema with interstitial thickening in the posterior aspect of the right lung base suspicious or developing pneumonia. The remaining lung mejia are clear. 2. No demonstrated pulmonary embolism or arterial dissection. Electronically Signed: Demetrius Mendez MD at 20:14 EDT , Service support , Assessment & Plan Assessment/Plan (1) Respiratory failure with hypoxia: QUALIFIERS: Chronicity: acute Qualified Code(s): J96.01 - Acute respiratory failure with hypoxia (2) Pneumonia: QUALIFIERS: Pneumonia type: due to unspecified organism Laterality: bilateral Lung location: unspecified part of lung Qualified Code(s): J18.9 - Pneumonia, unspecified organism PLAN: Acute hypoxemic respiratory failure secondary to pneumonia Gram-positive, gram-negative, or viral. Radiologist impression of chest x-ray: Lower lung interstitial opacities of unclear etiology. Consider CT. viral pneumonia is in the differential diagnosis. Actual chest x-ray image was independently interpreted and agree with the latest interpretation. Rapid Covid antigen and PCR Covid was negative at emergency department. Agrees with radiologist interpretation of chest CTA. We will get comprehensive respiratory pathogen panel. Will check strep pneumonia antigen and Legionella urine antigen. Will check procalcitonin. Blood cultures was ordered emergency department; follow. Sputum culture ordered. Ceftriaxone and azithromycin was ordered emergency department and continued. Received Solu-Medrol at emergency department and continued. Will place on as needed Tessalon Perles. DuoNeb nebulization [id number]. Albuterol nebulization as needed. CBC reviewed showed normal white counts. Trend CBC. BMP reviewed showed alkalemia. Trend BMP. Chronic back pain K pad ordered. Avoid narcotics secondary to history of drug use. DVT prophylaxis: Subcutaneous Lovenox ordered.
[2020-10-25] MEDS: Ceftriaxone 1 GM/50 ML BAG IV (23:23)
[2020-10-26] VITALS (10 sets, daily range): BP systolic 144–167; BP diastolic 86–98; PULSE 77–107; RESP 16–18; TEMP 36.6–36.8; O2SAT 93–98
[2020-10-26] MEDS: Benzonatate 100 MG Capsule PO (00:59)
[2020-10-26] MEDS: Acetaminophen 325 MG Tablet 650 MG PO ×2 (00:59→08:39)
[2020-10-26] MEDS: 0.9% Saline Lock 10 ML Syringe IV ×4 (01:02→21:18)
[2020-10-26] MEDS: Ipratropium/Albuterol Sulfate 3 ML AMPUL.NEB INHALATION ×3 (07:45→20:25)
[2020-10-26 08:11] LABS: Absolute Lymphocyte Count 0.74 X10^3/uL (0.83-4.51); Absolute Neutrophil Count 7.2 X10^3/uL (2.0-7.7); Basophil# 0.02 X10^3/uL; Basophil% 0.2 % (0-1); Hemoglobin 17.8 g/dL (13.0-16.5); Lymphocyte # 0.74 X10^3/ul (0.83-4.51); Mean Corp Hgb Conc 30.2 g/dL (32-36); Mean Corpuscular Hgb 29.6 pg (27.0-32.0); Mean Platelet Vol. 11.5 fl (6.2-12.0); Monocyte% 2.4 % (0-10); NRBC Flagged by Analyzer 0 % (0-5); Platelet Count 229 K/mm3 (150-450); RBC Distribution Width CV 13.5 % (11.6-14.6); RBC Distribution Width SD 48.8 fl (35.1-43.9); Red Blood Count 6.01 M/mm3 (4.6-6.2); White Blood Count 8.2 K/mm3 (4.4-11.0)
[2020-10-26 08:22] LABS: Hematocrit 58.9 % (40-54)
[2020-10-26] MEDS: Enoxaparin 40 MG/0.4 ML Syringe SC (08:39)
[2020-10-26 08:43] LABS: Anion Gap 4 (5-15); BUN 10 mg/dL (7-18); BUN/Creat Ratio 9.6 RATIO (10-20); Calcium,Total 9.3 mg/dL (8.5-10.1); Chloride 101 mmol/L (98-107); Creatinine, Serum 1.04 mg/dL (0.70-1.30); EST Glomerular Filtration Rate 76 mL/min (>60); Est Glom Filt Rate - Afr Amer 92 mL/min (>60); Estimated Creatinine Clearance 68.92 ml/min; Glucose 193 mg/dL (74-106); Potassium 4.2 mmol/L (3.5-5.1); Sodium Level 135 mmol/L (136-145)
[2020-10-26 08:52] LABS: Procalcitonin < 0.04 ng/mL (0.00-0.09)
--- NOTE | 2020-10-26 12:17 | PCM.PROGNOTE ---
Documented by User: Tracy Khan NP-C 10/26/20 12:47 Subjective Subjective Patient seen and examined. Patient sleepy this morning however able to arouse and answer questions. Patient's continues to require oxygen however patient states that he feels subjectively better. Objective Data Objective Data Vital Signs: Vital Signs Temp Pulse Resp BP Pulse Ox 97.8 F 107 H 16 159/94 H 94 10/26/20 08:30 10/26/20 12:13 10/26/20 12:13 10/26/20 08:30 10/26/20 08:30 Oxygen Flow Rate (L/min) 5 Oxygen Delivery Method Nasal Cannula Weight: 246 lb 11.156 oz Body Mass Index (BMI) 36.4 Intake & Output: Intake and Output for Last 24 Hours 10/24/20 10/25/20 10/26/20 23:59 23:59 23:59 Intake Total 305 / 305 Output Total 700 / 700 Balance 305 / -145 -700 / -700 Lab / Micro Data Result Diagrams: 10/26/20 07:25 10/26/20 07:25 Labs: Laboratory Results - last 24 hr 10/25/20 17:15: WBC 5.9, RBC 5.41, Hgb 16.0, Hct 51.2, MCV 94.6 H, MCH 29.6, MCHC 31.3 L, RDW Std Deviation 46.8 H, RDW Coeff of Julianne 13.3, Plt Count 203, MPV 11.3, Immature Gran % (Auto) 0.300, Neut % (Auto) 62.3, Lymph % (Auto) 20.6, [place] % (Auto) 12.4 H, Eos % (Auto) 3.7, Baso % (Auto) 0.7, Absolute Neuts (auto) 3.7, Absolute Lymphs (auto) 1.21, Nucleated RBC % 0 10/25/20 17:15: Sodium 138, Potassium 3.6, Chloride 101, Carbon Dioxide 34.0 H, Anion Gap 3 L, BUN 8, Creatinine 0.95, Estim Creat Clear Calc 75.45, Est GFR (MDRD) Af Amer 101, Est GFR (MDRD) Non-Af 84, BUN/Creatinine Ratio 8.4 L, Glucose 122 H, Calcium 9.1, Total Bilirubin 0.20, AST 22, ALT 38, Alkaline Phosphatase 55, Troponin I High Sens 11, Total Protein 7.7, Albumin 3.6, Globulin 4.1, Albumin/Globulin Ratio 0.9 10/25/20 17:15: Lactic Acid 1.4 10/25/20 18:20: COVID-19 (SHAHID) Not Detected 10/26/20 07:25: Procalcitonin < 0.04 10/26/20 07:25: WBC 8.2, RBC 6.01, Hgb 17.8 H, Hct 58.9 H, MCV 98.0 H, MCH 29.6, MCHC 30.2 L, RDW Std Deviation 48.8 H, RDW Coeff of Julianne 13.5, Plt Count 229, MPV 11.5, Immature Gran % (Auto) 0.400, Neut % (Auto) 88.0 H, Lymph % (Auto) 9.0 L, [place] % (Auto) 2.4, Eos % (Auto) 0.0, Baso % (Auto) 0.2, Absolute Neuts (auto) 7.2, Absolute Lymphs (auto) 0.74 L, Nucleated RBC % 0 10/26/20 07:25: Sodium 135 L, Potassium 4.2, Chloride 101, Carbon Dioxide 30.0, Anion Gap 4 L, BUN 10, Creatinine 1.04, Estim Creat Clear Calc 68.92, Est GFR (MDRD) Af Amer 92, Est GFR (MDRD) Non-Af 76, BUN/Creatinine Ratio 9.6 L, Glucose 193 H, Calcium 9.3 Micro: Microbiology 10/26/20 00:56 Urine, Clean Catch Legionella Antigen - Final 10/26/20 00:56 Urine, Clean Catch Streptococcus pneumoniae Antigen (M - Final 10/26/20 01:52 Mucosa - Nasopharyngeal Respiratory Panel (PCR) - Final Parainfluenza 3 10/25/20 17:18 Nasal Secretion SARS-CoV-2 Antigen (Rapid) - Final Radiography Diagnostic Testing: Radiology Impression Chest X-Ray 10/25/20 17:17 IMPRESSION: Lower lung interstitial opacities, unclear etiology. Consider CT. For viral pneumonia is in the differential diagnosis. Electronically Signed: Dahlia Andre MD at 18:09 EDT Tel , Service support , Chest CTA 10/25/20 18:30 IMPRESSION: 1. Mild patchy interstitial fibrotic-appearing opacities are present in the bilateral lower lobes and in the lingula. There is however a small lobular area of groundglass edema with interstitial thickening in the posterior aspect of the right lung base suspicious or developing pneumonia. The remaining lung mejia are clear. 2. No demonstrated pulmonary embolism or arterial dissection. Electronically Signed: Demetrius Mendez MD at 20:14 EDT , Service support , Physical Exam Const oriented x3 General Appearance: cooperative Orientation / Consciousness: lethargic HEENT normocephalic and head/scalp atraumatic Eyes conjunctivae normal and no scleral icterus Resp normal respiratory effort and normal air movement Auscultation: wheezes expiratory wheezes and throughout Cardio regular rate, regular rhythm, S1 normal heart sound and S2 normal heart sound Peripheral Pulses: pulses 2+ throughout GI normal to inspection, nondistended, normoactive bowel sounds, soft to palpation and non-tender Extremity normal capillary refill and no clubbing, cyanosis or edema General Extremity: no tenderness to palpation of joints or extremities Skin General Skin Exam: no breakdown and turgor normal Lesions: no lesions Rashes: no rashes Neuro no focal motor deficits and no sensory deficits noted Speech: speech normal Motor Exam: general weakness Psych thought process normal, cooperative and affect normal Appearance: appropriate Assessment & Plan Assessment/Plan (1) Pneumonia: QUALIFIERS: Laterality: bilateral Lung location: unspecified part of lung Pneumonia type: due to unspecified organism Qualified Code(s): J18.9 - Pneumonia, unspecified organism PLAN: 1. Acute respiratory failure with hypoxia secondary to pneumonia -Patient positive for parainfluenza 3 -Procalcitonin less than 0.04 -Covid rapid and PCR negative -CT negative for PE, positive for mild patchy interstitial fibrotic appearing opacities are present in the bilateral lower lobes and in the lingula. Small lobular area of groundglass edema with interstitial thickening in the posterior aspect of the right lung base suspicious for developing pneumonia -Urine Legionella and Streptococcus pneumonia negative -Blood culture pending -Continue nebulizer treatments, steroids. -Will continue antibiotics, blood pressure cultures pending -CBC and bMP ordered for a.m. -Oxygen per protocol, currently on 5 L nasal cannula patient does not wear oxygen at home 2. Hypertension -Vital signs per protocol, currently stable -As needed hydralazine ordered -Once chronic medications are verified we will reorder DVT prophylaxis-subcu Lovenox This patient was seen by SVITLANA HenryC under the supervision of Dr. Hill. Documented by User: Dr. Vinay Hill, 10/26/20 18:23 Objective Data Lab / Micro Data Result Diagrams: 10/26/20 07:25 10/26/20 07:25 Charges/Coding Addendum Addendum: Patient was seen and examined today independently of Stacey Khan, he was admitted yesterday for respiratory failure with hypoxia, his respiratory panel resulted and being positive for. Parainfluenza 3 virus. On examination he appeared older than his stated age. Vital signs as documented. Skin warm and dry and without overt rashes. Neck without JVD, neck was supple, trachea midline, thyroid was normal. Lungs clear bilaterally, decreased air movement was noted bilaterally. Heart exam notable for regular rhythm, normal sounds and absence of murmurs, rubs or gallops. Abdomen unremarkable and without evidence of organomegaly, masses, or abdominal aortic enlargement. Bowel sounds are present, abdomen is not distended. Extremities nonedematous, no cyanosis was noted, no clubbing was noted. Neuro: Cranial nerves II through XII are grossly intact, no focal motor deficits were noted, sensation to light touch and pinprick intact, motor exam 5/5 throughout. Psych: Patient is alert and oriented x3, he does not appear anxious or depressed, he does not appear agitated. Patient is currently on 5 L via nasal cannula , will continue with present treatment. I have reviewed Stacey Khan's progress note including her medical assessment and plan of care and endorse it. Visit Charges Inpatient E&M: 22388 Subs Hosp L2
--- NOTE | 2020-10-26 13:20 | CASEMGMT ---
RN GALINA Face to Face with patient for initial transition planning/care coordination assessment. RN CM introduced self and role at [facility]. Patient lying in bed, alert and oriented. Patient willing to participate in assessment and is able to answer all questions appropriately. Care providers, pharmacy, and demographics verified. Patient wishes to discharge home, denies need for home health at this time. Patient states he has no further needs or concerns at this time. CM to follow for discharge planning needs that may arise. 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 Patient states he is independent at home. Transportation: self/friend DME/HHC: Patient states he has home oxygen concentrator and tank but they are empty. Patient states he doesn't wear home oxygen at home because he doesn't need it. Patient not sure of DME company. Per chart patient was setup previously at 4 lpm through [facility]. Green sheet placed on chart if patient requires additional oxygen and to call for portable tank at discharge. Disposition Plan: Patient to discharge home with family support and follow-up plans in place. Toshia LUND, RN, CM
[2020-10-26] MEDS: levoFLOXacin 500 MG Tablet PO (20:05)
[2020-10-26] MEDS: MELATONIN 3 MG TABLET PO (21:18)
--- NOTE | 2020-10-26 23:54 | PCS.PANDOC ---
PANDEMIC DOCUMENTATION INITIATED: Date: 09/23/2020 Time: 190
[2020-10-27] VITALS (8 sets, daily range): BP systolic 146–160; BP diastolic 86–126; PULSE 78–95; RESP 16–23; TEMP 36.6–37.1; O2SAT 92–95
[2020-10-27] MEDS: 0.9% Saline Lock 10 ML Syringe IV ×3 (05:24→23:19)
[2020-10-27] MEDS: levoFLOXacin 500 MG Tablet PO (05:27)
[2020-10-27 06:25] LABS: Absolute Lymphocyte Count 0.98 X10^3/uL (0.83-4.51); Absolute Neutrophil Count 18.2 X10^3/uL (2.0-7.7); Basophil# 0.02 X10^3/uL; Basophil% 0.1 % (0-1); Hematocrit 50.8 % (40-54); Hemoglobin 15.9 g/dL (13.0-16.5); Lymphocyte # 0.98 X10^3/ul (0.83-4.51); Lymphocyte % 4.8 % (19-41); Mean Corp Hgb Conc 31.3 g/dL (32-36); Mean Corpuscular Hgb 29.6 pg (27.0-32.0); Mean Corpuscular Volume 94.4 fL (80-94); Mean Platelet Vol. 11.8 fl (6.2-12.0); Monocyte# 0.99 X10^3/uL; Monocyte% 4.9 % (0-10); NRBC Flagged by Analyzer 0 % (0-5); Neutrophil # 18.16 X10^3/uL (2.7-7.7); Neutrophil % 89.6 % (47-70); Platelet Count 262 K/mm3 (150-450); RBC Distribution Width CV 13.6 % (11.6-14.6); RBC Distribution Width SD 47.4 fl (35.1-43.9); Red Blood Count 5.38 M/mm3 (4.6-6.2); White Blood Count 20.3 K/mm3 (4.4-11.0)
[2020-10-27 06:53] LABS: Anion Gap 5 (5-15); BUN 21 mg/dL (7-18); Calcium,Total 9.2 mg/dL (8.5-10.1); Chloride 100 mmol/L (98-107); EST Glomerular Filtration Rate 79 mL/min (>60); Est Glom Filt Rate - Afr Amer 96 mL/min (>60); Estimated Creatinine Clearance 71.68 ml/min; Glucose 178 mg/dL (74-106); Potassium 4.2 mmol/L (3.5-5.1); Sodium Level 138 mmol/L (136-145)
[2020-10-27] MEDS: Ipratropium/Albuterol Sulfate 3 ML AMPUL.NEB INHALATION ×3 (07:20→19:08)
[2020-10-27] MEDS: Acetaminophen 325 MG Tablet 650 MG PO ×2 (07:39→23:27)
[2020-10-27] MEDS: Enoxaparin 40 MG/0.4 ML Syringe SC (09:51)
--- NOTE | 2020-10-27 13:07 | PN_ITS ---
Documented by User: Tracy Khan NP-C 10/27/20 13:21 Subjective Subjective Patient seen and examined. Patient states he continues to feel tired, weak, short of breath. Patient oxygen requirements have increased patient currently on 7 L up from 5 L nasal cannula yesterday. Patient complains of body aches, chills. Objective Data Objective Data Vital Signs: Vital Signs Temp Pulse Resp BP Pulse Ox 97.8 F 78 20 H 152/91 H 94 10/27/20 07:44 10/27/20 07:44 10/27/20 07:44 10/27/20 07:44 10/27/20 07:44 Oxygen Flow Rate (L/min) 7 Oxygen Delivery Method Nasal Cannula Weight: 246 lb 11.156 oz Body Mass Index (BMI) 36.4 Intake & Output: Intake and Output for Last 24 Hours 10/25/20 10/26/20 10/27/20 23:59 23:59 23:59 Intake Total 305 / 305 Output Total 700 / 1200 500 / 500 Balance 305 / -145 -700 / -1200 -500 / -500 Lab / Micro Data Result Diagrams: 10/27/20 05:50 10/27/20 05:50 Labs: Laboratory Results - last 24 hr 10/27/20 05:50: WBC 20.3 H, RBC 5.38, Hgb 15.9, Hct 50.8, MCV 94.4 H, MCH 29.6, MCHC 31.3 L, RDW Std Deviation 47.4 H, RDW Coeff of Julianne 13.6, Plt Count 262, MPV 11.8, Immature Gran % (Auto) 0.600, Neut % (Auto) 89.6 H, Lymph % (Auto) 4.8 L, [place] % (Auto) 4.9, Eos % (Auto) 0.0, Baso % (Auto) 0.1, Absolute Neuts (auto) 18.2 H, Absolute Lymphs (auto) 0.98, Nucleated RBC % 0 10/27/20 05:50: Sodium 138, Potassium 4.2, Chloride 100, Carbon Dioxide 33.0 H, Anion Gap 5, BUN 21 H, Creatinine 1.00, Estim Creat Clear Calc 71.68, Est GFR (MDRD) Af Amer 96, Est GFR (MDRD) Non-Af 79, BUN/Creatinine Ratio 21.0 H, Glucose 178 H, Calcium 9.2 Micro: Microbiology 10/26/20 00:56 Urine, Clean Catch Legionella Antigen - Final 10/26/20 00:56 Urine, Clean Catch Streptococcus pneumoniae Antigen (M - Final 10/26/20 01:52 Mucosa - Nasopharyngeal Respiratory Panel (PCR) - Final Parainfluenza 3 10/25/20 17:18 Nasal Secretion SARS-CoV-2 Antigen (Rapid) - Final Physical Exam Const alert, oriented x3 and no apparent distress General Appearance: cooperative Orientation / Consciousness: lethargic HEENT normocephalic and head/scalp atraumatic Eyes conjunctivae normal and no scleral icterus Neck supple and no JVD General: trachea midline Resp normal respiratory effort and normal air movement Effort and Inspection: tachypneic Auscultation: diminished lung sounds Cardio regular rate, regular rhythm, S1 normal heart sound and S2 normal heart sound Peripheral Pulses: pulses 2+ throughout GI normal to inspection, nondistended, normoactive bowel sounds, soft to palpation and non-tender Extremity normal capillary refill and no clubbing, cyanosis or edema General Extremity: no tenderness to palpation of joints or extremities Skin General Skin Exam: no breakdown and turgor normal Lesions: no lesions Rashes: no rashes Neuro no focal motor deficits and no sensory deficits noted Speech: speech normal Motor Exam: general weakness Psych cooperative and affect normal Appearance: appropriate Assessment & Plan Assessment/Plan (1) Respiratory failure with hypoxia: QUALIFIERS: Chronicity: acute Qualified Code(s): J96.01 - Acute respiratory failure with hypoxia (2) Pneumonia: QUALIFIERS: Laterality: bilateral Lung location: unspecified part of lung Pneumonia type: due to unspecified organism Qualified Code(s): J18.9 - Pneumonia, unspecified organism PLAN: 1. Acute respiratory failure with hypoxia secondary to pneumonia -Patient positive for parainfluenza 3 -Procalcitonin less than 0.04 -Covid rapid and PCR negative -CT negative for PE, positive for mild patchy interstitial fibrotic appearing opacities are present in the bilateral lower lobes and in the lingula. Small lobular area of groundglass edema with interstitial thickening in the posterior aspect of the right lung base suspicious for developing pneumonia -Urine Legionella and Streptococcus pneumonia negative -Blood culture pending -Continue nebulizer treatments, steroids. -ceftriaxone and azithromycin discontinued, levaquin ordered. -Oxygen per protocol, currently on 7 L nasal cannula patient does not wear oxygen at home -WBC count elevated today at 20.3 however this may be secondary to initiation of steroids. will obtain CBC daily and trend. 2. Hypertension -Vital signs per protocol, currently stable -As needed hydralazine ordered -Once chronic medications are verified we will reorder DVT prophylaxis-subcu Lovenox This patient was seen by Tracy Khan, YESENIA-C under the supervision of Dr. Hill. Documented by User: Dr. Vinay Hill, 10/27/20 16:31 Objective Data Lab / Micro Data Result Diagrams: 10/27/20 05:50 10/27/20 05:50 Charges/Coding Addendum Addendum: Patient was seen and examined independently of Stacey Khan, he is r equiring supplemental oxygen at 4 L via nasal cannula at the time of this dictation. Patient does not complain of any fevers or chills. Patient's white blood cell count today was elevated but I think this is secondary to his IV Solu-Medrol administration. On examination he appeared in good health and spirits. Vital signs as documented. Skin warm and dry and without overt rashes. Neck without JVD, neck was supple, trachea midline, thyroid was normal. Lungs clear bilaterally, normal air movement was noted. Heart exam notable for regular rhythm, normal sounds and absence of murmurs, rubs or gallops. Abdomen unremarkable and without evidence of organomegaly, masses, or abdominal aortic enlargement. Bowel sounds are present, abdomen is not distended. Extremities nonedematous, no cyanosis was noted, no clubbing was noted. Neuro: Cranial nerves II through XII are grossly intact, no focal motor deficits were noted, sensation to light touch and pinprick intact, motor exam 5/5 throughout. Psych: Patient is alert and oriented x3, he does not appear anxious or depressed, he does not appear agitated. I have reviewed Stacey Khan's progress note including her medical assessment and plan of care and endorse it. Visit Charges Inpatient E&M: 42382 Subs Hosp L2
[2020-10-27] MEDS: Gabapentin 300 MG Capsule PO (23:19)
[2020-10-27] MEDS: MELATONIN 10 MG TABLET PO (23:20)
[2020-10-28] VITALS (8 sets, daily range): BP systolic 107–159; BP diastolic 52–93; PULSE 73–85; RESP 16–21; TEMP 36.4–36.8; O2SAT 92–98
[2020-10-28] MEDS: levoFLOXacin 500 MG Tablet PO (05:44)
[2020-10-28] MEDS: 0.9% Saline Lock 10 ML Syringe IV ×3 (05:44→22:31)
[2020-10-28 06:21] LABS: Absolute Lymphocyte Count 0.72 X10^3/uL (0.83-4.51); Absolute Neutrophil Count 14.7 X10^3/uL (2.0-7.7); Basophil# 0.01 X10^3/uL; Basophil% 0.1 % (0-1); Hemoglobin 15.1 g/dL (13.0-16.5); Lymphocyte # 0.72 X10^3/ul (0.83-4.51); Lymphocyte % 4.4 % (19-41); Mean Corp Hgb Conc 31.5 g/dL (32-36); Mean Corpuscular Hgb 29.7 pg (27.0-32.0); Mean Corpuscular Volume 94.5 fL (80-94); Mean Platelet Vol. 11.6 fl (6.2-12.0); Monocyte# 0.84 X10^3/uL; Monocyte% 5.1 % (0-10); NRBC Flagged by Analyzer 0 % (0-5); Neutrophil % 89.9 % (47-70); Platelet Count 254 K/mm3 (150-450); RBC Distribution Width CV 13.9 % (11.6-14.6); RBC Distribution Width SD 48.2 fl (35.1-43.9); Red Blood Count 5.08 M/mm3 (4.6-6.2); White Blood Count 16.4 K/mm3 (4.4-11.0)
[2020-10-28 06:46] LABS: Anion Gap 3 (5-15); BUN 28 mg/dL (7-18); BUN/Creat Ratio 31.7 RATIO (10-20); Chloride 101 mmol/L (98-107); Creatinine, Serum 0.88 mg/dL (0.70-1.30); EST Glomerular Filtration Rate 91 mL/min (>60); Est Glom Filt Rate - Afr Amer 111 mL/min (>60); Estimated Creatinine Clearance 81.46 ml/min; Glucose 187 mg/dL (74-106); Potassium 4.4 mmol/L (3.5-5.1); Sodium Level 138 mmol/L (136-145)
[2020-10-28] MEDS: Ipratropium/Albuterol Sulfate 3 ML AMPUL.NEB INHALATION ×2 (07:26→18:53)
[2020-10-28] MEDS: Gabapentin 300 MG Capsule PO ×3 (08:05→16:52)
[2020-10-28] MEDS: Enoxaparin 40 MG/0.4 ML Syringe SC (09:24)
--- NOTE | 2020-10-28 10:39 | PN_ITS ---
Documented by User: Tracy Khan NP-C 10/28/20 10:47 Subjective Subjective Patient seen and examined. Patient states that he is feeling better. Patient sitting in bed no distress noted, eating breakfast. Patient denies complaints at this time. Patient currently on 3 L nasal cannula Objective Data Objective Data Vital Signs: Vital Signs Temp Pulse Resp BP Pulse Ox 98.1 F 81 16 153/93 H 97 10/28/20 08:07 10/28/20 08:07 10/28/20 08:07 10/28/20 08:07 10/28/20 08:07 Oxygen Flow Rate (L/min) 3 Oxygen Delivery Method Nasal Cannula Weight: 246 lb 11.156 oz Body Mass Index (BMI) 36.4 Intake & Output: Intake and Output for Last 24 Hours 10/26/20 10/27/20 10/28/20 23:59 23:59 23:59 Output Total 700 / 1200 500 / 500 Balance -700 / -1200 -500 / -500 Lab / Micro Data Result Diagrams: 10/28/20 05:54 10/28/20 05:54 Labs: Laboratory Results - last 24 hr 10/28/20 05:54: WBC 16.4 H, RBC 5.08, Hgb 15.1, Hct 48.0, MCV 94.5 H, MCH 29.7, MCHC 31.5 L, RDW Std Deviation 48.2 H, RDW Coeff of Julianne 13.9, Plt Count 254, MPV 11.6, Immature Gran % (Auto) 0.500, Neut % (Auto) 89.9 H, Lymph % (Auto) 4.4 L, [place] % (Auto) 5.1, Eos % (Auto) 0.0, Baso % (Auto) 0.1, Absolute Neuts (auto) 14.7 H, Absolute Lymphs (auto) 0.72 L, Nucleated RBC % 0 10/28/20 05:54: Sodium 138, Potassium 4.4, Chloride 101, Carbon Dioxide 34.0 H, Anion Gap 3 L, BUN 28 H, Creatinine 0.88, Estim Creat Clear Calc 81.46, Est GFR (MDRD) Af Amer 111, Est GFR (MDRD) Non-Af 91, BUN/Creatinine Ratio 31.7 H, Glucose 187 H, Calcium 9.0 Micro: Microbiology 10/25/20 17:42 Blood Culture (Wb) - Arm Right Blood Culture - Preliminary No growth in 48 hours. 10/25/20 17:15 Blood Culture (Wb) - Anticubital Left Blood Culture - Preliminary No growth in 48 hours. 10/26/20 00:56 Urine, Clean Catch Legionella Antigen - Final 10/26/20 00:56 Urine, Clean Catch Streptococcus pneumoniae Antigen (M - Final 10/26/20 01:52 Mucosa - Nasopharyngeal Respiratory Panel (PCR) - Final Parainfluenza 3 10/25/20 17:18 Nasal Secretion SARS-CoV-2 Antigen (Rapid) - Final Physical Exam Const alert, oriented x3 and no apparent distress General Appearance: cooperative Orientation / Consciousness: lethargic HEENT normocephalic and head/scalp atraumatic Eyes conjunctivae normal and no scleral icterus Neck supple and no JVD General: trachea midline Resp normal respiratory effort and normal air movement Effort and Inspection: tachypneic Auscultation: wheezes expiratory wheezes and throughout and diminished lung sounds Cardio regular rate, regular rhythm, S1 normal heart sound and S2 normal heart sound Peripheral Pulses: pulses 2+ throughout GI normal to inspection, nondistended, normoactive bowel sounds, soft to palpation and non-tender Extremity normal capillary refill and no clubbing, cyanosis or edema General Extremity: no tenderness to palpation of joints or extremities Skin General Skin Exam: no breakdown and turgor normal Lesions: no lesions Rashes: no rashes Neuro no focal motor deficits and no sensory deficits noted Speech: speech normal Motor Exam: general weakness Psych thought process normal, cooperative and affect normal Appearance: appropriate Assessment & Plan Assessment/Plan (1) Respiratory failure with hypoxia: QUALIFIERS: Chronicity: acute Qualified Code(s): J96.01 - Acute respiratory failure with hypoxia (2) Pneumonia: QUALIFIERS: Laterality: bilateral Lung location: unspecified part of lung Pneumonia type: due to unspecified organism Qualified Code(s): J18.9 - Pneumonia, unspecified organism PLAN: 1. Acute respiratory failure with hypoxia secondary to pneumonia -Patient positive for parainfluenza 3, Covid rapid and PCR negative -CT negative for PE, positive for mild patchy interstitial fibrotic appearing opacities are present in the bilateral lower lobes and in the lingula. Small lobular area of groundglass edema with interstitial thickening in the posterior aspect of the right lung base suspicious for developing pneumonia -Urine Legionella and Streptococcus pneumonia negative -Blood culture negative -Continue nebulizer treatments, steroids. -Continue Levaquin -Oxygen per protocol, currently on 3-4 L nasal cannula patient does not wear oxygen at home -WBC count improved, 16.4 today. will obtain CBC daily and trend. 2. Hypertension -Vital signs per protocol, currently stable -As needed hydralazine ordered -Home medication reordered DVT prophylaxis-subcu Lovenox This patient was seen by Tracy Khan, YESENIA-C under the supervision of Dr. Hill. Documented by User: Dr. Vinay Hill, 10/28/20 18:57 Objective Data Lab / Micro Data Result Diagrams: 10/28/20 05:54 10/28/20 05:54 Charges/Coding Addendum Addendum: Patient was seen and examined independently of Stacey Khan today, the patient stated to me today that he supposed to be on oxygen at 4 L/min via nasal cannula at home but he ran out of oxygen and has not been compliant with using it. Case management found that he had given his nasal cannula to a friend and he did not have nasal cannula at his house but he does have a concentrator. Patient is currently on 4 L via nasal cannula at the time of this dictation. On examination he appeared older than his stated age. Vital signs as documented. Skin warm and dry and without overt rashes. Neck without JVD, neck was supple, trachea midline, thyroid was normal. Lungs clear bilaterally, normal air mov ement was noted. Heart exam notable for regular rhythm, normal sounds and absence of murmurs, rubs or gallops. Abdomen unremarkable and without evidence of organomegaly, masses, or abdominal aortic enlargement. Bowel sounds are present, abdomen is not distended. Extremities nonedematous, no cyanosis was noted, no clubbing was noted. Neuro: Cranial nerves II through XII are grossly intact, no focal motor deficits were noted, sensation to light touch and pinprick intact, motor exam 5/5 throughout. Psych: Patient is alert and oriented x3, he does not appear anxious or depressed, he does not appear agitated. Patient will be reevaluated tomorrow, equipment for his home concentrator will be taken out to his house today. I have reviewed Stacey Khan's progress note including her medical assessment and plan of care and endorse it. Visit Charges Inpatient E&M: 91614 Subs Hosp L2
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
--- NOTE | 2020-10-28 12:56 | CASEMGMT ---
Social Work Note SW updated that pt has history of polysubstance abuse. SW reviewed chart, pt with history of meth and Heroin use. SW in to speak with pt. SW introduced self and role at [facility]. Pt is alert and orientated, answers questions appropriately. SW asked pt about substance abuse/use. Pt states he used to use meth but states he stopped two weeks ago. Pt denied any current use. SW offered to provide pt with substance abuse/use resources and pt initially denied stating he knows about the resources. SW asked pt about any Mental Health History. Pt states probably in regards to Anxiety and Depression. Pt denied any history of suicidal thoughts/plans/ideations. Pt denied any current suicidal thoughts/plans/ideations. Pt denied any needs or concerns at this time. As this SW was leaving the room pt asked this worker if I wanted a counselor, how would I go about getting one. SW informed pt that this worker can provide him with counseling resources and if pt decided he wanted an appointment, this worker could arrange an appointment. Pt agreeable to taking counseling resources at this time. SW provided pt with counseling and substance abuse/use resources. Pt denied additional needs or concerns at this time. Toshia Flores SKULL SPLITTER, IRR[employer]ATION [employer]UME [employer]ER
[2020-10-28] MEDS: Pravastatin 40 MG Tablet PO (22:21)
[2020-10-28] MEDS: Acetaminophen 325 MG Tablet 650 MG PO (22:31)
[2020-10-28] MEDS: MELATONIN 10 MG TABLET PO (22:31)
[2020-10-29 02:33] VITALS: BP 156/91; PULSE 75; RESP 18; TEMP 36.9; O2SAT 95
[2020-10-29] MEDS: levoFLOXacin 500 MG Tablet PO (05:35)
[2020-10-29 07:13] VITALS: PULSE 66; RESP 18; O2SAT 94
[2020-10-29] MEDS: Ipratropium/Albuterol Sulfate 3 ML AMPUL.NEB INHALATION (07:13)
[2020-10-29 07:30] LABS: Absolute Lymphocyte Count 0.67 X10^3/uL (0.83-4.51); Absolute Neutrophil Count 8.9 X10^3/uL (2.0-7.7); Basophil# 0.01 X10^3/uL; Basophil% 0.1 % (0-1); Hematocrit 48.5 % (40-54); Hemoglobin 15.3 g/dL (13.0-16.5); Lymphocyte # 0.67 X10^3/ul (0.83-4.51); Lymphocyte % 6.5 % (19-41); Mean Corp Hgb Conc 31.5 g/dL (32-36); Mean Corpuscular Hgb 29.8 pg (27.0-32.0); Mean Corpuscular Volume 94.5 fL (80-94); Mean Platelet Vol. 11.8 fl (6.2-12.0); Monocyte# 0.66 X10^3/uL; Monocyte% 6.4 % (0-10); NRBC Flagged by Analyzer 0 % (0-5); Neutrophil # 8.91 X10^3/uL (2.7-7.7); Neutrophil % 86.4 % (47-70); Platelet Count 225 K/mm3 (150-450); RBC Distribution Width SD 48.9 fl (35.1-43.9); Red Blood Count 5.13 M/mm3 (4.6-6.2); White Blood Count 10.3 K/mm3 (4.4-11.0)
[2020-10-29 07:57] LABS: Anion Gap 4 (5-15); BUN 25 mg/dL (7-18); BUN/Creat Ratio 26.8 RATIO (10-20); Calcium,Total 8.9 mg/dL (8.5-10.1); Chloride 102 mmol/L (98-107); Creatinine, Serum 0.93 mg/dL (0.70-1.30); EST Glomerular Filtration Rate 86 mL/min (>60); Est Glom Filt Rate - Afr Amer 104 mL/min (>60); Estimated Creatinine Clearance 77.08 ml/min; Glucose 192 mg/dL (74-106); Potassium 4.3 mmol/L (3.5-5.1); Sodium Level 139 mmol/L (136-145)
[2020-10-29] MEDS: Losartan Potassium 50 MG Tablet 100 MG PO (08:15)
[2020-10-29] MEDS: Aspirin E.C. 81 MG Tablet PO (08:15)
[2020-10-29] MEDS: Enoxaparin 40 MG/0.4 ML Syringe SC (08:15)
[2020-10-29] MEDS: hydroCHLOROthiazide 25 MG Tablet PO (08:15)
[2020-10-29] MEDS: Finasteride 5 MG Tablet PO (08:15)
[2020-10-29] MEDS: Gabapentin 300 MG Capsule PO ×2 (08:15→11:03)
[2020-10-29 08:17] VITALS: BP 147/98; PULSE 80; RESP 18; TEMP 36.2; O2SAT 95
--- NOTE | 2020-10-29 09:41 | PCM.DC ---
Discharge Instructions Diet Discharge Diet: Low fat / Low cholesterol Activity Discharge Activity: Return to Normal Activity Dressing / Incision Call your doctor if you observe: Shortness of breath, Dizziness and Chest pain Follow Up Care Please Follow Up With: Hector Head DO When: 1 week Test Results: Test results from this visit will be discussed in further detail at your follow-up appointment, if applicable. Discharge Plan Admission Admit Date/Time: 10/25/20 21:27 Primary Reason for Your Visit: Shortness of Breath, Parainfluenza 3 Attending Provider: Vinay Hill Primary Care Provider: Hector Head Instructions Patient Instructions: Treating Pneumonia, The Benefits of Living Smoke Free, Preventing Common Respiratory ... Discharge Orders/Prescriptions Prescriptions: New levofloxacin 500 mg Tablet 500 mg PO 0600 4 Days Qty: 4 RF: 0 prednisone 20 mg tablet 40 mg PO DAILY 5 Days Qty: 10 RF: 0 Continued gabapentin 300 MG capsule 300 mg PO TID RF: 0 pravastatin 40 MG tablet 40 mg PO QHS RF: 0 aspirin 81 MG tablet,delayed release (DR/EC) 81 mg PO DAILY RF: 0 finasteride 5 MG tablet 5 mg PO DAILY RF: 0 escitalopram oxalate 20 MG tablet 20 mg PO DAILY RF: 0 Valsartan-Hctz 320-25 mg Tab PO DAILY RF: 0 acetaminophen 325 MG tablet 650 mg PO Q6H PRN PRN (Reason: Pain Score 1-10/Temp > 100.7 F) RF: 0 guaifenesin 10 ML liquid 10 ml PO Q4H PRN PRN (Reason: COUGH) Qty: 1 RF: 0 Discontinued doxycycline monohydrate 100 MG capsule 100 mg PO BID Qty: 6 RF: 0 cefdinir 300 MG capsule 300 mg PO Q12 Qty: 6 RF: 0 Referrals / Follow Up: Hector Head DO [Primary Care Provider] - Disposition Disposition (needs filled in before D/C Order can be placed): Home, Self Care
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
[2020-10-29 09:50] VITALS: O2SAT 4; O2SAT 5
[2020-10-29 09:51] VITALS: O2SAT 95
--- NOTE | 2020-10-29 10:07 | CASEMGMT ---
Addendum entered by Lindsey Murray 10/29/20 11:46: Faxed updated script to [facility] with DC summary. TC to [facility], spoke with Jie who states she will watch for fax. She is aware that a tank does not need to be delivered to the hospital. Original Note: LEOLA CM in to pt room, pt states his O2 and NC were delivered to his home yesterday. He is aware of his increased O2 need when he is exerting himself. He also is aware to have his family who is picking him up bring in the portable tank to go home on.
--- NOTE | 2020-10-29 13:18 | NURSING ---
pt stated he can't find wallet. nursing searched room, unable to find wallet. no documentation noted that pt had wallet. asked pt if someone took it home on admit and pt stated he came to hospital byself.
--- NOTE | 2020-10-29 13:57 | PHA.DC.MR ---
Pharmacy Service has performed discharge medication reconciliation for this patient. The patient's discharge medication list was reviewed for discrepancies and discrepancies were resolved. Unable to phone counselor before D/C. Home Medications gabapentin 300 mg PO TID 04/22/19 Valsartan-Hctz 320-25 mg Tab PO DAILY 05/18/19 aspirin 81 mg PO DAILY 05/18/19 escitalopram oxalate 20 mg PO DAILY 05/18/19 finasteride 5 mg PO DAILY 05/18/19 pravastatin 40 mg PO QHS 05/18/19 acetaminophen 650 mg PO Q6H PRN PRN tab 05/22/19 guaifenesin 10 ml PO Q4H PRN PRN #1 bottle 05/22/19 levofloxacin 500 mg PO 0600 4 Days #4 tab 10/29/20 prednisone 40 mg PO DAILY 5 Days #10 tab 10/29/20
--- NOTE | 2020-10-31 13:16 | CASEMGMT ---
RN CM Discharge Follow-up Phone Call: CHRISS: John Strata: 3 Call Date: 10/31/20 Discharge Date: 10/29/20 Time of Call: 1315 Admitting Diagnosis: pneumonia This RN CM attempted to contact pt for discharge follow-up. Call went straight to a message stating the voicemail has not been set up yet. Rakel Mcdonald RN CM
== END 2020-10-29 13:33 | disposition home or self-care (01) | DRG 194 ==
LOC: ED 21:16 → MS3 21:53
PROVIDERS: Nurse Practitioner Family; Admitting Provider Hospitalist; Emergency Provider Emergency Medicine; PCP Preventive Medicine Occupational Medicine; Visit Provider Internal Medicine
DX: J12.2 Parainfluenza virus pneumonia (principal); J96.11 Chronic respiratory failure with hypoxia; I10 Essential (primary) hypertension; G89.4 Chronic pain syndrome; R73.9 Hyperglycemia, unspecified; Z79.899 Other long term (current) drug therapy; Z87.891 Personal history of nicotine dependence; Z79.82 Long term (current) use of aspirin; Z28.3 Underimmunization status; Z91.19 Patient's noncompliance with other medical treatment and regimen
CPT/HCPCS: 36415; 71045; 71275; 80048; 80053; 83605; 84145; 84484; 85025; 87040; 87426; 87449; 87633; 87635; 93005; 94640; 94762; 99251; 99285; J7030; J7050; Q9967; U0005; A4216; G0463; U0003

== ENCOUNTER 2021-10-30 11:51 | Emergency (ER) | payer MEDICARE, MEDICAID, SELFPAY ==
[2021-10-30 11:53] VITALS: BP 144/87; PULSE 99; RESP 18; TEMP 36.2; O2SAT 98; BMI 35.4
--- NOTE | 2021-10-30 13:33 | VDLE_ITS ---
Reason For Study: swelling Procedure LEFT This is a venous duplex using B-mode, color GSV is normal. flow and spectral Doppler. CFV is compressible, spontaneous, phasic, Exam performed portable in ED. competent, and demonstrates normal The exam was abbreviated due to the COVID 19 augmentation. protocol. FV is compressible, spontaneous, phasic, The exam was diagnostic. competent and demonstrates normal A preliminary report was called and/or faxed augmentation. to Dr. Haddad. POP V is compressible, spontaneous, phasic, competent and demonstrates normal augmentation. T/P Trunk is compressible. PTV is compressible. LT PerV is compressible. VL/Venous Duplex US, Unilateral Interpretation Summary Deep veins of the left lower extremity are patent and compressible segmentally. There is no evidence of left lower extremity deep vein thrombosis. The left great saphenous vein thor ears patent and compressible segmentally. Ordering Physician: Alejandro Haddad Performed By: Gerber Pollack RVT
--- NOTE | 2021-10-30 13:34 | EKG12_ITS ---
Test Reason : DYSRHYTHMIA Blood Pressure : / mmHG Vent. Rate : 089 BPM Atrial Rate : 096 BPM P-R Int : 000 ms QRS Dur : 138 ms QT Int : 410 ms P-R-T Axes : 000 -50 -19 degrees QTc Int : 498 ms Atrial fibrillation Right bundle branch block Left anterior fascicular block Bifascicular block Abnormal ECG Confirmed by YOVANA MENDOZA, MED ([id number]), market editor MANUELITO HASKINS ([id number]) on 11/03/2021 9:42:58 AM Referred By: CHRISTIAN Confirmed By:MED YEN MD
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
[2021-10-30 13:59] LABS: Absolute Lymphocyte Count 0.88 X10^3/uL (0.83-4.51); Absolute Neutrophil Count 5.5 X10^3/uL (2.0-7.7); Basophil# 0.03 X10^3/uL; Basophil% 0.4 % (0-1); Eosinophil# 0.27 X10^3/uL; Eosinophils% 3.4 % (0-5); Hematocrit 37.9 % (40-54); Hemoglobin 11.6 g/dL (13.0-16.5); Lymphocyte # 0.88 X10^3/ul (0.83-4.51); Lymphocyte % 11.1 % (19-41); Mean Corp Hgb Conc 30.6 g/dL (32-36); Mean Corpuscular Hgb 29.4 pg (27.0-32.0); Mean Corpuscular Volume 96.2 fL (80-94); Mean Platelet Vol. 10.3 fl (6.2-12.0); Monocyte# 1.21 X10^3/uL; Monocyte% 15.3 % (0-10); NRBC Flagged by Analyzer 0 % (0-5); Neutrophil # 5.51 X10^3/uL (2.7-7.7); Neutrophil % 69.4 % (47-70); Platelet Count 299 K/mm3 (150-450); RBC Distribution Width CV 14.5 % (11.6-14.6); RBC Distribution Width SD 50.8 fl (35.1-43.9); Red Blood Count 3.94 M/mm3 (4.6-6.2); White Blood Count 7.9 K/mm3 (4.4-11.0)
[2021-10-30 14:15] LABS: ALB/GLOB Ratio 0.9 RATIO (0.9-2.4); AST(SGOT) 31 U/L (15-37); Alanine Aminotransfer ALT/SGPT 19 U/L (16-61); Albumin, Serum 3.2 g/dL (3.2-5.0); Alkaline Phosphatase 52 U/L (45-117); Anion Gap 4 (5-15); BUN 22 mg/dL (7-18); BUN/Creat Ratio 20.8 RATIO (10-20); Calcium,Total 9.1 mg/dL (8.5-10.1); Chloride 103 mmol/L (98-107); Creatinine, Serum 1.06 mg/dL (0.70-1.30); EST Glomerular Filtration Rate 74 mL/min (>60); Est Glom Filt Rate - Afr Amer 89 mL/min (>60); Globulin 3.6 g/dL (2.2-4.2); Glucose 100 mg/dL (74-106); Potassium 3.9 mmol/L (3.5-5.1); Protein, Total 6.8 g/dL (6.4-8.2); Sodium Level 141 mmol/L (136-145)
[2021-10-30 14:22] LABS: International Normalized Ratio 1.1; Partial Thromboplast Time 30.4 Seconds (24.1-36.2); Prothrombin Time (Protime)PT. 13.9 SECONDS (11.7-14.9)
--- NOTE | 2021-10-30 14:25 | RAD_ITS ---
INDICATION: trauma EXAMINATION/TECHNIQUE: X-RAY - LEFT XR Tibia/Fibula 2 Views 2 VIEWS COMPARISON: None. FINDINGS: SOFT TISSUES: No soft tissue swelling or gas. No radiopaque foreign body. Surgical clips visualized along the medial aspect of the distal tibia. BONES/JOINTS: Unremarkable alignment of the left knee prosthesis, no surrounding lucency is seen. No acute fracture or subluxation.. Remarkable alignment. No sclerotic or destructive changes observed. RAD/Tibia & Fibula 2 Views IMPRESSION: Degenerative changes, no evidence of fracture is seen. Electronically Signed: Sebas Honeycutt MD at 15:09 EDT ,
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
--- NOTE | 2021-10-30 14:25 | RAD_ITS ---
INDICATION: trauma EXAMINATION/TECHNIQUE: X-RAY - LEFT XR Femur Min 2 Views 4 VIEWS COMPARISON: None. FINDINGS: Degenerative bone changes. No evidence of cortical irregularity or lucencies suggest a fracture, no evidence of lytic or sclerotic bone lesion is seen. No abnormal density visualized in the overlying soft tissues. RAD/Femur Min 2 Views IMPRESSION: Degenerative changes, no evidence of fracture is seen. Electronically Signed: Sebas Honeycutt MD at 15:09 EDT ,
[2021-10-30 15:23] VITALS: BP 145/72; PULSE 88; RESP 18; O2SAT 94
== END 2021-10-30 15:24 | disposition home or self-care (01) ==
PROVIDERS: Emergency Provider Emergency Medicine; PCP Preventive Medicine Occupational Medicine; Visit Provider Emergency Medicine
DX: S80.12XA Contusion of left lower leg, initial encounter (principal); S80.822A Blister (nonthermal), left lower leg, initial encounter; I25.10 Atherosclerotic heart disease of native coronary artery without angina pectoris; E78.00 Pure hypercholesterolemia, unspecified; G89.4 Chronic pain syndrome; V18.0XXA Pedal cycle driver injured in noncollision transport accident in nontraffic accident, initial encounter; Z96.659 Presence of unspecified artificial knee joint; Z79.899 Other long term (current) drug therapy; Z87.891 Personal history of nicotine dependence; Z95.1 Presence of aortocoronary bypass graft; Z86.19 Personal history of other infectious and parasitic diseases; Z79.82 Long term (current) use of aspirin
CPT/HCPCS: 72170; 73552; 73590; 80053; 85025; 85610; 85730; 93005; 93971; 99284

== ENCOUNTER 2021-11-03 13:35 | Emergency (ER) | payer MEDICARE, MEDICAID, SELFPAY ==
[2021-11-03 13:37] VITALS: BP 115/92; PULSE 96; RESP 18; TEMP 36.4; O2SAT 90; BMI 35.4
--- NOTE | 2021-11-03 14:30 | EKG12_ITS ---
Test Reason : LOWER EXTREM Blood Pressure : / mmHG Vent. Rate : 091 BPM Atrial Rate : 000 BPM P-R Int : 000 ms QRS Dur : 136 ms QT Int : 386 ms P-R-T Axes : 000 -58 017 degrees QTc Int : 474 ms Atrial fibrillation Right bundle branch block Left anterior fascicular block Bifascicular block Abnormal ECG Confirmed by MEI MENDOZA, GLENN ([id number]), international editorial producer MANUELITO HASKINS ([id number]) on 11/04/2021 1:15:31 PM Referred By: MILADY Confirmed By:GLENN HURLEY MD
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
[2021-11-03 15:13] VITALS: O2SAT 86
[2021-11-03 15:14] VITALS: O2SAT 90
[2021-11-03] MEDS: Clindamycin 600 MG/50 ML BAG 100 MG IV (15:14)
[2021-11-03 15:15] VITALS: O2SAT 95
[2021-11-03 15:18] LABS: Absolute Lymphocyte Count 0.98 X10^3/uL (0.83-4.51); Absolute Neutrophil Count 4.5 X10^3/uL (2.0-7.7); Basophil# 0.03 X10^3/uL; Basophil% 0.4 % (0-1); Eosinophil# 0.42 X10^3/uL; Eosinophils% 5.9 % (0-5); Hematocrit 41.3 % (40-54); Hemoglobin 12.1 g/dL (13.0-16.5); Lymphocyte # 0.98 X10^3/ul (0.83-4.51); Lymphocyte % 13.9 % (19-41); Mean Corp Hgb Conc 29.3 g/dL (32-36); Mean Corpuscular Hgb 29.4 pg (27.0-32.0); Mean Corpuscular Volume 100.2 fL (80-94); Mean Platelet Vol. 10.5 fl (6.2-12.0); Monocyte% 15.6 % (0-10); NRBC Flagged by Analyzer 0 % (0-5); Neutrophil # 4.51 X10^3/uL (2.7-7.7); Neutrophil % 63.8 % (47-70); Platelet Count 291 K/mm3 (150-450); RBC Distribution Width CV 15.1 % (11.6-14.6); RBC Distribution Width SD 55.7 fl (35.1-43.9); Red Blood Count 4.12 M/mm3 (4.6-6.2); White Blood Count 7.1 K/mm3 (4.4-11.0)
[2021-11-03 15:29] LABS: International Normalized Ratio 1.1; Partial Thromboplast Time 28.7 Seconds (24.1-36.2); Prothrombin Time (Protime)PT. 13.4 SECONDS (11.7-14.9)
[2021-11-03 15:36] LABS: ALB/GLOB Ratio 0.9 RATIO (0.9-2.4); AST(SGOT) 20 U/L (15-37); Alanine Aminotransfer ALT/SGPT 22 U/L (16-61); Albumin, Serum 3.3 g/dL (3.2-5.0); Alkaline Phosphatase 66 U/L (45-117); Anion Gap 3 (5-15); BUN 13 mg/dL (7-18); Calcium,Total 9.1 mg/dL (8.5-10.1); Chloride 104 mmol/L (98-107); Creatinine, Serum 0.93 mg/dL (0.70-1.30); EST Glomerular Filtration Rate 86 mL/min (>60); Est Glom Filt Rate - Afr Amer 104 mL/min (>60); Estimated Creatinine Clearance 76.02 ml/min; Globulin 3.6 g/dL (2.2-4.2); Glucose 109 mg/dL (74-106); Potassium 4.5 mmol/L (3.5-5.1); Protein, Total 6.9 g/dL (6.4-8.2); Sodium Level 143 mmol/L (136-145)
[2021-11-03 15:41] LABS: Lactic Acid 1.2 mmol/L (0.4-1.9)
--- NOTE | 2021-11-03 16:00 | RAD_ITS ---
EXAM: XR LEFT FOOT COMPLETE, 3 OR MORE VIEWS CLINICAL INDICATION: Pain TECHNIQUE: Frontal, lateral and oblique views of the left foot. This report was created using [employer] report [employer] technology. COMPARISON: None. FINDINGS: BONES/JOINTS: There is an enthesophyte involving the posterior superior calcaneus at the site of insertion of the Achilles tendon. There is a calcaneal spur. No acute fracture. No subluxation. Normal alignment. Preservation of the joint space. No sclerotic or destructive changes observed. SOFT TISSUES: Unremarkable. No soft tissue swelling or gas. No radiopaque foreign body. RAD/Foot min 3 Views IMPRESSION: There is an enthesophyte involving the posterior superior calcaneus at the site of insertion of the Achilles tendon. There is a calcaneal spur. Electronically Signed: Sergio Avery MD at 16:41 EDT ,
--- NOTE | 2021-11-03 16:00 | RAD_ITS ---
EXAM: XR LEFT TIBIA AND FIBULA, 2 VIEWS CLINICAL INDICATION: pain, trauma TECHNIQUE: Frontal and lateral views of the left tibia and fibula. This report was created using [employer] report generation technology. COMPARISON: None. FINDINGS: BONES/JOINTS: Total left knee arthroplasty. No acute fracture. No subluxation. Normal alignment. No sclerotic or destructive changes observed. SOFT TISSUES: Unremarkable. No soft tissue swelling or gas. No radiopaque foreign body. RAD/Tibia & Fibula 2 Views IMPRESSION: No acute findings in the left tibia and fibula or surrounding soft tissues. Electronically Signed: Sergio Avery MD at 16:44 EDT ,
[2021-11-03] MEDS: Gabapentin 600 MG Tablet PO (16:23)
--- NOTE | 2021-11-03 16:31 | ED.RN ---
DR ROQUE CANCELLED SECOND BLOOD CULTURES.
[2021-11-03 16:32] VITALS: BP 140/91; PULSE 82; RESP 20; TEMP 36.4; O2SAT 91
[2021-11-03 17:45] VITALS: BP 148/99; PULSE 88; RESP 16; O2SAT 99
== END 2021-11-03 17:46 | disposition home or self-care (01) ==
PROVIDERS: Emergency Provider Emergency Medicine; PCP Preventive Medicine Occupational Medicine; Visit Provider Emergency Medicine
DX: L08.9 Local infection of the skin and subcutaneous tissue, unspecified (principal); M79.605 Pain in left leg; I25.10 Atherosclerotic heart disease of native coronary artery without angina pectoris; Z87.891 Personal history of nicotine dependence
CPT/HCPCS: 73590; 73630; 80053; 83605; 85025; 85610; 85730; 87040; 93005; 96365; 99285

== ENCOUNTER 2022-05-18 11:56 | Inpatient (IN) | payer MEDICARE, MEDICAID, SELFPAY ==
[2022-05-18] VITALS (18 sets, daily range): BP systolic 86–200; BP diastolic 60–187; PULSE 67–96; RESP 11–26; TEMP 36.4–37.4; O2SAT 82–95; BMI 35.1; BMI 35.4
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
[2022-05-18 12:34] LABS: Absolute Lymphocyte Count 0.39 X10^3/uL (0.83-4.51); Absolute Neutrophil Count 12.5 X10^3/uL (2.0-7.7); Basophil# 0.05 X10^3/uL; Basophil% 0.3 % (0-1); Eosinophil# 0.03 X10^3/uL; Eosinophils% 0.2 % (0-5); Hematocrit 44.5 % (40-54); Hemoglobin 13.6 g/dL (13.0-16.5); Lymphocyte # 0.39 X10^3/ul (0.83-4.51); Lymphocyte % 2.7 % (19-41); Mean Corp Hgb Conc 30.6 g/dL (32-36); Mean Corpuscular Hgb 28.9 pg (27.0-32.0); Mean Corpuscular Volume 94.7 fL (80-94); Mean Platelet Vol. 12.6 fl (6.2-12.0); Monocyte% 10.9 % (0-10); NRBC Flagged by Analyzer 0 % (0-5); Neutrophil # 12.46 X10^3/uL (2.7-7.7); Neutrophil % 85.3 % (47-70); POSITIVE DIFFERENTIAL YES; Platelet Count 191 K/mm3 (150-450); RBC Distribution Width CV 14.8 % (11.6-14.6); RBC Distribution Width SD 51.7 fl (35.1-43.9); White Blood Count 14.6 K/mm3 (4.4-11.0)
[2022-05-18 12:36] LABS: Differential Indicated SCAN CRITERIA MET
[2022-05-18] MEDS: MethylPREDNISolone 125 MG/2 ML Vial IV (12:41)
[2022-05-18 12:54] LABS: Carboxyhemoglobin Frac (CO) 2.8 % (0.0-1.5)
[2022-05-18 12:56] LABS: Anion Gap 5 (5-15); BUN 35 mg/dL (7-18); Calcium,Total 8.9 mg/dL (8.5-10.1); Chloride 106 mmol/L (98-107); Creatinine, Serum 1.84 mg/dL (0.70-1.30); EST Glomerular Filtration Rate 39 mL/min (>60); Est Glom Filt Rate - Afr Amer 47 mL/min (>60); Estimated Creatinine Clearance 38.42 ml/min; Glucose 135 mg/dL (74-106); Potassium 3.9 mmol/L (3.5-5.1); Sodium Level 140 mmol/L (136-145); Troponin-I HS 12 pg/mL (3.0-78.0)
[2022-05-18 13:05] LABS: Blood Gas Specimen Type VEN; VBG BASE EXCESS 4 mmol/L (-1.0-3.5); VBG Bicarbonate 30 mmol/L (22-26); VBG PO2 55 mmHg (25-40); VBG SO2 83 % (50-70); VBG TCO2 32 mmol/L (23-33); VBG pH 7.29 (7.32-7.42)
[2022-05-18 13:07] LABS: BNP,B-Type NATRIURETIC PEPTIDE 266.2 pg/mL (0-100)
[2022-05-18] MEDS: Ipratropium/Albuterol Sulfate 3 ML AMPUL.NEB INHALATION ×2 (13:12→23:46)
--- NOTE | 2022-05-18 13:45 | RAD_ITS ---
STUDY: X-RAY CHEST REASON FOR EXAM: Male, 66 years old. Shortness of breath. TECHNIQUE: Frontal and lateral views of the chest. COMPARISON: October 2020. FINDINGS: Interval development of dense opacities in the right upper lobe and right lower lobe. Patchy opacity in the left lower lobe. Small bilateral effusions. Stable cardiomegaly. RAD/Chest PA and Lateral IMPRESSION: Cardiomegaly with interval development of patchy right upper lobe and right lower lobe opacities compatible with early/developing pneumonia. Follow-up chest imaging to resolution recommended. Electronically Signed: Greg Means, at 14:25 EDT ,
--- NOTE | 2022-05-18 14:40 | CT_ITS ---
INDICATION: pneumonia, hypoxia EXAMINATION: CT CHEST WITHOUT CONTRAST - CT Chest W/O Contrast Injection TECHNIQUE: Helically acquired images were obtained of the chest. A radiation dose optimization technique was used for this scan. IV Contrast dosage and agent: None. COMPARISON: None. FINDINGS: LUNGS, PLEURA AND LARGE AIRWAYS: Bilateral infiltrates, right more than left. No pleural effusion or thickening. No pneumothorax. THYROID: No thyroid lesions. HEART AND PERICARDIUM: Heart size is normal. No pericardial effusion. CORONARY ARTERIES: Coronary artery calcifications are noted VESSELS: Prominent ascending aorta measuring 4.4 cm. MEDIASTINUM AND LETA: No mediastinal or hilar adenopathy. Esophagus is unremarkable. No hiatal hernia. UPPER ABDOMEN: Colonic diverticulosis. BONES: Old left rib fractures. CT/Chest without Contrast IMPRESSION: Bilateral patchy infiltrates, right more than left. Dilated ascending aorta. Electronically Signed: Francois Orellana DO at 17:17 EDT ,
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
[2022-05-18] MEDS: Ceftriaxone 1 GM/50 ML BAG IV (15:05)
[2022-05-18 15:34] LABS: Magnesium 2.4 mg/dL (1.6-2.6)
--- NOTE | 2022-05-18 16:08 | US_ITS ---
INDICATION: oliguria, KAYLEIGH, DIFFICULTY Urination EXAMINATION: Ultrasound US Kidney(s) complete (eg, kidneys and bladder) TECHNIQUE: Ellis scale and color doppler images were obtained of the kidneys. COMPARISON: None. FINDINGS: RIGHT KIDNEY: 11.4 x 5.5 x 4.9 cm. The cortex is 16 mm. There is no hydronephrosis. No shadowing calculus, focal lesion or perinephric collection is demonstrated. LEFT KIDNEY: 10.8 x 5.5 x 6.5 cm. The cortex is 17 mm. There is no hydronephrosis. No shadowing calculus, focal lesion or perinephric collection is demonstrated. URINARY BLADDER: It has a volume of 540 cc. US/Kidney and Bladder IMPRESSION: Negative renal ultrasound. Electronically Signed: Francois Orellana DO at 19:22 EDT Reading Location ID and State: [facility] / [place] Tel [phone], Service support ,
--- NOTE | 2022-05-18 16:44 | CPS ---
Critical ABG values, Dr. Cem foote.
[2022-05-18 16:45] LABS: Allen Test Positive; Base Excess 3 mmol/L (-2 to +2); Bicarbonate 30.6 mmol/L (22-26); Blood Gas Specimen Type ART; O2 Delivery Device Cannula; PO2 66 mmHG (75-100); SITE R Radial; SO2 88 % (95-99); Total Carbon Dioxide 33 mmol/L; pCO2 70.4 mmHg (35-45); pH 7.25 (7.35-7.45)
[2022-05-18 18:28] LABS: Amphetamine Urine VISTA NEGATIVE (<1000 ng/mL); Barbiturate Urine VISTA NEGATIVE (< 200 ng/mL); Benzodiazepine Urine VISTA NEGATIVE (< 200 ng/mL); Cocaine Urine VISTA NEGATIVE (< 300 ng/mL); Ecstacy Urine VISTA NEGATIVE (< 500 ng/mL); Methadone Urine VISTA NEGATIVE (< 300 ng/mL); PCP Urine VISTA NEGATIVE (< 25 ng/mL); THC Urine VISTA NEGATIVE (< 50 ng/mL); Vista UDS pH Range 5
[2022-05-18] MEDS: 0.9% Normal Saline 1,000 ML 75 ML IV (20:44)
[2022-05-18] MEDS: Pravastatin 40 MG Tablet PO (22:46)
[2022-05-18] MEDS: Gabapentin 300 MG Capsule PO (22:46)
[2022-05-18] MEDS: guaiFENesin 1,200 MG Tablet 1200 MG PO (22:46)
[2022-05-18] MEDS: APIXABAN 5 MG TABLET PO (22:46)
[2022-05-18] MEDS: Finasteride 5 MG Tablet PO (22:47)
[2022-05-18] MEDS: Cefepime HCl 2 GM in 0.9% NS 100 ML Minibag Q8 IV (22:47)
[2022-05-18 23:23] LABS: Probe Check PASS
[2022-05-18 23:24] LABS: M R Staph aureus DNA By PCR POSITIVE (Negative)
[2022-05-19] VITALS (17 sets, daily range): BP systolic 103–137; BP diastolic 66–91; PULSE 70–93; RESP 10–21; TEMP 36.4–36.7; O2SAT 92–97; BMI 35.1
[2022-05-19] MEDS: Ipratropium/Albuterol Sulfate 3 ML AMPUL.NEB INHALATION ×5 (03:17→19:54)
--- NOTE | 2022-05-19 04:16 | PCM.RX.CS ---
Consult Pharmacy has been consulted to manage selected antiobiotic: Vancomycin Type of Consult: New start Suspected Infection: Pneumonia Labs: Sodium 140 mmol/L (136-145) 05/18/22 12:20 Potassium 3.9 mmol/L (3.5-5.1) 05/18/22 12:20 Chloride 106 mmol/L (98-107) 05/18/22 12:20 Carbon Dioxide 29.0 mmol/L (21.0-32.0) 05/18/22 12:20 Anion Gap 5 (5-15) 05/18/22 12:20 BUN 35 mg/dL (7-18) H 05/18/22 12:20 Creatinine 1.84 mg/dL (0.70-1.30) H 05/18/22 12:20 Est GFR (MDRD) Af Amer 47 mL/min (>60) L 05/18/22 12:20 Est GFR (MDRD) Non-Af 39 mL/min (>60) L 05/18/22 12:20 BUN/Creatinine Ratio 19.0 RATIO (10-20) 05/18/22 12:20 Glucose 135 mg/dL (74-106) H 05/18/22 12:20 Microbiology: Microbiology 05/18/22 21:43 Urine, Clean Catch Legionella Antigen - Final 05/18/22 21:43 Urine, Clean Catch Streptococcus pneumoniae Antigen (M - Final 05/18/22 12:30 Nasal Secretion SARS-CoV-2 & FLU Antigen (Rapid) - Final Goal Trough: 15-20 mcg/mL Pharmacy Plan for Drug Dosing: Pharmacy Service will continue to monitor and adjust dosing as required. Medications Vancomycin HCl 750 mg/ Sodium (Chloride) 265 mls @ 250 mls/hr IV Q12H JAYLYN Discontinued Medications Vancomycin HCl 1,750 mg/ (Sodium Chloride) 535 mls @ 250 mls/hr IV X1 ONE Stop: 05/19/22 04:08 Last Admin: 05/19/22 02:07 Dose: 250 mls/hr Follow-Up Labs: Trough Vancomycin Labs to be done on [date and time ordered]: 05/20 @ [id number]
--- NOTE | 2022-05-19 05:16 | NURSING ---
pt unable to urinate, bladder scan for >567 urine in bladder. Straight cath pt per order w/ 1000 clear, yellow urine. Post void scan is <100. Per pt bladder feels a lot better at this time.
[2022-05-19 06:32] LABS: Absolute Lymphocyte Count 0.68 X10^3/uL (0.83-4.51); Absolute Neutrophil Count 14.6 X10^3/uL (2.0-7.7); Basophil# 0.02 X10^3/uL; Basophil% 0.1 % (0-1); Hematocrit 41.6 % (40-54); Hemoglobin 12.5 g/dL (13.0-16.5); Lymphocyte # 0.68 X10^3/ul (0.83-4.51); Lymphocyte % 4.2 % (19-41); Mean Corpuscular Hgb 28.7 pg (27.0-32.0); Mean Corpuscular Volume 95.4 fL (80-94); Mean Platelet Vol. 12.3 fl (6.2-12.0); Monocyte# 0.88 X10^3/uL; Monocyte% 5.4 % (0-10); NRBC Flagged by Analyzer 0 % (0-5); Neutrophil % 89.7 % (47-70); Platelet Count 173 K/mm3 (150-450); RBC Distribution Width CV 15.3 % (11.6-14.6); RBC Distribution Width SD 54.4 fl (35.1-43.9); Red Blood Count 4.36 M/mm3 (4.6-6.2); White Blood Count 16.3 K/mm3 (4.4-11.0)
[2022-05-19 07:07] LABS: Anion Gap 0 (5-15); BUN 33 mg/dL (7-18); BUN/Creat Ratio 24.4 RATIO (10-20); Calcium,Total 8.8 mg/dL (8.5-10.1); Chloride 109 mmol/L (98-107); Creatinine, Serum 1.35 mg/dL (0.70-1.30); EST Glomerular Filtration Rate 56 mL/min (>60); Est Glom Filt Rate - Afr Amer 67 mL/min (>60); Estimated Creatinine Clearance 52.37 ml/min; Glucose 138 mg/dL (74-106); Potassium 4.1 mmol/L (3.5-5.1); Sodium Level 139 mmol/L (136-145); Thyroid Stim Hormone (TSH) 0.46 uIU/mL (0.358-3.74)
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
[2022-05-19] MEDS: Cefepime HCl 2 GM in 0.9% NS 100 ML Minibag Q8 IV ×2 (10:41→22:28)
[2022-05-19] MEDS: Gabapentin 300 MG Capsule PO ×2 (10:44→22:17)
[2022-05-19] MEDS: Metoprolol Tartrate 25 MG Tablet 12.5 MG PO ×2 (10:45→22:18)
[2022-05-19] MEDS: guaiFENesin 1,200 MG Tablet 1200 MG PO ×2 (10:45→22:17)
[2022-05-19] MEDS: Azithromycin 250 MG Tablet 500 MG PO (10:46)
[2022-05-19] MEDS: Finasteride 5 MG Tablet PO (10:46)
[2022-05-19] MEDS: Escitalopram Oxalate 20 MG Tablet PO (10:46)
[2022-05-19] MEDS: APIXABAN 5 MG TABLET PO ×2 (10:46→22:17)
[2022-05-19] MEDS: Pravastatin 40 MG Tablet PO (22:18)
[2022-05-19] MEDS: Acetaminophen 325 MG Tablet 650 MG PO (22:40)
[2022-05-20] VITALS (17 sets, daily range): BP systolic 118–132; BP diastolic 67–87; PULSE 60–116; RESP 18–22; TEMP 36.6–36.9; O2SAT 88–96; BMI 35.0
[2022-05-20] MEDS: Ipratropium/Albuterol Sulfate 3 ML AMPUL.NEB INHALATION ×6 (00:06→22:55)
[2022-05-20 06:23] LABS: Absolute Lymphocyte Count 0.49 X10^3/uL (0.83-4.51); Absolute Neutrophil Count 13.8 X10^3/uL (2.0-7.7); Basophil# 0.01 X10^3/uL; Basophil% 0.1 % (0-1); Hematocrit 42.4 % (40-54); Hemoglobin 12.9 g/dL (13.0-16.5); Lymphocyte # 0.49 X10^3/ul (0.83-4.51); Lymphocyte % 3.3 % (19-41); Mean Corp Hgb Conc 30.4 g/dL (32-36); Mean Corpuscular Hgb 28.8 pg (27.0-32.0); Mean Corpuscular Volume 94.6 fL (80-94); Mean Platelet Vol. 12.6 fl (6.2-12.0); Monocyte# 0.53 X10^3/uL; Monocyte% 3.6 % (0-10); NRBC Flagged by Analyzer 0 % (0-5); Neutrophil # 13.77 X10^3/uL (2.7-7.7); Neutrophil % 92.5 % (47-70); POSITIVE DIFFERENTIAL YES; Platelet Count 204 K/mm3 (150-450); RBC Distribution Width CV 15.8 % (11.6-14.6); Red Blood Count 4.48 M/mm3 (4.6-6.2); White Blood Count 14.9 K/mm3 (4.4-11.0)
[2022-05-20 06:25] LABS: Differential Indicated SCAN CRITERIA MET
[2022-05-20 06:45] LABS: Anion Gap 2 (5-15); BUN 36 mg/dL (7-18); BUN/Creat Ratio 31.6 RATIO (10-20); Calcium,Total 9.1 mg/dL (8.5-10.1); Chloride 109 mmol/L (98-107); Creatinine, Serum 1.14 mg/dL (0.70-1.30); EST Glomerular Filtration Rate 68 mL/min (>60); Est Glom Filt Rate - Afr Amer 82 mL/min (>60); Estimated Creatinine Clearance 62.02 ml/min; Glucose 151 mg/dL (74-106); Potassium 4.5 mmol/L (3.5-5.1); Sodium Level 140 mmol/L (136-145)
[2022-05-20 07:16] LABS: Differential Comment SCANNED
[2022-05-20] MEDS: Cefepime HCl 2 GM in 0.9% NS 100 ML Minibag Q8 IV (08:41)
[2022-05-20] MEDS: Gabapentin 300 MG Capsule PO ×2 (08:44→23:16)
[2022-05-20] MEDS: guaiFENesin 1,200 MG Tablet 1200 MG PO ×2 (08:44→23:14)
[2022-05-20] MEDS: Escitalopram Oxalate 20 MG Tablet PO (08:44)
[2022-05-20] MEDS: APIXABAN 5 MG TABLET PO ×2 (08:44→23:16)
[2022-05-20] MEDS: Finasteride 5 MG Tablet PO (08:44)
[2022-05-20] MEDS: Azithromycin 250 MG Tablet 500 MG PO (08:45)
[2022-05-20] MEDS: Metoprolol Tartrate 25 MG Tablet 12.5 MG PO ×2 (08:45→23:15)
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
[2022-05-20 10:48] LABS: Pathologist Review Reviewed
[2022-05-20] MEDS: Tamsulosin HCl 0.4 MG Capsule PO ×2 (12:32→23:16)
[2022-05-20 15:06] LABS: Vancomycin, Trough Level 12.4 ug/mL (5.0-15.0)
--- NOTE | 2022-05-20 15:28 | PCM.RX.CS ---
Consult Pharmacy has been consulted to manage selected antiobiotic: Vancomycin Type of Consult: Follow-up Prior Doses of Antibiotics Received/Current Regimen: Prior dosing of 750mg iv q12h. Labs: Sodium 140 mmol/L (136-145) 05/20/22 04:42 Potassium 4.5 mmol/L (3.5-5.1) 05/20/22 04:42 Chloride 109 mmol/L (98-107) H 05/20/22 04:42 Carbon Dioxide 29.0 mmol/L (21.0-32.0) 05/20/22 04:42 Anion Gap 2 (5-15) L 05/20/22 04:42 BUN 36 mg/dL (7-18) H 05/20/22 04:42 Creatinine 1.14 mg/dL (0.70-1.30) 05/20/22 04:42 Est GFR (MDRD) Af Amer 82 mL/min (>60) 05/20/22 04:42 Est GFR (MDRD) Non-Af 68 mL/min (>60) 05/20/22 04:42 BUN/Creatinine Ratio 31.6 RATIO (10-20) H 05/20/22 04:42 Glucose 151 mg/dL (74-106) H 05/20/22 04:42 Vancomycin Trough 12.4 ug/mL (5.0-15.0) 05/20/22 13:33 Microbiology: Microbiology 05/18/22 15:12 Blood Culture (Wb) - Anticubital Right Blood Culture - Preliminary No growth in 48 hours. 05/18/22 15:20 Blood Culture (Wb) - Right Forearm Blood Culture - Preliminary No growth in 48 hours. 05/18/22 21:15 Mucosa - Nasopharyngeal Respiratory Panel (PCR) - Final 05/18/22 21:43 Urine, Clean Catch Legionella Antigen - Final 05/18/22 21:43 Urine, Clean Catch Streptococcus pneumoniae Antigen (M - Final 05/18/22 12:30 Nasal Secretion SARS-CoV-2 & FLU Antigen (Rapid) - Final Weight used for dosin.6 kg Estimated Creatinine Clearance: 75 ml//min Goal Trough: 15-20 mcg/mL Pharmacy Plan for Drug Dosing: Trough today 12.4 (~13.5 hrs post last dose). Below therapeutic desired range. Renal improved to Cr 1.14 and calculated Cr Cl ~75ml/min using an adjusted body weight of 85.5kg. Will increase dose to 1gm iv q12h and get new trough before 4th dose of new regimen. Pharmacy Service will continue to monitor and adjust dosing as required. Follow-Up Labs: Trough Vancomycin - 4.14.23 @1330 before 1400 dose
[2022-05-20] MEDS: Pravastatin 40 MG Tablet PO (23:16)
[2022-05-21] VITALS (14 sets, daily range): BP systolic 145–152; BP diastolic 101–105; PULSE 71–100; RESP 18–21; TEMP 36.7–36.9; O2SAT 88–96; BMI 35.6
[2022-05-21] MEDS: Cefepime HCl 2 GM in 0.9% NS 100 ML Minibag Q8 IV ×2 (00:15→09:20)
[2022-05-21] MEDS: Vancomycin IV 1,000 MG/200 ML BAG 200 MG IV ×2 (02:50→12:43)
[2022-05-21] MEDS: Ipratropium/Albuterol Sulfate 3 ML AMPUL.NEB INHALATION ×5 (03:45→23:14)
[2022-05-21 05:11] LABS: Absolute Lymphocyte Count 0.54 X10^3/uL (0.83-4.51); Absolute Neutrophil Count 10.4 X10^3/uL (2.0-7.7); Basophil# 0.01 X10^3/uL; Basophil% 0.1 % (0-1); Hematocrit 42.3 % (40-54); Hemoglobin 12.8 g/dL (13.0-16.5); Lymphocyte # 0.54 X10^3/ul (0.83-4.51); Lymphocyte % 4.7 % (19-41); Mean Corp Hgb Conc 30.3 g/dL (32-36); Mean Corpuscular Hgb 28.4 pg (27.0-32.0); Mean Platelet Vol. 12.1 fl (6.2-12.0); Monocyte# 0.53 X10^3/uL; Monocyte% 4.6 % (0-10); NRBC Flagged by Analyzer 0 % (0-5); Neutrophil % 90.1 % (47-70); POSITIVE DIFFERENTIAL YES; Platelet Count 194 K/mm3 (150-450); RBC Distribution Width CV 15.7 % (11.6-14.6); RBC Distribution Width SD 54.2 fl (35.1-43.9); White Blood Count 11.5 K/mm3 (4.4-11.0)
[2022-05-21 05:15] LABS: Differential Indicated SCAN CRITERIA MET
[2022-05-21 05:37] LABS: Anion Gap 1 (5-15); BUN 34 mg/dL (7-18); BUN/Creat Ratio 33.3 RATIO (10-20); Calcium,Total 9.2 mg/dL (8.5-10.1); Chloride 109 mmol/L (98-107); Creatinine, Serum 1.02 mg/dL (0.70-1.30); EST Glomerular Filtration Rate 77 mL/min (>60); Est Glom Filt Rate - Afr Amer 93 mL/min (>60); Estimated Creatinine Clearance 69.31 ml/min; Glucose 190 mg/dL (74-106); Potassium 4.4 mmol/L (3.5-5.1); Sodium Level 140 mmol/L (136-145)
[2022-05-21 06:06] LABS: Anisocytosis 1+
[2022-05-21] MEDS: 0.9% Saline Lock 10 ML Syringe IV ×2 (06:36→21:33)
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
[2022-05-21] MEDS: Tamsulosin HCl 0.4 MG Capsule PO ×2 (09:20→21:29)
[2022-05-21] MEDS: Escitalopram Oxalate 20 MG Tablet PO (09:20)
[2022-05-21] MEDS: APIXABAN 5 MG TABLET PO ×2 (09:20→21:29)
[2022-05-21] MEDS: Finasteride 5 MG Tablet PO (09:20)
[2022-05-21] MEDS: Metoprolol Tartrate 25 MG Tablet 12.5 MG PO ×2 (09:20→21:30)
[2022-05-21] MEDS: guaiFENesin 1,200 MG Tablet 1200 MG PO ×2 (09:21→21:31)
[2022-05-21] MEDS: Azithromycin 250 MG Tablet 500 MG PO (09:21)
[2022-05-21] MEDS: Gabapentin 300 MG Capsule PO ×2 (09:22→21:29)
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
--- NOTE | 2022-05-21 12:50 | PCM.DC ---
Discharge Instructions Follow Up Care Test Results: Test results from this visit will be discussed in further detail at your follow-up appointment, if applicable. 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
[2022-05-21] MEDS: Pravastatin 40 MG Tablet PO (21:31)
[2022-05-21] MEDS: Acetaminophen 325 MG Tablet 650 MG PO (21:37)
[2022-05-22] VITALS (10 sets, daily range): BP systolic 128–159; BP diastolic 83–102; PULSE 60–90; RESP 18–20; TEMP 36.4–36.8; O2SAT 86–96; BMI 35.8
[2022-05-22] MEDS: Vancomycin IV 1,000 MG/200 ML BAG 200 MG IV (02:03)
[2022-05-22] MEDS: Ipratropium/Albuterol Sulfate 3 ML AMPUL.NEB INHALATION ×3 (03:13→11:04)
[2022-05-22] MEDS: Gabapentin 300 MG Capsule PO (07:58)
[2022-05-22] MEDS: Tamsulosin HCl 0.4 MG Capsule PO (07:58)
[2022-05-22] MEDS: APIXABAN 5 MG TABLET PO (07:58)
[2022-05-22] MEDS: guaiFENesin 1,200 MG Tablet 1200 MG PO (07:58)
[2022-05-22] MEDS: Metoprolol Tartrate 25 MG Tablet 12.5 MG PO (07:59)
[2022-05-22] MEDS: Escitalopram Oxalate 20 MG Tablet PO (07:59)
[2022-05-22] MEDS: predniSONE 20 MG Tablet 40 MG PO (07:59)
[2022-05-22] MEDS: Finasteride 5 MG Tablet PO (07:59)
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
--- NOTE | 2022-05-22 11:34 | DCINST_ITS ---
Discharge Instructions Diet Discharge Diet: Low fat / Low cholesterol and Carb Control Diet Activity Discharge Activity: Return to Normal Activity Dressing / Incision Call your doctor if you observe: Fever of 101 or Higher, Shortness of breath, Dizziness, Fainting spells, Swelling in the ankles, Chest pain and Increased palpitations (irregular heartbeat) Follow Up Care Test Results: Test results from this visit will be discussed in further detail at your follow- up appointment, if applicable. Discharge Plan Admission Admit Date/Time: 05/18/22 14:40 Attending Provider: Sterling Bazan Primary Care Provider: Hector Head Consulting Providers: Kaiser Boswell ; Raymundo Holley ; Ubaldo Haddad ; Pravin Ludwgi ; Halie Cardona NP ; You Priest Discharge Orders/Prescriptions Prescriptions: New prednisone 10 mg tablet 40 mg PO BREAKFAST Qty: 32 0RF Rx Instructions: 4 tablets daily for 3 days then 3 tablets daily for 3 days then 2 tablets daily for 3 days then 1 tablet daily for 3 days then half tablet daily for 4 days Continued gabapentin 300 MG capsule 300 mg PO BID pravastatin 40 MG tablet 40 mg PO QHS finasteride 5 MG tablet 5 mg PO DAILY spironolactone 25 mg Tablet 25 mg PO DAILY losartan 25 mg tablet 25 mg PO DAILY bumetanide 1 mg tablet 1 mg PO DAILY escitalopram oxalate 20 mg tablet 20 mg PO DAILY Label Comments: TAKE ONE TABLET BY MOUTH EVERY EVENING metoprolol tartrate 25 mg tablet 12.5 mg PO BID Eliquis 5 mg Tablet 5 mg PO BID Jardiance 10 mg tablet 10 mg PO DAILY Referrals / Follow Up: Hector Head DO [Primary Care Provider] - Within 1 Week Disposition Disposition (needs filled in before D/C Order can be placed): Home, Self Care
--- NOTE | 2022-05-22 12:46 | PHA.DC.MC ---
Pharmacy Service has performed discharge medication reconciliation and counseling for this patient. The patient was counseled on the following discharge medications and changes in medications for homegoing were reviewed. 1. PREDNISONE The Reason for Use, instructions for use, and potential side effects were reviewed for all new medications. The patient's questions regarding all of their medications were answered. The patient was able to verbally demonstrate an understanding of their discharge medications. Home Medications gabapentin 300 mg capsule 300 mg PO BID Neuropathy 04/22/19 finasteride 5 mg tablet 5 mg PO DAILY bph 05/18/19 pravastatin 40 mg tablet 40 mg PO QHS High Cholesterol 05/18/19 apixaban 5 mg tablet (Eliquis) 5 mg PO BID 05/18/22 bumetanide 1 mg tablet 1 mg PO DAILY 05/18/22 empagliflozin 10 mg tablet (Jardiance) 10 mg PO DAILY 05/18/22 escitalopram oxalate 20 mg tablet 20 mg PO DAILY 05/18/22 losartan 25 mg tablet 25 mg PO DAILY 05/18/22 metoprolol tartrate 25 mg tablet 12.5 mg PO BID 05/18/22 spironolactone 25 mg tablet 25 mg PO DAILY 05/18/22 prednisone 10 mg tablet 40 mg PO BREAKFAST #32 tabs 05/22/22 The patient's discharge medication list was reviewed for discrepancies and discrepancies were resolved.
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
== END 2022-05-22 12:59 | disposition home or self-care (01) | DRG 917 ==
LOC: ED 15:14 → PCU 17:43
PROVIDERS: Internal Medicine; Admitting Provider Internal Medicine; Emergency Provider Emergency Medicine; PCP Preventive Medicine Occupational Medicine; Visit Provider Family Medicine
DX: T59.811A Toxic effect of smoke, accidental (unintentional), initial encounter (principal); G93.41 Metabolic encephalopathy; J96.22 Acute and chronic respiratory failure with hypercapnia; N17.9 Acute kidney failure, unspecified; J68.0 Bronchitis and pneumonitis due to chemicals, gases, fumes and vapors; J44.0 Chronic obstructive pulmonary disease with (acute) lower respiratory infection; E87.29 Other acidosis; E11.9 Type 2 diabetes mellitus without complications; I48.91 Unspecified atrial fibrillation; I10 Essential (primary) hypertension; E78.5 Hyperlipidemia, unspecified; I25.10 Atherosclerotic heart disease of native coronary artery without angina pectoris; F41.9 Anxiety disorder, unspecified; F32.A Depression, unspecified; G89.4 Chronic pain syndrome; N40.1 Benign prostatic hyperplasia with lower urinary tract symptoms; R33.8 Other retention of urine; E66.9 Obesity, unspecified; Z68.35 Body mass index [BMI] 35.0-35.9, adult; Z59.01 Sheltered homelessness; Z66 Do not resuscitate; Z95.1 Presence of aortocoronary bypass graft; Z99.81 Dependence on supplemental oxygen; Z79.01 Long term (current) use of anticoagulants; Z79.899 Other long term (current) drug therapy; Z87.891 Personal history of nicotine dependence
CPT/HCPCS: 36415; 36600; 71046; 71250; 76770; 80048; 80202; 80307; 82375; 82803; 83735; 83880; 84443; 84484; 85025; 87040; 87428; 87449; 87633; 87641; 93005; 94002; 94003; 94640; 94668; 94762; 97162; 97165; 99285; J7030; J7040; J7050; A4216; J0696

== ENCOUNTER 2022-06-28 09:07 | Emergency (ER) | payer MEDICARE, MEDICAID, SELFPAY ==
[2022-06-28 09:09] VITALS: BP 120/73; PULSE 92; RESP 16; TEMP 36.3; O2SAT 97; BMI 37.6
--- NOTE | 2022-06-28 09:18 | EX.ED.VIS.EY ---
HPI History of Present Illness Chief Complaint: Eye Problem Informant: patient Narrative Narrative: Patient states for the past 2 days his left periorbital area has been itchy, red, swollen, sore and painful. No systemic symptoms. Has a history of a left eye enucleation. He states he also has had a little bit of discharge he thinks it has been clear. He states he has had nothing get in that area that he knows of, but he states once in the past when a little bit of a strong soap got in there it did swell up and was uncomfortable similar to this. [facility] Medical History Accidental heroin overdose Acute respiratory failure with hypoxia KAYLEIGH (acute kidney injury) Alcohol abuse Anxiety Aspiration of gastric contents Borderline diabetes Chronic pain syndrome Coronary artery disease involving coronary bypass graft Depression Former tobacco use Hyperglycemia Hyperlipemia Hypokalemia Hypoxemia Polysubstance abuse Vision loss of left eye Home Medications gabapentin 300 mg capsule 300 mg PO BID Neuropathy 04/22/19 [History Last Taken 05/18/22] finasteride 5 mg tablet 5 mg PO DAILY bph 05/18/19 [History Last Taken 05/17/22] pravastatin 40 mg tablet 40 mg PO QHS High Cholesterol 05/18/19 [History Last Taken 05/17/22] apixaban 5 mg tablet (Eliquis) 5 mg PO BID 05/18/22 [History Last Taken 05/18/22] bumetanide 1 mg tablet 1 mg PO DAILY 05/18/22 [History Last Taken 05/18/22] empagliflozin 10 mg tablet (Jardiance) 10 mg PO DAILY 05/18/22 [History Last Taken 05/18/22] escitalopram oxalate 20 mg tablet 20 mg PO DAILY 05/18/22 [History Last Taken 05/17/22] losartan 25 mg tablet 25 mg PO DAILY 05/18/22 [History Last Taken 05/17/22] metoprolol tartrate 25 mg tablet 12.5 mg PO BID 05/18/22 [History Last Taken 05/18/22] spironolactone 25 mg tablet 25 mg PO DAILY 05/18/22 [History Last Taken 05/18/22] prednisone 10 mg tablet 40 mg PO BREAKFAST #32 tabs 05/22/22 [Rx Last Taken Unknown] clindamycin HCl 150 mg capsule 300 mg PO 4X/DAY #80 CAPSULES 06/28/22 [Rx Last Taken Unknown] Allergy/AdvReac Type Severity Reaction Status Date / Time Penicillins [PCN] Allergy Rash Verified 06/28/22 09:09 Family History Unknown Hypertension Surgical History H/O: knee surgery Hx of CABG Social History household members: friend(s) housing: other number of children: 1 current occupational status: disabled current occupational exposures/hazards: No pets and animals: No Smoking Status: Former smoker alcohol intake: former substance use type: former substance user, heroin and methamphetamine well-balanced diet: rarely or never what type of physical activity do you participate in: decline to answer ROS ROS ED Constitutional Constitutional ED: Denies chills or fever(s) Eyes Eyes: Reports as per HPI; Denies change in vision ENT ENT ED: Reports other Details: Left eye socket redness and swelling see HPI ; Denies ear pain, rhinorrhea or sore throat Neurologic Neurologic: Denies headache(s), paresthesias or weakness EXAM Physical Exam Const Vital Signs: 06/28/22 09:09 Temperature 97.4 F L Temperature Source Temporal Pulse Rate 92 Respiratory Rate 16 Blood Pressure 120/73 Blood Pressure Mean 88 Pulse Ox 97 Oxygen Delivery Method Room Air Positive well nourished and well developed General Appearance ED: well developed and NAD HEENT atraumatic; Negative for tenderness Mouth ED: Yes oral and palatal mucosa normal and Yes lips normal Mouth: oral and palatal mucosa normal and lips normal Eyes Eyes Narrative: Right eye normal. Left eye socket: Left eye has been enucleated. There is what appears to be preseptal superficial erythema, swelling it almost looks edematous at the lower eyelid, it is kind of boggy like it is just edematous and there is no abscess or induration. It is mildly tender only. There is no expressible discharge. The socket is unremarkable otherwise. There does not appear to be any type of excessive orbital pressure. Neck no lymphadenopathy and supple Neuro oriented x3, CN's II-XII intact bilaterally and gait normal Sensorium / Orientation: alert Skin Lesions: no lesions Rashes: no rashes MDM MDM MDM Narrative Medical decision making narrative: The appearance and examination of this seems more like a reaction than an infection, but it could be consistent with either 1 if it is early. I am not suspicious of any type of orbital/posterior/postseptal process. It all seems superficial. He is a diabetic. Given all this, we will put him on an antibiotic to cover the possibility of infection. Recommend follow-up with ophthalmology he is comfortable with that plan. Allergic to penicillin so we will put him on clindamycin. He knows to eat yogurt or take a probiotic. Discharge Plan Triage Chief Complaint: Eye Problem ED Provider: Lennox Tuttle Dx/Rx/DC Orders Clinical Impression: Preseptal cellulitis of left eye Instructions: ED Periorbital Cellulitis Prescriptions: New clindamycin HCl 150 mg capsule 300 mg PO 4X/DAY Qty: 80 0RF No Action gabapentin 300 MG capsule 300 mg PO BID pravastatin 40 MG tablet 40 mg PO QHS finasteride 5 MG tablet 5 mg PO DAILY spironolactone 25 mg Tablet 25 mg PO DAILY losartan 25 mg tablet 25 mg PO DAILY bumetanide 1 mg tablet 1 mg PO DAILY escitalopram oxalate 20 mg tablet 20 mg PO DAILY Label Comments: TAKE ONE TABLET BY MOUTH EVERY EVENING metoprolol tartrate 25 mg tablet 12.5 mg PO BID Eliquis 5 mg Tablet 5 mg PO BID Jardiance 10 mg tablet 10 mg PO DAILY prednisone 10 mg tablet 40 mg PO BREAKFAST Qty: 32 0RF Rx Instructions: 4 tablets daily for 3 days then 3 tablets daily for 3 days then 2 tablets daily for 3 days then 1 tablet daily for 3 days then half tablet daily for 4 days Primary Care Provider: Hector Head Referrals: Hao Almodovar MD [Med Staff - Active Staff] - 3-5 Days Hector Head DO [Primary Care Provider] - Disposition Disposition: Home, Self Care
[2022-06-28] MEDS: Clindamycin HCl 150 MG Capsule 300 MG PO (09:31)
== END 2022-06-28 09:36 | disposition home or self-care (01) ==
PROVIDERS: Emergency Provider Emergency Medicine; PCP Preventive Medicine Occupational Medicine; Visit Provider Emergency Medicine
DX: L03.213 Periorbital cellulitis (principal); E11.9 Type 2 diabetes mellitus without complications; E78.5 Hyperlipidemia, unspecified; I25.10 Atherosclerotic heart disease of native coronary artery without angina pectoris; Z87.891 Personal history of nicotine dependence; Z79.01 Long term (current) use of anticoagulants; F41.9 Anxiety disorder, unspecified; F32.A Depression, unspecified; Z95.1 Presence of aortocoronary bypass graft; Z79.899 Other long term (current) drug therapy
CPT/HCPCS: 99284

== ENCOUNTER 2022-07-17 20:44 | Emergency (ER) | payer MEDICARE, MEDICAID, SELFPAY ==
[2022-07-17 20:45] VITALS: BP 114/79; PULSE 89; RESP 18; TEMP 35.9; O2SAT 93
--- NOTE | 2022-07-17 21:12 | RAD_ITS ---
STUDY: X-RAY - LEFT SHOULDER REASON FOR EXAM: Male, 67 years old. Injury/Pain TECHNIQUE: 4 view(s) of the shoulder. COMPARISON: None. FINDINGS: There is mild degenerative arthrosis of the glenohumeral articulation. There is degenerative arthrosis of the acromioclavicular joint without inferior osseous spur formation. Normal acromion. Normal humeral head and visualized proximal humerus. The soft tissue structures are unremarkable. Normal visualized pulmonary apex. RAD/Shoulder min 2 Views IMPRESSION: No acute fracture or dislocation. 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 Electronically Signed: Nimesh Craig MD at 21:30 EDT ,
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
[2022-07-17 21:51] VITALS: BMI 39.2
== END 2022-07-17 22:05 | disposition home or self-care (01) ==
PROVIDERS: Emergency Provider Emergency Medicine; PCP Preventive Medicine Occupational Medicine; Visit Provider Emergency Medicine
DX: S40.012A Contusion of left shoulder, initial encounter (principal); I25.10 Atherosclerotic heart disease of native coronary artery without angina pectoris; Z95.1 Presence of aortocoronary bypass graft; Z87.891 Personal history of nicotine dependence; W19.XXXA Unspecified fall, initial encounter
CPT/HCPCS: 73030; 99282

== ENCOUNTER 2022-09-29 07:49 | Emergency (ER) | payer MEDICARE, MEDICAID, SELFPAY ==
[2022-09-29 07:50] VITALS: BP 160/109; PULSE 100; RESP 22; TEMP 37.1; O2SAT 96; BMI 38.0
[2022-09-29 07:54] VITALS: BP 160/109; PULSE 105; RESP 22; TEMP 37.1; O2SAT 95
[2022-09-29 07:59] VITALS: O2SAT 96
--- NOTE | 2022-09-29 08:05 | EDS_ITS ---
HPI HPI - URI History of Present Illness Chief Complaint: Shortness of Breath Detail of Chief Complaint: Cough Informant: patient Onset/Context/Timing Onset: Days Context: Gradual Onset Timing: Continuous Current Severity: Mild Maximum Severity: Mild Associated Symptoms Associated Symptoms: Positive for Nasal Congestion and Productive Cough Narrative Narrative: 67-year-old male who is currently homeless living at the [facility] has history of substance abuse, COPD typically supposed be on oxygen but has been without his oxygen since around May. History of CAD, A-fib on Eliquis which he says he has been taking and a borderline diabetic. For the last 2 to 3 days he has had a cough of yellowish sputum and felt short of breath. Denies any fever. Denies any chest pain. Denies any hemoptysis. Denies any recent hospitalization. Prior similar symptoms: Yes Recent Illness/Hospitalization: No ROS ROS ED ROS Narrative Cough. Yellow sputum. Shortness of breath. No fever. No chest pain. Review of Systems ROS Unobtainable: Denies due to encephalopathy Constitutional Constitutional ED: Denies chills or fever(s) Eyes Eyes: Denies blurry vision ENT ENT ED: Denies ear pain Respiratory/Chest Respiratory/Chest: Reports cough and dyspnea Gastrointestinal Gastrointestinal: Denies abdominal pain Genitourinary Genitourinary ED: Denies dysuria or hematuria Musculoskeletal Musculoskeletal: Denies arthralgias Integumentary Denies abscess Neurologic Neurologic: Denies headache(s) Psychiatric Psychiatric: Denies anxiety Endocrine Endocrinology: Denies cold intolerance Hematologic/Lymphatic Hematologic/Lymphatic: Denies easy bleeding or easy bruising Allergic/Immunologic Allergic/Immunologic ED: Denies mouth swelling or tongue swelling [facility] Medical History Accidental heroin overdose Acute respiratory failure with hypoxia KAYLEIGH (acute kidney injury) Alcohol abuse Anxiety Aspiration of gastric contents Borderline diabetes Chronic pain syndrome Coronary artery disease involving coronary bypass graft Depression Former tobacco use Hyperglycemia Hyperlipemia Hypokalemia Hypoxemia Polysubstance abuse Vision loss of left eye Home Medications gabapentin 300 mg capsule 300 mg PO BID Neuropathy 04/22/19 [History Last Taken 05/18/22] finasteride 5 mg tablet 5 mg PO DAILY bph 05/18/19 [History Last Taken 05/17/22] pravastatin 40 mg tablet 40 mg PO QHS High Cholesterol 05/18/19 [History Last Taken 05/17/22] apixaban 5 mg tablet (Eliquis) 5 mg PO BID 05/18/22 [History Last Taken 05/18/22] bumetanide 1 mg tablet 1 mg PO DAILY 05/18/22 [History Last Taken 05/18/22] empagliflozin 10 mg tablet (Jardiance) 10 mg PO DAILY 05/18/22 [History Last Taken 05/18/22] escitalopram oxalate 20 mg tablet 20 mg PO DAILY 05/18/22 [History Last Taken 05/17/22] losartan 25 mg tablet 25 mg PO DAILY 05/18/22 [History Last Taken 05/17/22] metoprolol tartrate 25 mg tablet 12.5 mg PO BID 05/18/22 [History Last Taken 05/18/22] spironolactone 25 mg tablet 25 mg PO DAILY 05/18/22 [History Last Taken 05/18/22] prednisone 10 mg tablet 40 mg (4 x 10 mg) PO BREAKFAST #32 tabs 05/22/22 [Rx Last Taken Unknown] clindamycin HCl 150 mg capsule 300 mg (2 x 150 mg) PO 4X/DAY #80 CAPSULES 06/28/22 [Rx Last Taken Unknown] Allergy/AdvReac Type Severity Reaction Status Date / Time Penicillins [PCN] Allergy Rash Verified 09/29/22 07:55 Family History Unknown Hypertension Surgical History H/O: knee surgery Hx of CABG Social History household members: friend(s) housing: other number of children: 1 current occupational status: disabled current occupational exposures/hazards: No pets and animals: No Smoking Status: Former smoker alcohol intake: former substance use type: former substance user, heroin and methamphetamine well-balanced diet: rarely or never what type of physical activity do you participate in: decline to answer EXAM Physical Exam Narrative Exam Narrative: 67-year-old male vital signs are stable afebrile. Pulse ox 96% on 3 and half liters. 95% on 3 L. He does not look septic or toxic. H EENT exam unremarkable. Neck nontender no JVD. No lymphadenopathy. Lungs clear to auscultation bilaterally. No rales, rhonchi or wheezing. Equal symmetrical. Heart A-fib rate about 105 no murmur. Chest wall nontender. Abdomen soft nontender. Moving all 4 extremities. Nontender no edema. Neurologically patient is awake and alert. Answering questions following commands. Const Vital Signs: 09/29/22 07:50 09/29/22 07:54 09/29/22 07:59 Temperature 98.7 F 98.7 F Temperature Source Temporal Temporal Pulse Rate 100 105 H Respiratory Rate 22 H 22 H Respiratory Effort Short of Breath Blood Pressure 160/109 H 160/109 H Blood Pressure Mean 126 126 Pulse Ox 96 95 Oxygen Delivery Method Nasal Cannula Nasal Cannula Nasal Cannula Oxygen Flow Rate (L/min) 3.5 3 09/29/22 09:53 Temperature Temperature Source Pulse Rate 97 Respiratory Rate 18 Respiratory Effort Blood Pressure 139/86 H Blood Pressure Mean 103 Pulse Ox 98 Oxygen Delivery Method Nasal Cannula Oxygen Flow Rate (L/min) Positive well nourished and well developed; Negative for cachectic or contractures General Appearance ED: well developed and NAD; Negative for cachectic, contractures, cyanotic, diaphoretic or pallor Nutritional Appearance: Negative for cachectic HEENT Reports moist mucous membranes normocephalic and atraumatic Face and Sinus: Negative for sinus tenderness Throat: posterior oropharynx normal Eyes PERRL and EOMs intact bilaterally General Eye ED: Negative for pale conjunctiva or scleral icterus Neck no lymphadenopathy, supple, no meningeal signs and no JVD General: Negative for anterior neck swelling or lymphadenopathy Resp normal respiratory effort and clear to auscultation bilaterally Effort and Inspection: Negative for retractions Auscultation: Negative for rales, rhonchi or wheezes Cardio S1 normal heart sound, S2 normal heart sound and no murmurs Cardio Narrative: A-fib rate of 105. Rate: tachycardic; Negative for regular rate Rhythm: abnormal rhythm; Negative for regular rhythm GI non-tender, non-distended and no masses Inspection: Negative for abdominal distention Auscultation: normoactive bowel sounds Palpation: soft; Negative for tender or guarding Back/Spine no CVA tenderness Extremity normal to inspection and full ROM General Extremety ED: Negative for cyanosis or tenderness General Extremity: Negative for cyanosis Neuro oriented x3 and CN's II-XII intact bilaterally Sensorium / Orientation: alert, oriented to person, oriented to place and oriented to time; Negative for orientation impaired, lethargic or stuporous Motor Exam: strength 5/5 throughout Psych mental status grossly normal Appearance: Negative for other Attitude: No agitated Mood & Affect: Negative for depressed, anxious or tearful Skin General Skin Exam: Negative for jaundice or pallor Lesions: no lesions Rashes: no rashes MDM MDM MDM Narrative Medical decision making narrative: 67-year-old male with extensive past medical history. Complaining of cough productive yellow sputum and shortness of breath. Differential would include viral URI, bronchitis, pneumonia, COVID, influenza versus other. Chest x-ray and labs will be obtained. Rapid COVID and influenza. Repeat exam patient is doing well at 10:36 AM. He had I went over his test results are unremarkable. He will be discharged back to the [facility]. Treated as a viral URI. History & Record Review Discussion w/independent historian: Patient Additional record(s) reviewed:: Prior inpatient record, Prior outpatient record, Prior ED visit and Prior labs Lab Data Attestation: I reviewed the patient's lab results. Lab results narrative: CBC showed a white count of 6.8. H&H of 14 and 45. Platelets were slightly low at 136. The mild thrombocytopenia is new compared to prior labs. Electrolytes showed a gap of 5. Normal BUN and creatinine at 10 and 0.9. Glucose 174. COVID and flu swabs are both negative. Labs: Laboratory Results - last 24 hr 09/29/22 07:55 WBC 6.8 RBC 4.65 Hgb 14.5 Hct 45.1 MCV 97.0 H MCH 31.2 MCHC 32.2 RDW Std Deviation 50.5 H RDW Coeff of Julianne 14.1 Plt Count 136 L MPV 12.0 Immature Gran % (Auto) 0.100 Neut % (Auto) 74.6 H Lymph % (Auto) 9.6 L [place] % (Auto) 12.2 H Eos % (Auto) 3.1 Baso % (Auto) 0.4 Absolute Neuts (auto) 5.1 Absolute Lymphs (auto) 0.65 L Nucleated RBC % 0 Sodium 142 Potassium 3.7 Chloride 108 H Carbon Dioxide 29.0 Anion Gap 5 BUN 10 Creatinine 0.96 Estim Creat Clear Calc 77.35 Est GFR (MDRD) Af Amer 100 Est GFR (MDRD) Non-Af 82 BUN/Creatinine Ratio 10.4 Glucose 174 H Calcium 8.9 Radiography Chest X-Ray - ED: Read by ED Physician, Read by Radiologist, Normal, Heart, Lungs, Mediastinum, Bony Structures, No Acute Disease and Chronic Changes Diagnostic Testing: Clinical Impression(s) from Imaging Studies Chest X-Ray 09/29/22 08:30 IMPRESSION: No radiographic evidence of acute cardiopulmonary disease. Electronically Signed: Isaac Moseley MD at 8:58 EDT , Chest x-ray, 2 views, AP and lateral, interpreted both of the cell and radiologist shows no acute abnormality. Currently there is a radiology upgrade going on I walked through the radiology department and reviewed the films there. Radiologist also read it we agree. Rhythm Strip Rhythm Strip: A-fib Rate: 101 Ectopy: None EKG Initial EKG: Attestation: I personally reviewed and interpreted this EKG as follows: Interpretation: Atrial Fibrillation Comments: A-fib rate of 101 no acute signs of NE or ischemia. Right bundle branch block. Discharge Plan Triage Chief Complaint: Shortness of Breath ED Provider: Alejandro Haddad Dx/Rx/DC Orders Clinical Impression: Chronic anticoagulation, History of substance abuse, Viral URI, History of atrial fibrillation Instructions: ED URI, Viral, No Abx (Adult) Prescriptions: No Action gabapentin 300 MG capsule 300 mg PO BID pravastatin 40 MG tablet 40 mg PO QHS finasteride 5 MG tablet 5 mg PO DAILY spironolactone 25 mg Tablet 25 mg PO DAILY losartan 25 mg tablet 25 mg PO DAILY bumetanide 1 mg tablet 1 mg PO DAILY escitalopram oxalate 20 mg tablet 20 mg PO DAILY Patient Comments: TAKE ONE TABLET BY MOUTH EVERY EVENING metoprolol tartrate 25 mg tablet 12.5 mg PO BID Eliquis 5 mg Tablet 5 mg PO BID Jardiance 10 mg tablet 10 mg PO DAILY prednisone 10 mg tablet 40 mg PO BREAKFAST Qty: 32 0RF Rx Instructions: 4 tablets daily for 3 days then 3 tablets daily for 3 days then 2 tablets daily for 3 days then 1 tablet daily for 3 days then half tablet daily for 4 days clindamycin HCl 150 mg capsule 300 mg PO 4X/DAY Qty: 80 0RF Primary Care Provider: Hector Head Referrals: Hector Head DO [Primary Care Provider] - 1 Week if not improving Activity Restrictions/Additional Instructions: Your labs and chest x-ray and EKG showed no acute changes. You have a viral respiratory infection. You do not need any antibiotics. Continue your current medications. If able to get your oxygen supply from your sister. Follow-up with your doctor as needed or return if worse. Disposition Disposition: Home, Self Care
[2022-09-29 08:26] LABS: Absolute Lymphocyte Count 0.65 X10^3/uL (0.83-4.51); Absolute Neutrophil Count 5.1 X10^3/uL (2.0-7.7); Basophil# 0.03 X10^3/uL; Basophil% 0.4 % (0-1); Eosinophil# 0.21 X10^3/uL; Eosinophils% 3.1 % (0-5); Hematocrit 45.1 % (40-54); Hemoglobin 14.5 g/dL (13.0-16.5); Lymphocyte # 0.65 X10^3/ul (0.83-4.51); Lymphocyte % 9.6 % (19-41); Mean Corp Hgb Conc 32.2 g/dL (32-36); Mean Corpuscular Hgb 31.2 pg (27.0-32.0); Monocyte# 0.83 X10^3/uL; Monocyte% 12.2 % (0-10); NRBC Flagged by Analyzer 0 % (0-5); Neutrophil # 5.06 X10^3/uL (2.7-7.7); Neutrophil % 74.6 % (47-70); Platelet Count 136 K/mm3 (150-450); RBC Distribution Width CV 14.1 % (11.6-14.6); RBC Distribution Width SD 50.5 fl (35.1-43.9); Red Blood Count 4.65 M/mm3 (4.6-6.2); White Blood Count 6.8 K/mm3 (4.4-11.0)
--- NOTE | 2022-09-29 08:30 | RAD_ITS ---
INDICATION: Shortness of breath EXAMINATION/TECHNIQUE: X-RAY - XR Chest 2 Views COMPARISON: Prior exam of 05/18/2022. FINDINGS: LINES/DEVICES: None. LUNGS: No consolidation, edema or effusion. No pneumothorax. MEDIASTINUM AND CARDIOVASCULAR STRUCTURES: Cardiac silhouette not enlarged. Central airways and mediastinal contour are unremarkable. BONES AND SOFT TISSUES: Stable soft tissues and osseous structures. RAD/Chest PA and Lateral IMPRESSION: No radiographic evidence of acute cardiopulmonary disease. Electronically Signed: Isaac Moseley MD at 8:58 EDT ,
[2022-09-29 08:36] LABS: Anion Gap 5 (5-15); BUN 10 mg/dL (7-18); BUN/Creat Ratio 10.4 RATIO (10-20); Calcium,Total 8.9 mg/dL (8.5-10.1); Chloride 108 mmol/L (98-107); Creatinine, Serum 0.96 mg/dL (0.70-1.30); EST Glomerular Filtration Rate 82 mL/min (>60); Est Glom Filt Rate - Afr Amer 100 mL/min (>60); Estimated Creatinine Clearance 77.35 ml/min; Glucose 174 mg/dL (74-106); Potassium 3.7 mmol/L (3.5-5.1); Sodium Level 142 mmol/L (136-145)
[2022-09-29 09:53] VITALS: BP 139/86; PULSE 97; RESP 18; O2SAT 98
[2022-09-29 11:38] VITALS: BP 137/98; PULSE 98; RESP 20; O2SAT 98
== END 2022-09-29 11:42 | disposition home or self-care (01) ==
PROVIDERS: Emergency Provider Emergency Medicine; PCP Preventive Medicine Occupational Medicine; Visit Provider Emergency Medicine
DX: Z79.01 Long term (current) use of anticoagulants (principal); I48.91 Unspecified atrial fibrillation; J06.9 Acute upper respiratory infection, unspecified; I25.10 Atherosclerotic heart disease of native coronary artery without angina pectoris; R73.03 Prediabetes; Z87.891 Personal history of nicotine dependence
CPT/HCPCS: 71046; 80048; 85025; 87428; 93005; 99285